=== PATIENT | male | born 1965 | race Caucasian/White ===

== ENCOUNTER 2021-08-31 16:00 | Emergency (ER) | payer BC, SELFPAY ==
[2021-08-31 16:15] VITALS: BP 141/89; PULSE 81; RESP 19; TEMP 36.8; O2SAT 98; BMI 31.7
--- NOTE | 2021-08-31 16:32 | HMH.EDUTC ---
[facility] [place] Disposition Clinical Impression: Eye injury Qualifiers: Encounter type: initial encounter Laterality: right Qualified Code(s): S05.91XA - Unspecified injury of right eye and orbit, initial encounter Disposition: Home, Self-Care Condition on Discharge: Good Instructions: DI for Eye Contusion, Eye Contusion Additional Instructions: Go straight to [facility] upon leaving the [facility] for further treatment and examination Further instruction per Dr Miguel Referrals: Provider,Referral, [Primary Care Provider] - Time of Disposition: 17:14 Medical Decision Making - Jimmy Inquiry Pt receiving controlled substance: No Jimmy was queried for this patient: No Vital Signs: 08/31/21 16:15 08/31/21 16:37 Temperature 98.3 F 98.3 F Temperature Source Oral Pulse Rate 81 Pulse Rate [Right Brachial] 81 Respiratory Rate 19 19 Blood Pressure 141/89 H Blood Pressure [Right Arm] 141/89 H Blood Pressure Mean [Right Arm] 106 Blood Pressure Source [Right Arm] Automatic Cuff Blood Pressure Position [Right Arm] Sitting 02 Sat by Pulse Oximetry 98 Oxygen Delivery Method Room Air Medical Decision Narrative: Patient not wanting to be transferred to the ED for further examination and treatment for being hit in eye yesterday with rock States that eye is sore and hurting and feels like something is in it Called [facility] and they advised to send patient to the clinic and they would see him there and patient agreed to go straight to Clinic [facility] [place] HPI - General Stated complaint: AO 08/30@1300 hit in R eye by rock Time Seen by Provider: 08/31/21 16:32 Mode of Arrival: Ambulatory Source of Information: Patient Limitations: No Limitations Description of Symptoms (Recalled from Triage Doc. by RN): PATIENT C/O GETTING HIT IN RIGHT EYE BY ROCK YESTERDAY HEENT Symptoms (Recalled from RN notes): Yes Resp Symptoms (Recalled from RN notes): No Skin Symptoms (Recalled from RN notes): No MS Symptoms (Recalled from RN notes): No Functional Status (Recalled from RN notes): WNL - History of Present Illness Provider Complaint: Patient states that he was weedeating yesterday when a rock flew up and hit him in the right eye States that ever since he has been having pain in right eye, redness, and eye feels sore Denies loss of vision statse that it feels like something is in there - Related Data Allergies Allergy/AdvReac Type Severity Reaction Status Date / Time Penicillins Allergy Verified 08/31/21 16:28 - Worker's Comp Is this a Worker's Comp case?: No [facility] History - Hepatitis A Screen Attestation statement:: This patient has been screened for Hepatitis A risk factors. I have reviewed the patient's past medical history: Yes ROS Obtained: Yes All systems reviewed & no additional complaints, Yes Systems reviewed as appropriate & no additional complaints - Constitutional Constitutional: Reports system reviewed and no additional complaints, except as docu, Denies body ache, Denies chills, Denies fever(s) - Eyes Eyes: Reports system reviewed and no additional complaints, except as docu, Reports irritation, Reports eye pain, Reports other (redness and states that eye feels sore and hurts ) - ENT Ears, Nose, Mouth, and Throat: Reports system reviewed and no additional complaints, except as docu - Cardiovascular Cardiovascular: Reports system reviewed and no additional complaints, except as docu - Respiratory Respiratory: Reports system reviewed and no additional complaints, except as docu - Gastrointestinal Gastrointestingal: Reports: system reviewed and no additional complaints, except as docu Physical Exam - General General appearance: alert, in no apparent distress - Eye Eye exam: Present: other (redness, pain with movement and feeling of FB sensation after being hit with rock in eye yesterday) - Respiratory Respiratory exam: Present: normal lung sounds bilaterally. Absent: respir
[2021-08-31 16:37] VITALS: BP 141/89; PULSE 81; RESP 19; TEMP 36.8; O2SAT 98
== END 2021-08-31 16:40 | disposition home or self-care (01) ==
PROVIDERS: Emergency Provider Nurse Practitioner
DX: S05.91XA Unspecified injury of right eye and orbit, initial encounter (principal); Y93.H2 Activity, gardening and landscaping; Z88.0 Allergy status to penicillin
CPT/HCPCS: 99212; G0463

== ENCOUNTER 2021-09-09 11:40 | Emergency (ER) | payer BC, SELFPAY ==
[2021-09-09 11:50] VITALS: BP 148/98; PULSE 89; RESP 19; TEMP 37.6; O2SAT 98; BMI 31.7
--- NOTE | 2021-09-09 12:04 | HMH.EDUTC ---
[facility] [place] Impression: Otitis media Qualifiers: Otitis media type: unspecified Laterality: left Qualified Code(s): H66.92 - Otitis media, unspecified, left ear URI (upper respiratory infection) Qualifiers: URI type: unspecified URI Qualified Code(s): J06.9 - Acute upper respiratory infection, unspecified Disposition: Home, Self-Care Condition on Discharge: Good Instructions: Sore Throat, Middle Ear Infection, DI for Rash Additional Instructions: *Monitor Temp, Over the counter Motrin or Tylenol as directed/as needed Tylenol every 4 hours and Motrin every 6 hours (as long as your family doctor has told you that you can take it) for fever or pain. and straight to ER if unable to lower temp less than 101.0 after medication given *Warm salt water gargles may help to soothe the throat *Throat Lozenges *Warm fluids like tea with honey may help to soothe the throat *Sleep elevated *Humidifier/Vaporizer Start oral steriods tomorrow Your throat swab was sent for culture. Those results are typically sent to your primary care. Be sure to follow up in 2-3 days with your family doctor/primary care physician if no improvement so they can review those result and treat if necessary. If you don?t have a primary care doctor, I recommend you get one but in the mean time, you will have to return to a walk in clinic Follow up IMMEDIATELY for new or worsening symptoms or no Noticeable improvement over the next 48-72 hours. 911 for difficulty breathing or swallowing You were tested for today for COVID19 your test result should be back in the next 24-48 hours, your results will be available on the [facility] My Health portal you can view your results there Prescriptions: methylPREDNISolone [Medrol 4mg tab] 4 mg PO DIRECTED #21 tab Transmission Status: Received by [id number] Azithromycin [Z-Ryne 250mg Tab] 250 mg PO DIRECTED #6 tab Transmission Status: Received by [id number] Referrals: Provider,Referral, [Primary Care Provider] - As needed Forms: Work/School Release Medical Decision Making - Jimmy Inquiry Pt receiving controlled substance: No Jimmy was queried for this patient: No Vital Signs: 09/09/21 11:50 09/09/21 12:43 Temperature 99.7 F H 99.7 F H Temperature Source Oral Pulse Rate 89 Pulse Rate [Right Brachial] 89 Respiratory Rate 19 19 Blood Pressure 148/98 H Blood Pressure [Right Arm] 148/98 H Blood Pressure Mean [Right Arm] 114 Blood Pressure Source [Right Arm] Automatic Cuff Blood Pressure Position [Right Arm] Sitting 02 Sat by Pulse Oximetry 98 Oxygen Delivery Method Room Air - Lab Data Lab Results 09/09/21 11:54: Group A Strep Rapid Negative Orders (Tests/Meds): ED MEDICATIONS Discontinued Medications Generic Name Dose Route Start Last Admin Trade Name Yoly PRN Reason Stop Dose Admin Methylprednisolone Sodium Succinate 125 mg 09/09/21 12:23 09/09/21 12:40 Methylprednisolone Sod Succ 125mg Vial IM 09/09/21 12:24 125 mg ONCE ONE Administration ORDERS Category Date Time Status Full Resp Panel w/COVID ([facility]) Routine Lab 09/09/21 12:25 Ordered Strep Screen Confirmation Stat Micro 09/09/21 11:54 Received [facility] HPI - General Stated complaint: sore throat, h/a, fever Time Seen by Provider: 09/09/21 12:04 Mode of Arrival: Ambulatory Source of Information: Patient Limitations: No Limitations Description of Symptoms (Recalled from Triage Doc. by RN): PATIENT C/O SORE THROAT, COUGH, AND FEVER SINCE YESTERDAY. ALSO C/O HIVES TO ARM THAT STARTED TODAY HEENT Symptoms (Recalled from RN notes): Yes Resp Symptoms (Recalled from RN notes): Yes Skin Symptoms (Recalled from RN notes): Yes MS Symptoms (Recalled from RN notes): No Functional Status (Recalled from RN notes): WNL - History of Present Illness Provider Complaint: Patient states that he started feeling bad yesterday State that he has been having sore throat, pain in hi
[2021-09-09 12:18] LABS: Strep Scrn Group A (Rapid) Negative (Negative)
[2021-09-09 12:43] VITALS: BP 148/98; PULSE 89; RESP 19; TEMP 37.6; O2SAT 98
[2021-09-09 12:48] LABS: Adenovirus,PCR Not Detected (NotDetected); Bordetella Pertussis Not Detected (NotDetected); Chlamydophila Pneumoniae, PCR Not Detected (NotDetected); Coronavirus 229E Not Detected (NotDetected); Coronavirus NL63 Not Detected (NotDetected); Coronavirus OC43 Not Detected (NotDetected); Coronovirus HKU1,PCR Not Detected (NotDetected); Human Metapneumovirus Not Detected (NotDetected); Influenza A, PCR Not Detected (NotDetected); Influenza AH1, 2009 Not Detected (NotDetected); Influenza AH1, PCR Not Detected (NotDetected); Influenza AH3,PCR Not Detected (NotDetected); Influenza B, PCR Not Detected (NotDetected); Mycoplasma Pneumoniae, PCR Not Detected (NotDetected); Parainfluenza 1, PCR Not Detected (NotDetected); Parainfluenza 2, PCR Not Detected (NotDetected); Parainfluenza 3, PCR Not Detected (NotDetected); Parainfluenza 4, PCR Not Detected (NotDetected); Respiratory Syncytial Virus Not Detected (NotDetected); Rhinovirus/Enterovirus Not Detected (NotDetected)
[2021-09-09 16:20] LABS: Coronavirus 19, PCR Detected (NotDetected)
== END 2021-09-09 12:50 | disposition home or self-care (01) ==
PROVIDERS: Emergency Provider Nurse Practitioner
DX: U07.1 COVID-19 (principal); H66.92 Otitis media, unspecified, left ear; J06.9 Acute upper respiratory infection, unspecified; J02.9 Acute pharyngitis, unspecified; R51.9 Headache, unspecified; R50.9 Fever, unspecified; L50.9 Urticaria, unspecified; Z20.822 Contact with and (suspected) exposure to COVID-19; Z79.52 Long term (current) use of systemic steroids; Z88.0 Allergy status to penicillin
CPT/HCPCS: 87430; 87581; 87632; 87798; 96372; 99213; C9803; G0463; U0003; U0005

== ENCOUNTER 2021-11-10 16:46 | Emergency (ER) | payer BC, SELFPAY ==
[2021-11-10 17:04] VITALS: BP 167/103; PULSE 87; RESP 17; TEMP 36.7; O2SAT 99; BMI 31.7
--- NOTE | 2021-11-10 17:07 | PC.NURSE ---
laceration set-up for MD at the bedside
--- NOTE | 2021-11-10 17:39 | HMH.EDGENADL ---
ED Disposition Clinical Impression: Laceration of scalp Disposition: Home, Self-Care Condition on Discharge: Good Instructions: DI for Laceration Repair Referrals: Provider,Referral, [Primary Care Provider] - - Critical Care Critical Care Time: No Attestation: On 11/10/21, the high probability of a clinically significant, sudden or life threatening deterioration of the following system(s) required my full and direct attention, intervention and personal management. The time I documented below is in addition to time spent performing reported procedures but includes the following listed in this critical care notation. Medical Decision Making - Jimmy Inquiry Pt receiving controlled substance: No Vital Signs: 11/10/21 17:04 Temperature 98.1 F Temperature Source Oral Pulse Rate [Left Radial] 87 Respiratory Rate 17 Blood Pressure [Right Arm] 167/103 H Blood Pressure Mean [Right Arm] 124 02 Sat by Pulse Oximetry 99 Oxygen Delivery Method Room Air Medical Decision Narrative: Patient presents for evaluation of a laceration over the parieto-occipital scalp. Tetanus was updated. Wound was repaired with 4-0 suture. Patient was given return precautions and was instructed to follow-up in 7 days for repeat evaluation of removal. General Adult HPI - General Chief complaint: Wound/Laceration Stated complaint: AO08/12@1600aT HOME LAC BACK OF HEAD Time Seen by Provider: 11/10/21 17:35 Mode of Arrival: Ambulatory Limitations: No Limitations Description of Symptoms (Recalled from ER Triage Doc. by RN): pt to ed c/o laceration to the back of the head. pt states he stepped on a garden hoe and it hit him in the back of the head. laceration bleeding controlled on arival to ed. - History of Present Illness HPI narrative: Patient presents to the emergency department for evaluation traumatic injury sustained by a garden hoe struck in the back of his head without loss of consciousness. Patient received a laceration, last tetanus 2014. No other acute complaints at this time. - Related Data Previous Rx's Medication Instructions Recorded Azithromycin [Z-Ryne 250mg Tab] 250 mg PO DIRECTED #6 tab 09/09/21 methylPREDNISolone [Medrol 4mg 4 mg PO DIRECTED #21 tab 09/09/21 tab] Allergies Allergy/AdvReac Type Severity Reaction Status Date / Time Penicillins Allergy Verified 08/31/21 16:28 [facility] History - Hepatitis A Screen Attestation statement:: This patient has been screened for Hepatitis A risk factors. I have reviewed the patient's past medical history: Yes - Social History Alcohol Intake: never Occupational Status: other ROS Obtained: Yes All systems reviewed & no additional complaints Physical Exam - General General appearance: alert, in no apparent distress - Head Head exam: normocephalic, other (2 cm linear laceration over the left parieto-occipital scalp that does not appear grossly contaminated) - Eye Eye exam: Present: normal appearance - Neck Neck exam: Present: normal inspection - Chest Chest inspection: Present: normal inspection - Respiratory Respiratory exam: Absent: respiratory distress - Cardiovascular Cardiovascular exam: Present: regular rate - Abdominal Exam Abdominal exam: Present: soft - Neurological Exam Neurological exam: Present: alert - Psychiatric Psychiatric exam: Present: normal affect - Skin Skin exam: Present: warm Procedures - Laceration Laceration 1 Site: scalp Side (If applicable): left Description: linear Depth: simple, single layer Local Anesthetic: lidocaine 1% Skin layer closed with: other (Prolene) Size (cm): other (2) Number of sutures: 4 Size: 4-0 Number of sutures: 4 Technique: simple, interrupted
[2021-11-10 17:57] VITALS: BP 140/88; PULSE 87; RESP 18; TEMP 36.8; O2SAT 99
== END 2021-11-10 17:58 | disposition home or self-care (01) ==
PROVIDERS: Emergency Provider Emergency Medicine
DX: S01.01XA Laceration without foreign body of scalp, initial encounter (principal); W22.8XXA Striking against or struck by other objects, initial encounter
CPT/HCPCS: 12001; 90471; 90715; 99284

== ENCOUNTER 2022-03-31 13:43 | Emergency (ER) | payer BC, SELFPAY ==
[2022-03-31 15:18] VITALS: BP 162/96; PULSE 115; RESP 18; TEMP 37.6; O2SAT 96; BMI 32.5
--- NOTE | 2022-03-31 15:18 | EXP.UTC ---
Discharge Plan Disposition Patient Disposition: Home, Self-Care Condition: Good Prescriptions Prescriptions: New benzonatate [benzonatate] 100 mg capsule 100 mg PO TIDP PRN (Reason: Cough) Qty: 30 0RF oseltamivir [Tamiflu] 75 mg capsule 75 mg PO BID Qty: 10 0RF methylprednisolone 4 mg Tablets,Dose Pack 4 mg PO DIRECTED Qty: 21 0RF ondansetron 4 mg Tablet,Disintegrating 4 mg PO Q8H PRN (Reason: Nausea) Qty: 12 0RF No Action azithromycin 250 MG tablet 250 mg PO DIRECTED Qty: 6 0RF Rx Instructions: Take two (2) tablets on day #1, then one (1) tablet day #2 thru #5 methylprednisolone 4 MG tablet 4 mg PO DIRECTED Qty: 21 0RF Rx Instructions: Take as directed on package instructions Referrals Follow up/Referrals: Provider,Referral, MD [Primary Care Provider] - See instructions Activity Restrictions/Add. Instructions Additional Instructions/Restrictions: Drink plenty of fluids. Take tylenol or ibuprofen for pain or fever. Take the medications as directed. Follow up with your regular doctor. GO TO THE ER FOR ANY WORSENING SYMPTOMS Clinical Impressions Clinical Impression: Influenza A Instructions Patient Instructions: DI for Influenza -- Adult, Oseltamivir Discharge ED Provider: Devang Izquierdo [facility] General Stated complaint: head congestion, chills, body aches Time Seen by Provider: 03/31/22 15:18 History of Present Illness Provider Complaint: He states that for the past 2 days he has had fever, chills, body aches, chest congestion, and malaise. His son currently has influenza A. Related Data Previous Rx's Medication Instructions Recorded azithromycin 250 mg tablet 250 mg PO DIRECTED #6 tabs 09/09/21 methylprednisolone 4 mg tablet 4 mg PO DIRECTED #21 tabs 09/09/21 benzonatate 100 mg capsule 100 mg PO TIDP PRN Cough #30 caps 03/31/22 methylprednisolone 4 mg tablets in 4 mg PO DIRECTED #21 tabs 03/31/22 a dose pack ondansetron 4 mg disintegrating 4 mg PO Q8H PRN Nausea #12 tabs 03/31/22 tablet oseltamivir 75 mg capsule (Tamiflu) 75 mg PO BID #10 caps 03/31/22 Allergies Allergy/AdvReac Type Severity Reaction Status Date / Time Penicillins Allergy Verified 08/31/21 16:28 [facility] Disclaimer: The information contained in this section may have been updated after the patient was seen, as this information can be updated by other users. Social History Smoking Status: Former smoker alcohol intake: never current occupational status: other Travel in the last 8 weeks: None ROS Obtained: Yes All systems reviewed & no additional complaints except as documented Constitutional Constitutional: Reports chills and Reports fever(s) Eyes Eyes: Denies eye discharge ENT Ears, Nose, Mouth, and Throat: Reports as per HPI Cardiovascular Cardiovascular: Denies chest pain Respiratory Respiratory: Denies chest congestion and Reports cough Gastrointestinal Gastrointestingal: Reports nausea; Denies abdominal pain, constipation, cramping, diarrhea or vomiting Musculoskeletal Musculoskeletal: Denies arthralgias Integumentary/Breasts Skin/Breast: Denies rash Neurologic Neurologic: Denies paresthesias Physical Exam General General appearance: alert and in no apparent distress Head Head exam: atraumatic, normocephalic and normal inspection Eye Eye exam: Present normal appearance, PERRL and EOMI ENT ENT exam: Present normal exam, normal oropharynx, mucous membranes moist, TM's normal bilaterally and normal external ear exam Neck Neck exam: Present normal inspection, full ROM and trachea midline; Absent meningismus or lymphadenopathy Chest Chest inspection: Present normal inspection and symmetric chest wall rise; Absent tenderness Respiratory Respiratory exam: Present normal lung sounds bilaterally; Absent respiratory distress Cardiovascular Cardiovascular exam: Present regu
[2022-03-31 15:22] LABS: UTC Strep Screen (Rapid) Negative (Negative)
[2022-03-31 15:23] LABS: UTC Influenza A Antigen Positive (Negative); UTC Influenza B Antigen Negative (Negative)
[2022-03-31 15:31] VITALS: BP 162/96; PULSE 115; RESP 18; TEMP 37.6
== END 2022-03-31 15:32 | disposition home or self-care (01) ==
PROVIDERS: Emergency Provider Nurse Practitioner Family
DX: J10.1 Influenza due to other identified influenza virus with other respiratory manifestations (principal)
CPT/HCPCS: 87804; 87880; 99212; G0463

== ENCOUNTER 2022-04-22 13:28 | Emergency (ER) | payer BC, SELFPAY ==
[2022-04-22 14:10] VITALS: BP 140/89; PULSE 89; RESP 19; TEMP 37.1; O2SAT 98; BMI 31.0
--- NOTE | 2022-04-22 14:48 | EXP.UTC ---
Discharge Plan Disposition Patient Disposition: Home, Self-Care Condition: Good Prescriptions Prescriptions: New azithromycin [Zithromax Z-Ryne] 250 mg tablet See Rx Instructions .ROUTE .COMPLEX 5 Days Qty: 6 0RF Rx Instructions: For 250 mg dose pack: take 500 mg today (day 1), then 250 mg for 4 days (days 2-5) methylprednisolone [Medrol (Ryne)] 4 mg tablets,dose pack See Rx Instructions .Route .COMPLEX 6 Days Qty: 21 0RF Rx Instructions: taper pack; fluticasone propionate [Flonase Allergy Relief] 50 mcg/actuation spray,suspension 1 spray intranasal DAILY Qty: 16 0RF Rx Instructions: administer into each nostril Referrals Follow up/Referrals: Provider,Referral, MD [Primary Care Provider] - See instructions Activity Restrictions/Add. Instructions Additional Instructions/Restrictions: Start oral steriods Medrol dose pack tomorrow Start antibiotic today Use flonase as directed may take a couple days to notice any changes Return if needed Clinical Impressions Clinical Impression: Sinusitis Qualifiers: Sinusitis location: unspecified location Chronicity: unspecified Qualified Code(s): J32.9 - Chronic sinusitis, unspecified Instructions Patient Instructions: Sinusitis, Sinus Headache, DI for Sinusitis Discharge ED Provider: Mellissa Aparicio [facility] General Stated complaint: Headache pressure congestion Mode of Arrival: Ambulatory Source of Information: Patient Limitations: No Limitations Time Seen by Provider: 04/22/22 14:48 Description of Symptoms (Recalled from Triage Doc. by RN): PATIENT C/O SINUS PRESSURE, HEADACHE, CONGESTION AND RUNNY NOSE X 1 WEEK HEENT Symptoms (Recalled from RN notes): Yes Resp Symptoms (Recalled from RN notes): No Skin Symptoms (Recalled from RN notes): No MS Symptoms (Recalled from RN notes): No Functional Status (Recalled from RN notes): WNL History of Present Illness Provider Complaint: Patient states that he has been having sinus pain and pressure along with headache and runny nose States that it has continued to get worse over the last week and today he was still not feeling any better States that he has tried several over the counter medication but not helped so he came in Related Data Previous Rx's Medication Instructions Recorded azithromycin 250 mg tablet See Rx Instructions PO .COMPLEX 5 04/22/22 (Zithromax Z-Ryne) days #6 tabs fluticasone propionate 50 1 spray intranasal DAILY #16 grams 04/22/22 mcg/actuation nasal spray,suspension (Flonase Allergy Relief) methylprednisolone 4 mg tablets in See Rx Instructions .Route 04/22/22 a dose pack (Medrol (Ryne)) .COMPLEX 6 days #21 tabs Allergies Allergy/AdvReac Type Severity Reaction Status Date / Time Penicillins Allergy Verified 08/31/21 16:28 Worker's Comp Is this a Worker's Comp case?: No [facility] Disclaimer: The information contained in this section may have been updated after the patient was seen, as this information can be updated by other users. Medical History (Updated 04/22/22 @ 14:57 by Mellissa Aparicio APRN) History of gastroesophageal reflux (GERD) Hypertension Social History (Updated 04/22/22 @ 14:22 by Salma Thomas RN) Smoking Status: Former smoker alcohol intake: never current occupational status: other Travel in the last 8 weeks: None ROS Obtained: Yes All systems reviewed & no additional complaints except as documented and Yes Systems reviewed as appropriate & no additional complaints except as documented Constitutional Constitutional: Reports system reviewed and no additional complaints, except as documented, Reports as per HPI and Reports headache(s) ENT Ears, Nose, Mouth, and Throat: Reports system reviewed and no additional complaints, except as documented, Reports as per HPI, Reports otalgia, Reports headache(s), Reports sinus pain and Reports sinus pressure Cardiovascular Cardiovascular: Reports system reviewed and no additional
[2022-04-22 15:06] VITALS: BP 140/89; PULSE 89; RESP 19; TEMP 37.1; O2SAT 98
== END 2022-04-22 15:11 | disposition home or self-care (01) ==
PROVIDERS: Emergency Provider Nurse Practitioner
DX: J32.9 Chronic sinusitis, unspecified (principal)
CPT/HCPCS: 96372; 99212; 99213; G0463

== ENCOUNTER 2022-10-03 11:06 | Emergency (ER) | payer BC, SELFPAY ==
[2022-10-03 11:07] VITALS: BP 146/106; PULSE 81; RESP 18; TEMP 36.8; O2SAT 100; BMI 32.5
--- NOTE | 2022-10-03 11:17 | EXP.UTC ---
Discharge Plan Disposition Patient Disposition: Home, Self-Care Condition: Good Prescriptions Prescriptions: New triamcinolone acetonide 0.1 % cream 1 applic topical BID PRN (Reason: itching) Qty: 30 0RF methylprednisolone 4 mg Tablets,Dose Pack 4 mg PO DIRECTED Qty: 21 0RF No Action azithromycin [Zithromax Z-Ryne] 250 mg tablet See Rx Instructions .ROUTE .COMPLEX 5 Days Qty: 6 0RF Rx Instructions: For 250 mg dose pack: take 500 mg today (day 1), then 250 mg for 4 days (days 2-5) methylprednisolone [Medrol (Ryne)] 4 mg tablets,dose pack See Rx Instructions .Route .COMPLEX 6 Days Qty: 21 0RF Rx Instructions: taper pack; fluticasone propionate [Flonase Allergy Relief] 50 mcg/actuation spray,suspension 1 spray intranasal DAILY Qty: 16 0RF Rx Instructions: administer into each nostril Referrals Follow up/Referrals: Onelia Benavides APRN [Primary Care Provider] - See instructions Activity Restrictions/Add. Instructions Additional Instructions/Restrictions: Rest the extremity, apply ice for 15 minutes as tolerated three or four times per day for the next couple of days, Elevate the extremity as tolerated while you are resting. Take the medications as directed. Apply the topical medication as directed if you have itching of site. Follow up with your regular doctor. GO TO THE ER FOR ANY WORSENING SYMPTOMS OR CONCERNS Clinical Impressions Clinical Impression: Sting, insect Instructions Patient Instructions: DI for Insect Bites and Stings, Triamcinolone Topical, Methylprednisolone Discharge ED Provider: Devang Izquierdo [facility] General Stated complaint: LT hand possible insect sting 10/02 Time Seen by Provider: 10/03/22 11:17 History of Present Illness Provider Complaint: He is here with complaints of being stung on his left hand yesterday. He has swelling and redness of the affected hand. he states that he was mowing his grass when the sting occurred. He denies any swelling of his mouth or throat. Related Data Previous Rx's Medication Instructions Recorded azithromycin 250 mg tablet See Rx Instructions PO .COMPLEX 5 04/22/22 (Zithromax Z-Ryne) days #6 tabs fluticasone propionate 50 1 spray intranasal DAILY #16 grams 04/22/22 mcg/actuation nasal spray,suspension (Flonase Allergy Relief) methylprednisolone 4 mg tablets in See Rx Instructions .Route 04/22/22 a dose pack (Medrol (Ryne)) .COMPLEX 6 days #21 tabs methylprednisolone 4 mg tablets in 4 mg PO DIRECTED #21 tabs 10/03/22 a dose pack triamcinolone acetonide 0.1 % 1 applic topical BID PRN itching 10/03/22 topical cream #30 grams Allergies Allergy/AdvReac Type Severity Reaction Status Date / Time Penicillins Allergy Verified 08/31/21 16:28 [facility] Disclaimer: The information contained in this section may have been updated after the patient was seen, as this information can be updated by other users. Medical History History of gastroesophageal reflux (GERD) Hypertension Social History Smoking Status: Former smoker alcohol intake: never current occupational status: other Travel in the last 8 weeks: None ROS Obtained: Yes All systems reviewed & no additional complaints except as documented Constitutional Constitutional: Denies chills and Denies fever(s) Eyes Eyes: Denies eye discharge ENT Ears, Nose, Mouth, and Throat: Denies dizziness, Denies otalgia and Denies sore throat Cardiovascular Cardiovascular: Denies chest pain Respiratory Respiratory: Denies shortness of breath, Denies chest congestion, Denies cough, Denies stridor and Denies wheezing Gastrointestinal Gastrointestingal: Denies nausea or vomiting Musculoskeletal Musculoskeletal: Reports system reviewed and no additional complaints, except as documented and Denies arthralgias Integumentary/Breast
[2022-10-03 11:46] VITALS: BP 146/106; PULSE 81; RESP 18; TEMP 36.8; O2SAT 100
== END 2022-10-03 11:47 | disposition home or self-care (01) ==
PROVIDERS: Emergency Provider Nurse Practitioner Family; PCP Nurse Practitioner Family
DX: S60.562A Insect bite (nonvenomous) of left hand, initial encounter (principal); W57.XXXA Bitten or stung by nonvenomous insect and other nonvenomous arthropods, initial encounter; I10 Essential (primary) hypertension; Z87.891 Personal history of nicotine dependence
CPT/HCPCS: 99212; 99214; G0463

== ENCOUNTER 2023-03-12 18:24 | Emergency (ER) | payer BC, SELFPAY ==
[2023-03-12 18:26] VITALS: BP 157/97; PULSE 98; RESP 18; TEMP 36.8; O2SAT 99; BMI 32.5
--- NOTE | 2023-03-12 18:38 | HMH.EDGENADL ---
Discharge Plan Disposition Patient Disposition: Home, Self-Care Prescriptions Prescriptions: New levofloxacin 750 mg tablet 750 mg PO DAILY 10 Days Qty: 10 0RF No Action venlafaxine 75 mg capsule,extended release 24hr 75 mg PO DAILY Patient Comments: TAKE 1 CAPSULE BY MOUTH ONCE DAILY, DO NOT CRUSH OR CHEW enalapril maleate 20 mg tablet 40 mg PO DAILY Patient Comments: TAKE 2 TABLETS BY MOUTH ONCE DAILY amlodipine 5 mg tablet 5 mg PO DAILY Patient Comments: TAKE 1 TABLET BY MOUTH ONCE DAILY lansoprazole 30 mg capsule,delayed release(DR/EC) 30 mg PO DAILY Referrals Follow up/Referrals: Froilan Jimenes MD [Staff Physician] - See instructions Provider,MD Yaneth [Primary Care Provider] - See instructions Activity Restrictions/Add. Instructions Additional Instructions/Restrictions: At this time is felt you are safe to be discharged home. If new or worsening symptoms please do not hesitate to return the emergency department. Please take antibiotics as prescribed and call and schedule an appointment with Dr. Jimenes as soon as you are able. For pain control please take Tylenol and ibuprofen every 6 hours. Clinical Impressions Clinical Impression: Acute epididymitis, Hydrocele Discharge ED Provider: Teddy Pierson General Adult HPI General Chief complaint: PAIN Stated complaint: groin pain Time Seen by Provider: 03/12/23 18:32 History of Present Illness HPI narrative: Patient is a 57-year-old male with past medical history of vasectomy, no significant pertinent past medical history who presents emergency department for evaluation of testicular pain. Onset was acute, occurring at 2 AM Saturday morning. It awoke patient from his sleep. He has no abdominal pain, no dysuria, no cough, no respiratory symptoms, no other acute complaints at this time. Patient has had persistent pain and swelling of his left testicle causing him to present here for continued evaluation. Related Data Home Medications Medication Instructions Recorded Confirmed amlodipine 5 mg tablet 5 mg PO DAILY 03/12/23 03/12/23 enalapril maleate 20 mg tablet 40 mg PO DAILY 03/12/23 03/12/23 lansoprazole 30 mg capsule,delayed 30 mg PO DAILY 03/12/23 03/12/23 release venlafaxine 75 mg capsule,extended 75 mg PO DAILY 03/12/23 03/12/23 release 24 hr Previous Rx's Medication Instructions Recorded levofloxacin 750 mg tablet 750 mg PO DAILY 10 days #10 tabs 03/12/23 Allergies Allergy/AdvReac Type Severity Reaction Status Date / Time Penicillins Allergy Verified 08/31/21 16:28 [facility] Disclaimer: The information contained in this section may have been updated after the patient was seen, as this information can be updated by other users. Medical History History of gastroesophageal reflux (GERD) Hypertension Social History Smoking Status: Never smoker alcohol intake: never current occupational status: other Travel in the last 8 weeks: None ROS Obtained: Yes Systems reviewed as appropriate & no additional complaints except as documented Physical Exam General General appearance: alert and in no apparent distress Head Head exam: atraumatic and normocephalic Eye Eye exam: Present PERRL and EOMI ENT ENT exam: Present mucous membranes moist Neck Neck exam: Present normal inspection Chest Chest inspection: Present normal inspection and symmetric chest wall rise Respiratory Respiratory exam: Absent respiratory distress Cardiovascular Cardiovascular exam: Present regular rate and normal rhythm Abdominal Exam Abdominal exam: Present soft; Absent tenderness exam: Present other (Tier In present, asymmetrically swollen left testicle that is tender to palpation, high lie, no tenderness or masses in the bilateral inguinal canals. Nontender right testicle. No lesio
--- NOTE | 2023-03-12 18:44 | US_ITS ---
PROCEDURE INFORMATION: Exam: US Scrotum Exam date and time: 03/12/2023 7:10 PM Age: 57 years old Clinical indication: Scrotum pain; Additional info: L testicle pain, swelling TECHNIQUE: Imaging protocol: Real-time ultrasound of the scrotum and contents with color Doppler and image documentation. COMPARISON: No relevant prior studies available. FINDINGS: Right testicle: Normal. No mass. No torsion. Normal vascular flow. Left testicle: Normal. No mass. No torsion. Normal vascular flow. Epididymides: Mildly thickened right epididymis demonstrating normal vascularity. Mild thickened left epididymis demonstrating mildly increased vascularity. Scrotum/soft tissues: Small bilateral debris containing hydroceles. IMPRESSION: 1. Mildly thickened left epididymis demonstrating mildly increased vascularity, findings suggestive of mild epididymitis. 2. Small bilateral debris containing hydroceles.
--- NOTE | 2023-03-12 18:45 | PC.NURSE ---
spoke with radiology and had US paged for r/o testicular torsion
[2023-03-12 19:07] LABS: Basophils # 0.1 K/mm3 (0-0.2); Basophils % 0.8 % (0.1-2.0); Eosinophils # 0.1 K/mm3 (0.0-0.4); Eosinophils % 2.1 % (0.1-12.0); Hematocrit 42.6 % (42.0-52.0); Hemoglobin 14.8 g/dL (14.1-18.0); Lymphocytes # 1.5 K/mm3 (0.7-4.5); Lymphocytes % 23.9 % (10-50); Mean Corpuscular HGB Conc 34.7 g/dL (31.8-35.4); Mean Corpuscular Hemoglobin 32.2 pg (27.0-31.2); Mean Corpuscular Volume 92.8 fl (80-94); Mean Platelet Volume 7.4 fl (7.4-10.4); Monocytes # 0.4 K/mm3 (0.1-1.0); Monocytes % 6.1 % (1.7-9.3); Neutrophils # 4.2 K/mm3 (1.8-7.8); Neutrophils % 67.1 % (37.0-80.0); Platelet Count 412 K/mm3 (142-424); Red Blood Count 4.59 M/mm3 (4.60-6.20); Red Cell Distribution Width 12.9 % (11.5-17.5); White Blood Count 6.2 K/mm3 (4.8-10.8)
[2023-03-12 19:12] LABS: Chloride 93 mmol/L (98-107); Sodium 133 mmol/L (136-145)
[2023-03-12 19:15] LABS: Blood Urea Nitrogen 12 mg/dl (9-20); Calcium 9.5 mg/dl (8.4-10.2); Carbon Dioxide 31 mmol/L (22.0-30.0); Creatinine Clearance Estimated 129 mL/min (50-200); Estimated Glomerular Filt Rate 87 ml/min (>60); GFR (African American) 106 ML/MIN (>60); Glucose 98 mg/dl (74-100)
[2023-03-12 19:24] LABS: Microscopic, Urine URINE MICROSCOPIC (MICROSCOPIC)
--- NOTE | 2023-03-12 19:41 | PC.NURSE ---
pt back from US
[2023-03-12 19:43] VITALS: BP 144/94; PULSE 82; O2SAT 100
[2023-03-12 19:52] LABS: Appearance,Urine CLEAR (Clear); Bilirubin,Urine Negative (Negative); Blood, Urine Negative (Negative); Color,Urine YELLOW (Yellow); Glucose,Urine (UA) Negative (Negative); Ketones,Urine Negative (Negative); Leukocyte Esterase,Urine Negative (Negative); Nitrate,Urine Negative (Negative); Protein,Urine Negative (Negative); Specific Gravity, Urine 1.015 (1.005-1.030)
[2023-03-12 20:09] VITALS: BP 136/82; PULSE 79; RESP 18; TEMP 37; O2SAT 96
[2023-03-12 20:20] LABS: Squamous Epithelial Cell,Urine Occasional #/hpf (0-5)
== END 2023-03-12 20:14 | disposition home or self-care (01) ==
PROVIDERS: Emergency Provider Emergency Medicine
DX: N45.1 Epididymitis (principal); N43.3 Hydrocele, unspecified; I10 Essential (primary) hypertension
CPT/HCPCS: 76870; 80048; 81001; 85025; 96374; 96375; 99285; J0131

== ENCOUNTER 2024-07-19 20:28 | Emergency (ER) | payer BC, SELFPAY ==
--- OUTSIDE RECORDS SUMMARY | 2024-07-19 20:41 | XMS_ITS | Continuity of Care Document ---
Author Organization [facility] [place] Address [address] [place] [address] Care Team Providers Care Manager Care Management Name Role Phone JAMES PEDERSON Orthopedic Surgeon Assessment No assessment recorded. Plan of Treatment Reminders Order Date Submit Date Provider Last Modified By Organization Details Last Modified Time Details Appointments RECHEC K 2024 01:00P M JAMES PEDERSON MD Not available Not available Not available Lab None record ed. Referral None record ed. Procedures None record ed. Surgeries None record ed. Imaging XR, knee, 3 view - room [address] , [place], [address], 06/02/2024 15:44:18 XR, tibia + fibula [address] [place], [address], 06/02/2024 15:03:02 Medication Orders None record ed. Patient TargetsNo targets recorded. Patient InstructionsNo instructions recorded. Reason for Referral None Reported. Results Created Date Observation Date Name Description Value Unit Range Abnormal Flag Note LastModifiedBy Organization Detail LastModifiedTime 05/21/1905/21/2024 XR, knee, [address] [place] [address] [phone] Rodrigue alberto Name: SOCO FRIEDMAN Maurizio alberto : 967 Rodrigue alberto 87 Orderi ng Provid er: DULCE MINAYA EXAM DATE: 2024 EXAM: XR LT KNEE 3 VIEWS COMPAR CHELSEY: 025 HISTOR Y: Follow -up of prior surger y. FINDIN GS: Again seen is a left knee total arthro plasty . There is no eviden ce of loosen ing. No fractu re is identi fied. Contra latera l knee: There are mild degene rative change s. IMPRES URBANO: 1. There is a left total knee arthro plasty in place withou t eviden ce of loosen ing. Interp reted By: Khloe emmanuel MD Electr onical ly Signed By: Khloe emmanuel MD on 2:53 PM [email or web address] [facility] [address] , [place], [address], 05/21/2024 15:05:55 06/03/1906/02/2024 [facility] [address] [place] [address] Rodrigue alberto Name: SOCO alberto : 967 Rodrigue alberto 87 Orderi ng Provid er: SPARKLE BRUNA EXAM DATE: 2024 EXAM: XR LT TIB/FI B HISTOR Y: Follow -up of a left knee arthro plasty COMPAR CHELSEY: Radiog raph of the same date FINDIN GS: There is a left knee arthro plasty in place. There is no eviden ce of loosen ing. No acute fractu re is identi fied. There are postsu rgical change s in the mid shaft of the tibia. IMPRES URBANO: 1. There is a left knee arthro plasty in place. Interp reted By: Khloe emmanuel MD Electr onical ly Signed By: Khloe emmanuel MD on 06/03/19 2:57 PM [email or web address] [facility] [place] [address] , [place], [address], 06/05/2024 13:28:12 06/03/19 25 06/02/2024 XR, knee, 3 view [facility] [address] [place] [address] Rodrigue alberto Name: SOCO alberto : 967 Rodrigue alberto 87 Orderi ng Provid er: [facility] EXAM DATE: 2024 EXAM: XR LT KNEE 3 VIEWS COMPAR CHELSEY: 025 HISTOR Y: Follow -up of prior surger y. FINDIN GS: Again seen is a left knee total arthro plasty . There is mild lucenc y adjace nt to the stem of the tibial compon ent. No fractu re is identi fied. There is anteri or soft tissue swelli ng. Contra latera l knee: There are mild degene rative change s. IMPRES URBANO: 1. There is a left total knee arthro plasty in place with mild lucenc y adjace nt to the stem of the tibial compon ent. Interp reted By: Khloe emmanuel MD Electr onical ly Signed By: Khloe emmanuel MD on 06/03/19 3:39 PM [email or web address] [facility] [place] [address], [place], [address], 06/05/2024 13:28:12 07/08/19 25 07/07/2024 XR, tibia + fibul a [facility] [address] [address] Rodrigue alberto Name: SOCO alberto : 967 Rodrigue alberto 87 Orderi ng Provid er: [facility] EXAM DATE: 2024 EXAM: XR LT TIB/FI B HISTOR Y: Left lower leg infect ion COMPAR CHELSEY: None. FINDIN GS: There is a left total knee arthro plasty in place. There is no eviden ce of loosen ing. The left tibia and fibula are normal in alignm ent. No acute fractu re is identi fied. No acute perios teal thicke mireille is seen. IMPRES URBANO: 1. There is a left knee arthro plasty in place. Interp reted By: Khloe emmanuel MD Electr onical ly Signed By: Khloe emmanuel MD on 07/08/19 2:55 PM INTERFACE [facility] [address] , [place], [address], 07/07/2024 15:00:14 07/08/1907/07/2024 XR, joint , multi ple, 1 view [facility] [address] [place] [address] Patien t Name: SOCO alberto : 967 Patien t 87 Orderi ng Provid er: SPARKLE MCFARLAND EXAM DATE: 2024 EXAM: XR LONG LEG LEFT/ JOINT SURVEY COMPAR CHELSEY: Radiog raph of the same date HISTOR Y: Follow -up of prior surger ySharmila GILES GS: There is a left total knee arthro plasty in place. There is no eviden ce of loosen ing or compli cation . The mechan ical axis of the left knee is normal . No fractu re is identi fied. There are mild degene rative change s in the left hip and minima l degene rative change s in the ankle. IMPRES URBANO: 1. There is a left knee arthro plasty in place withou t eviden ce of compli cation . Interp reted By: Khloe emmanuel MD Electr onical ly Signed By: Khloe emmanuel MD on 07/08/19 2:55 PM [facility] [address] , [place], [address], 07/10/2024 12:43:09 07/15/1907/14/2024 CT, lower leg, w/o contr ast [facility] [address] [facility] [place] [address] Rodrigue alberto Name: SOCO alberto : 967 Rodrigue alberto 87 Orderi ng Provid er: SPARKLE MCFARLAND EXAM DATE: 2024 EXAM: CT LT TIB-FI B/CALF WITHOU T CONTRA ST HISTOR Y: 58-yea r-old male with a soft tissue mass along the anteri or aspect of the left lower leg. COMPAR CHELSEY: 07/08/19 25 TECHNI QUE: 1.0 mm axial direct images were obtain ed throug h the left tibia and fibula , and comput er genera shabnam lezama l, sagjelani al, and reform atted axial sequen meera were genera shabnam from the source images . FINDIN GS: The left tibia and fibula are normal in alignm ent. No fractu re is identi fied. There are mild degene rative change s in the ankle. There is a left total knee arthro plasty in place. There is no eviden ce of loosen ing of the arthro plasty . There is soft tissue promin ence along the anteri or margin of the tibial shaft. This is immedi ately adjace nt to a postsu rgical cortic al defect made in the tibia. This measur es approx imatel y 1.5 cm cranio caudad , 1.5 cm transv erse and 5 mm in thickn ess. There is mildly increa sed attenu ation in the anteri or aspect of the adjace nt intram edulla ry space. The muscle s of the left lower leg appear normal . There is no focal fatty infilt ration or atroph y. No tendon tear is identi fied. IMPRES URBANO: 1. There is focal soft tissue promin ence along the anteri or margin of the left tibial shaft which is immedi ately adjace nt to 2 postsu rgical cortic al defect s made in the tibia. There is also mildly increa sed attenu ation in the anteri or aspect of the adjace nt intram edulla ry space. There is soft tissue promin ence could repres ent scarri ng, but an infect ion extend ing into the adjace nt bone cannot be exclud ed. Interp reted By: Khloe emmanuel MD Electr onical ly Signed By: Khloe emmanuel MD on 025 4:[email or web address] Radiology [facility] [address] [place], [address], 07/15/2024 14:36:18 Result Notes None recorded. Problems Name Problem SNOMED Code Status Onset Date Resolution Date Notes Provider Name and Address Organization Details Recorded Time Pain of left knee joint 1361127345501 07 Active 2023 ROBERT GAITAN, PT, DPT [address] [place], [address], [facility] 4 14:18:00 Osteoarthri tis of left knee joint [id number] 09 Active 2023 ROBERT GAITAN, PT, DPT [address] [place], [address], [facility] 4 14:18:01 Problem Notes None recorded. Procedures Surgical History Date Name Laterality Status Provider Name and Address Organization Details Recorded Time 5 I&D Hematoma, Seroma or Fluid Collection completed SPARKLE MCFARLAND PA-C [address] [place], [address], [facility] 06/30/2024 12:24:55 5 total replacement of left knee joint completed Blanquita Saenz [facility] 04/30/2024 08:22:45 5 PCM Visit completed Mia Mccray [facility] 04/07/2024 15:29:36 4 PT Evaluation - Low Complexity completed ROBERT GAITAN, PT, DPT [address] [place], [address], [facility] 03/31/2024 14:16:18 4 PT Therapeutic Exercise completed ROBERT GAITAN, PT, DPT [address] [place], [address], [facility] 03/31/2024 14:17:47 4 Aspiration Joint/Bursa, Major completed DULCE MINAYA PA-C [address] [place], [address], [facility] 01/29/2024 12:37:10 4 arthroscopy of knee completed Liz Gary [facility] 01/29/2024 11:11:26 Orthopedic Surgery completed Liz Gary [facility] 01/29/2024 11:13:06 Imaging Results None recorded. Procedure Notes None recorded. Medical Equipment None Reported. Allergies Allergen ID Allergen Name Allergen Category Reaction Reaction Severity Criticality Documentation Date Start Date Code Code System Note Provider Name and Address Organization Details Recorded Time 538306 Product containin g penicilli n (product) medicatio n Not available Not available Not available 01/29/2024 93775 8001 SNOMED HAROLDO ASENCIO MD [address] [place], [address] , [facility] 5 14:20:36 327949 acetamino phen / oxycodone medicatio n Not available Not available Not available 01/29/2024 86659 3 RxNorm Sukhdevcecilia Gary [facility] 4 11:09:45 Medications Name Sig Start Date Stop Date Status Note LastModified by Organization Details LastModified Time Colace 100 mg capsule Take 1 capsule twice a day by oral route for 14 days, for constipat ion. 2024 active Not Available Not Available Not Avai lable hydrocodone 5 mg-acetamin ophen 325 mg tablet Take 1 tablet every 6 hours by oral route. 06/02 completed Not Available Not Available Not Available enalapril maleate 20 mg tablet Take 2 tablets every day by oral route. active Not Available Not Available No t Available meloxicam 15 mg tablet Take 1 tablet every day by oral route, for inflammat ion. 06/02 completed Not Available Not Available Not Available ondansetron HCl 4 mg tablet Take 1 tablet every 8 hours by oral route as needed, for nausea. 06/02 completed Not Available Not Available Not Available Medrol (Ryne) 4 mg tablets in a dose pack Take 1 dose pk every day by oral route. 06/02 completed Not Available Not Available Not Available aspirin 81 mg tablet,alma yed release Take 1 tablet twice a day by oral route for 30 days, for preventio n of blood clots. 06/02 completed Not Available Not Available Not Available tramadol 50 mg tablet Take 1 tablet every 6 hours by oral route. 2024 active Not Available Not Available Not Avai lable cefadroxil 500 mg capsule Take 1 capsule twice a day by oral route for 7 days, for infection preventio n. 06/02 completed Not Available Not Available Not Available hydrocodone 7.5 mg-acetamin ophen 325 mg tablet Take 1 tablet every 6 hours by oral route as needed, for left knee post op pain. 06/02 completed Not Available Not Available Not Available cephalexin 500 mg capsule Take 1 capsule twice a day by oral route with meal(s) for 10 days. 06/30 completed Not Available Not Available Not Available ibuprofen 600 mg tablet Take 1 tablet 3 times a day by oral route. 06/02 completed PRN Not Available Not Available Not Available Bactrim DS 800 mg-160 mg tablet Take 1 tablet every 12 hours by oral route for 10 days. 2024 active Not Available Not Available Not Avai lable Lyrica 75 mg capsule Take 1 capsule every day by oral route at bedtime, for nerve pain. 06/02 completed Not Available Not Available Not Available Effexor XR active Not Available Not Av ailable Not Available Norvasc active Not Available Not Avail able Not Available allopurinol 03/31 completed Not Available Not Available Not Available Prevacid active Not Available Not Avai lable Not Available tranexamic acid 650 mg tablet Take 1 tablet 3 times a day by oral route for 3 days, for minimizin g post operative bleeding. 06/02 completed Not Available Not Available Not Available Vitals Date Recorded Body height Body mass index (BMI) Body weight Pain severity - 0-10 verbal numeric rating [Score] - Reported Provider Name and Address Organization Details Last Updated DateTime 06/02/2024 175.26 cm 32.5 kg/m2 37639.32 g 4 Blanquita Saenz [facility] 06/02/2024 13:49:04 Social History Question Answer Notes LastModified by Organizat ion Details LastModified Time Tobacco Smoking Status Never Smoker Blanquita Saenz [facility] 04/30/2024 08:22:33 What Is Your Level Of Alcohol Consumption? None [email or web address] Information not available 04/30/2024 What Was The Date Of Your Most Recent Tobacco Screening? 06/02/2024 [email or web address] Information not available 06/02/2024 Do You Use Any Illicit Or Recreational Drugs? No [email or web address] Information not available 04/30/2024 Has Tobacco Cessation Counseling Been Provided? No [email or web address] Information not available 04/30/2024 Do You Or Have You Ever Used Any Other Forms Of Tobacco Or Nicotine? No [email or web address] Information not available 04/30/2024 Sex: Male Functional Status None recorded. Mental Status None recorded. Family History Nothing Reported. Medical History Condition Response Coronary Artery Disease N Gout N Other N Kidney Stones N Hyperthyroidism N Blood Transfusion N Head Trauma/Injury N Emphysema N Depression N COPD N Pneumonia N Venereal Disease N Seasonal Allergies N Anxiety Disorder N Muscle, Joint, or Bone Problems N Arthritis Y Previous injury to face N Blood Clot N Cancer N Stroke N Neck Injury N Leg or Foot Ulcers N Neurologic Disorder N Rheumatoid Arthritis N Headaches N Kidney Disease N Heart Problems N Heart Conditions N Hospitalizations N Migraines N Carpel Tunnel N Skin Problems N Meningitis N Ulcers N Other Skin Condition N Rhinitis N Rheumatic Fever N Bleeding Disorder N Tuberculosis N Genetic Disorder N AIDS/HIV N Nasal polyps Y Asthma N Peripheral Vascular Disease N GERD/Reflux Y Hepatitis N Neuropathy N Included as Review of Systems N Pulmonary Embolism N Chicken Pox N Anxiety/Depression N Thyroid Disease N Hernia N Lung Disease N Hypothyroidism N Glaucoma N Nasal or Sinus Problems N Pacemaker N Measles N Anesthesia Complications N Genitourinary Disease N Hearing Loss N Serious Illness or Injuries N Radiation Therapy N Blood Thinners N Alcohol Overuse/Alcohol Abuse N High Cholesterol N Liver Disease N Organ Transplant N Panic Disorder N Allergies/Hayfever Y Mumps N Thyroid Problems N GI Problems N Anemia N Immune System Disorder N Heart Attack (NM) N Mental Illness N Psychiatric Illness N Neurological Problems N Diabetes N Seizures/Epilepsy N Hyperlipidemia N Hepatitis B N Rubella N Epilepsy/Seizures N Reflux/GERD Y Sleep Apnea N Heart Disease N Hypertension Y Osteoporosis N Past Encounters Encounter ID Performer Location Encounter Start Date Encounter Closed Date Diagnosis/Indication Diagnosis SNOMED-CT Code Diagnosis ICD10 Code Diagnosis Note [id number] DULCE MINAYA PA-C [facility] [address] [place] [address] 05/21/2024 14:25:41 05/21/2024 15:04:17 History of total knee arthroplasty [id number] 105 Z96.652 Hernán is now 6 weeks s/p L TKA. Overall, improving slowly. We will transition him down to tramadol for pain control moving forward. Incision is healing nicely, okay to submerge. Small area at the pinhole site from robot slightly irritated with no drainage or dehiscence . Further wound care instructio ns provided. Range of motion has improved. No restrictio ns moving forward, slowly increase his activities as tolerated. Reviewed 6 weeks instructio ns, answered all questions and concerns Radiograph s obtained today reveal intact TKA implants in good positionin gand alignment, with no evidence of loosening, lysis or RLLs.Physi selam exam reveals good ROM without pain and a well-heale d surgicalin cision.We reviewed the expected progressio n of recovery and rehabilita tion from a total knee replacemen t andexplain ed that any symptoms such as nighttime aching and morning stiffness are due to softtissue weakness, are within expectatio ns at this point post-op and should resolve over time asthey build strength and stamina. At this time, the patient is encouraged to gradually resumeacti vities of daily living as comfortabl e, including walking for increasing periods of time,swimm ing, and driving. The patient should begin working on strengthen ing the leg; weemphasiz ed the importance of continuing their HEP to build and maintain strength. Wereviewed scar massages and tissue mobilizati on. RTC in 6-8 weeks with LLXR. [id number] SPARKLE MCFARLAND PA-C [facility] [place] [address] [place] [address] 06/02/2024 13:39:21 06/02/2024 15:11:13 History of left total knee replacement [id number] 245243 Z96.652 Assessment : LTKA 7 weeks, pinsite infection Continue cephalexin , chrolexhad ine washes, keep dry and clean, scar mobilizati onFollow up in 1 month or sooner if worsening symptoms. I think most will resolve with time and as the suture continues to break down. Radiograph s remain reassuring no fracture or stress fracture at pin sites. Health Concerns Section Related Observation LastModified by Organization Detai ls LastModified Time None Recorded Concern Status LastModified by Organization Details LastModified Time None Recorded Payers Encounter Date Sequence Insurance Name Policy Number Policy Denis Covered Member ID Denis Member ID Guarantor Name 06/02/2024 1 [employer]-MD: CHALO HERNANDEZ OF [place] (O) [id number] [employer] [id number] [employer] Notes Date Note Type Note Provider Name and Address Organization Details Recorded Time 06/02/2024 text/html 06/02/24Patient is {{ 7.5#}} weeks s/p {{L* R B}} TKA. s/p 04/10/24.Pain is {{completely better improving worse*}} left lower leg swelling and redness.Currently taking {{no <3 3-4* >4}} doses per day of narcotic, Tramadol 50mg.Ambulating with {{wheelchair walk er cane* no assistive device}}PT: {{SNF home health outpatient * HEP}} [facility] in [place], [place]. Denies fevers, chills, or wound drainage.They {{do do not*}} request a refill of pain medicine. SPARKLE MCFARLAND PA-C [address] [place], [address], [facility] 06/02/2024 16:33:33
--- OUTSIDE RECORDS SUMMARY | 2024-07-19 20:41 | XMS_ITS | Continuity of Care Document ---
Author Organization [facility] Address [address] [place] [address] Care Team Providers Care Probation Officer Name Role Phone JAMES PEDERSON Orthopedic Surgeon Assessment No assessment recorded. Plan of Treatment Reminders Order Date Submit Date Provider Last Modified By Organization Details Last Modified Time Details Appointments RECHEC K 2024 01:00P M JAMES PEDERSON MD Not available Not available Not available Lab None record ed. Referral None record ed. Procedures None record ed. Surgeries None record ed. Imaging CT, lower leg, w/o contra st - lookin g for possib le stress fractu re at pin site from TKA in left tibia 2024 025 [facility] [place], [address], [address], 07/14/2024 16:41:36 Medication Orders None record ed. Patient TargetsNo targets recorded. Patient InstructionsNo instructions recorded. Reason for Referral None Reported. Results Created Date Observation Date Name Description Value Unit Range Abnormal Flag Note LastModifiedBy Organization Detail LastModifiedTime 07/08/1907/07/2024 XR, tibia + fibul a [facility] [address] [place] [address] Patiyinka t Name: SOCO alberto : 9[address] Orderi ng Provid er: SPARKLE MCFARLAND EXAM DATE: 2024 EXAM: XR LT TIB/FI [...] emmanuel MD on 07/08/19 2:55 PM INTERFACE [facility] [address] , [place], [address], 07/07/2024 15:00:14 07/08/1907/07/2024 XR, joint , multi ple, 1 view [facility] [address] [address] [phone] Patiyinka alberto Name: SOCO Keller Patiyinka alberto : [address] Orderi ng Provid er: SPARKLE MCFARLAND EXAM DATE: 2024 EXAM: XR LONG LEG LEFT/ JOINT SURVEY COMPAR CHELSEY: Radiog raph of the same date HISTOR Y: Follow -up of prior surger y. FINDIN GS: There is a left total [...] Khloe emmanuel MD on 07/08/19 2:55 PM [email or web address] [facility] [address] , [place], [address], 07/10/2024 12:43:09 07/15/19 25 07/14/2024 CT, lower leg, w/o contr ast [facility] [address] [place] [address] [place] [address] Patiyinka t Name: SOCO alberto : [address] Orderi ng Provid er: SPARKLE MCFALRAND EXAM DATE: 2024 EXAM: CT LT TIB-FI B/CALF WITHOU T CONTRA ST HISTOR Y: 58-yea r-old male with a soft tissue mass along the anteri or aspect of the left lower leg. COMPAR CHELSEY: 07/08/19 TECHNI QUE: 1.0 mm axial direct images were obtain ed throug h the left tibia and fibula , and comput er genera shabnam lezama l, sagitt al, and reform atted axial sequen meera [...] Khloe emmanuel MD on 025 4:36 PM [email or web address] [facility] [address] [place], [address], 07/15/2024 14:36:18 Result Notes None recorded. Problems Name Problem SNOMED Code Status Onset Date Resolution Date Notes Provider Name and Address Organization Details Recorded Time Pain of left knee joint 7090718574804 07 Active 2023 ROBERT AGITAN, PT, DPT [address] [place] [address], [address], [facility] 4 14:18:00 Osteoarthri tis of left knee joint 7493323212056 09 Active 2023 ROBERT GAITAN, PT, DPT [address] [place] [address], [address], [facility] 4 14:18:01 Problem Notes None recorded. Procedures Surgical History Date Name Laterality Status Provider Name and Address Organization Details Recorded Time 5 I&D Hematoma, Seroma or Fluid Collection completed SPARKLE MCFARLAND PA-C [address] [place] [address], [address], [facility] 06/30/2024 12:24:55 5 total replacement of left knee joint completed Blanquita Saenz [facility] 04/30/2024 08:22:45 5 PCM Visit completed Mia Mccray [facility] 04/07/2024 15:29:36 4 PT Evaluation - Low Complexity completed ROBERT GAITAN, PT, DPT [address] [place], [address], [facility] 03/31/2024 14:16:18 4 PT Therapeutic Exercise completed ROBERT GAITAN, PT, DPT [address] [place], [address], [facility] 03/31/2024 14:17:47 4 Aspiration Joint/Bursa, Major completed DULCE MINAYA PA-C [address] [place], [address], [facility] 01/29/2024 12:37:10 4 arthroscopy of knee completed Liz Gary [facility] 01/29/2024 11:11:26 Orthopedic Surgery completed Liz Gary [facility] 01/29/2024 11:13:06 Imaging Results None recorded. Procedure Notes None recorded. Medical Equipment None Reported. Allergies Allergen ID Allergen Name Allergen Category Reaction Reaction Severity Criticality Documentation Date Start Date Code Code System Note Provider Name and Address Organization Details Recorded Time 051129 Product containin g penicilli n (product) medicatio n Not available Not available Not available 01/29/2024 89763 8001 SNOMED HAROLDO ASENCIO MD [address] [place], [address] , [facility] 5 14:20:36 592131 acetamino phen / oxycodone medicatio n Not available Not available Not available 01/29/2024 54684 3 RxNorm Liz Gary [facility] 4 11:09:45 Medications Name Sig Start Date [...] height Body mass index (BMI) Body weight Provider Name and Address Organization Details Last Updated DateTime 07/07/2024 175.26 cm 32.5 kg/m2 52767.32 g Checo Caballero [facility] 07/07/2024 14:42:54 Social History Question Answer Notes LastModified by Organizat ion Details LastModified Time Tobacco Smoking Status Never [facility] 08:22:33 What Is Your Level Of Alcohol Consumption? None [email or web address] Information not available 04/30/2024 What Was The Date Of Your Most Recent Tobacco Screening? 06/02/2024 [email or web address] Information not available 06/02/2024 Do You Use Any Illicit Or Recreational Drugs? No [email or web address] Information not available 04/30/2024 Has Tobacco Cessation Counseling Been Provided? No [email or web address] Information not available 04/30/2024 Do You Or Have You Ever Used Any Other Forms Of Tobacco Or Nicotine? No [email or web address] Information not available 04/30/2024 Sex: Male Functional Status None recorded. Mental Status None recorded. Family History Nothing Reported. Medical History Condition Response Coronary Artery Disease N Other N Gout N Kidney Stones N Hyperthyroidism N Blood Transfusion N Emphysema N Head Trauma/Injury N COPD N Depression N Pneumonia N Venereal Disease N Seasonal Allergies N Anxiety Disorder N Muscle, Joint, or Bone Problems N Arthritis Y Previous injury to face N Blood Clot N Cancer N Stroke N Leg or Foot Ulcers N Neck Injury N Neurologic Disorder N Rheumatoid Arthritis N [...] Anxiety/Depression N Thyroid Disease N Hernia N Glaucoma N Hypothyroidism N Lung Disease N Nasal or Sinus Problems N Pacemaker [...] N Immune System Disorder N Heart Attack (PR) N Mental Illness N Neurological Problems N Psychiatric Illness N Diabetes N Seizures/Epilepsy N Hyperlipidemia N Hepatitis B N Rubella N Epilepsy/Seizures N Reflux/GERD Y Sleep Apnea N Heart Disease N Hypertension Y Osteoporosis N Past Encounters Encounter ID Performer Location Encounter Start Date Encounter Closed Date Diagnosis/Indication Diagnosis SNOMED-CT Code Diagnosis ICD10 Code Diagnosis Note [id number] SPARKLE MCFARLAND PA-C [facility] [address] [place] [address] 06/30/2024 11:18:58 06/30/2024 13:13:19 History of left total knee replacement [id number] 552822 Z96.652 Assessment : LTKA 04/10/24 pinsite infection Reviewed case and plan with Dr. Ángel keller. Performed a small superficia l laceration over the pin site to allow for drainage of fluid accumulati on. Able to remove small vicryl knot. Will plan for daily wound changes, clean with chlrohexad ine wash, antibiotic s called in for 10 days, follow up in 1 week, repeat tib fib radiograph s [id number] SPARKLE MCFARLAND PA-C [facility] [address] [place] [address] 07/07/2024 14:24:58 07/09/2024 04:18:08 Stress fracture of left tibia [id number] 0322040 M84.362A Out of extreme precaution and since he is still having more symptoms and pain with ambulation in his tibia surroundin g the pin hole sites, I would like to put him in tall walking boot along with ordering a CT scan to investigat e further.In regards to his knee, radiograph s have remained stable, motion is great, occasional pain with increased activity/s welling, as to be expected, from that regard he is doing very well and we discussed this will continue to improve over time. follow up after CT scan with Dr. Li History of left total knee replacement [id number] 679017 Z96.652 Health Concerns Section Related Observation LastModified by Organization Detai ls LastModified Time None Recorded Concern Status LastModified by Organization Details LastModified Time None Recorded Payers Encounter Date Sequence Insurance Name Policy Number Policy Denis Covered Member ID Denis Member ID Guarantor Name 07/07/2024 1 [facility] [place]AL[place] HER[place] OF [place] BLUE ACCESS (PPO) [id number] Soco Johnson [id number] [employer] Johnson Notes Date Note Type Note Provider Name and Address Organization Details Recorded Time 07/07/2024 text/html 07/07/24Patient is {{ 13#}} weeks s/p {{L* R B}} TKA on 04/10/24.Pain is {{completely better improving w orse same#}}Ariana jara taking {{no <3 3-4 >4}} doses per day of narcotic, Tramadol 50mg.Ambulating with {{wheelchair walke r cane no assistive device*}}PT: {{[facility] home health outpatient* HEP}} [facility] in [place], [place]. Denies fevers, chills, or wound drainage.They {{do* do not}} request a refill of pain medicine.Patient returns for incision check. 06/30/24Patient is {{ 11.5#}} weeks s/p {{L* R B}} TKA on 04/10/24.Pain is {{completely better improving w orse*}}Currently taking {{no <3* 3-4 >4}} doses per day of narcotic, Tramadol 50mg.Ambulating with {{wheelchair walke r cane no assistive device*}}PT: {{[facility] home health outpatient* HEP}} [facility] in [place], [place]. Denies fevers, chills, or wound drainage.They {{do* do not}} request a refill of pain medicine.Patient returns for incision check. 06/02/24Patient is {{ 7.5#}} weeks s/p {{L* R B}} TKA. s/p 04/10/24.Pain is {{completely better improving w orse*}} left lower leg swelling and redness.Currently taking {{no <3 3-4* >4}} doses per day of narcotic, Tramadol 50mg.Ambulating with {{wheelchair walke r cane* no assistive device}}PT: {{[facility] home health outpatient* HEP}} [facility] in [place], [place]. Denies fevers, chills, or wound drainage.They {{do do not*}} request a refill of pain medicine. 4-14-77Pukmbbx is {{ 6#}} weeks s/p {{L* R B}} TKA. s/p 04/10/24.Pain is {{completely better improving w orse same#}}Curren tly taking {{no <3 3-4 >4 4#} } doses per day of narcotic, Hydrocodone 5/325mg.Ambulating with {{wheelchair walke r cane* no assistive device}}PT: {{[facility] home health outpatient* HEP}} [facility] in [place], [place]. Denies fevers, chills, or wound drainage.They {{do do not*}} request a refill of pain medicine. 4-84-18Iflmmgk is {{ 3#}} weeks s/p {{L* R B}} TKA. s/p 04/10/24.Pain is {{completely better improving* worse}}Currently taking {{no <3 3-4 >4 (q 4 hours) 6 #}} doses per day of narcotic, Hydrocodone 7.5/325mg.Ambulati ng with {{wheelchair walke r cane* no assistive device}}PT: [facility] outpatient [facility]}} starts on Saturday for Outpatient PT at [facility] in [place], [place]. Denies fevers, chills, or wound drainage.They {{do* do not}} request a refill of pain medicine. SPARKLE MCFARLAND PA-C [address] [place], [address], [facility] 07/08/2024 08:32:17
[2024-07-19 20:42] VITALS: BP 173/102; PULSE 88; RESP 18; TEMP 36.6; O2SAT 100; BMI 31.7
--- OUTSIDE RECORDS SUMMARY | 2024-07-19 20:42 | XMS_ITS | Continuity of Care Document ---
Author Organization [facility] [place] [facility] Address [address] [place] [address] Care Team Providers Care Librarian Special Collections Name Role Phone JAMES PEDERSON Orthopedic Surgeon Assessment No assessment recorded. Plan of Treatment Reminders Order Date Submit Date Provider Last Modified By Organization Details Last Modified Time Details Appointments RECHEC K 2024 01:00P M JAMES PEDERSON MD Not available Not available Not available Lab None record ed. Referral None record ed. Procedures None record ed. Surgeries None record ed. Imaging None record ed. Medication Orders Bactri m DS 800 mg-160 mg tablet 2024 025 [facility] 591, [address], [address], 06/30/2024 12:03:46 Patient TargetsNo targets recorded. Patient InstructionsNo instructions recorded. Reason for Referral None Reported. Results Created Date Observation Date Name Description Value Unit Range Abnormal Flag Note LastModifiedBy Organization Detail LastModifiedTime 06/03/19 25 06/02/2024 XR, tibia + fibul a [facility] [place] [address] [place] [id number] Patiyinka t Name: SOCO alberto : 967 Pat[address] alberto 87 Orderi ng Provid er: SPARKLE [...] Khloe emmanuel MD on 06/03/19 2:57 PM [email or web address] [facility] [address] , [place], [address], 06/05/2024 13:28:12 06/03/1906/02/2024 XR, knee, [facility] [address] [place], [place] [address] [phone] Patiyinka t Name: SOCO alberto : [address] Orderi ng Provid er: SPARKLE MCFARLAND EXAM DATE: 2024 EXAM: XR LT KNEE 3 VIEWS COMPAR CHELSEY: 025 HISTOR Y: Follow -up of prior surger rick TISHA GS: Again seen is a left knee [...] Khloe emmanuel MD on 06/03/19 3:39 PM [facility] [place] [address] , [place], [address], 06/05/2024 13:28:12 07/08/1907/07/2024 XR, tibia + fibul a [facility] [address] [place], [place] [address] [phone] Rodrigue alberto Name: SOCO alberto : [address] 87 Orderi ng Provid er: [facility] EXAM DATE: 2024 EXAM: XR LT TIB/FI [...] emmanuel MD on 07/08/19 2:55 PM INTERFACE [facility] [address] , [place], [address], 07/07/2024 15:00:14 07/08/19 25 07/07/2024 XR, joint , multi ple, 1 view [facility] [address] [place] [address] Rodrigue alberto Name: SOCO alberto : [address] Orderi ng Provid er: [facility] EXAM DATE: 2024 EXAM: XR LONG LEG [...] Khloe emmanuel MD on 07/08/19 2:55 PM [email or web address] [facility] [place] [address] , [place], [address], 07/10/2024 12:43:09 07/15/1907/14/2024 CT, lower leg, w/o contr [facility] [address] [place] [address] [phone] Patiyinka t Name: SOCO Keller Patiyinka alberto : [phone] [...] Khloe emmanuel MD on 025 4:36 PM [email or web address] [facility] [address], [address], 07/15/2024 14:36:18 Result Notes None recorded. Problems Name Problem SNOMED Code Status Onset Date Resolution Date Notes Provider Name and Address Organization Details Recorded Time Pain of left knee joint 5218643656520 07 Active 2023 ROBERT GAITAN, PT, DPT [address] [place] [address], [address], [facility] 4 14:18:00 Osteoarthri tis of left knee joint 9948744138921 09 Active 2023 ROBERT GAITAN, PT, DPT [address] [place] [address], [address], [facility] 4 14:18:01 Problem Notes None recorded. Procedures Surgical History Date Name Laterality Status Provider Name and Address Organization Details Recorded Time 5 I&D Hematoma, Seroma or Fluid Collection completed SPARKLE MCFARLAND PA-C [address] [place] [address], [address], [facility] 06/30/2024 12:24:55 5 total replacement of left knee joint completed Blanquita Saenz [facility] 04/30/2024 08:22:45 5 PCM Visit completed Mia Mccray [facility] 04/07/2024 15:29:36 4 PT Evaluation - Low Complexity completed ROBERT GAITAN, PT, DPT [address] [place], [address], [facility] 03/31/2024 14:16:18 4 PT Therapeutic Exercise completed ROBERT GAITAN, PT, DPT [address] [place], [address], [facility] 03/31/2024 14:17:47 4 Aspiration Joint/Bursa, Major completed DULCE MINAYA PA-C [address] [place], [place], [address] [place] [address], [facility] 01/29/2024 12:37:10 4 arthroscopy of knee completed Liz Gary [facility] 01/29/2024 11:11:26 Orthopedic Surgery completed Liz Gary [facility] 01/29/2024 11:13:06 Imaging Results None recorded. Procedure Notes None recorded. Medical Equipment None Reported. Allergies Allergen ID Allergen Name Allergen Category Reaction Reaction Severity Criticality Documentation Date Start Date Code Code System Note Provider Name and Address Organization Details Recorded Time 296091 Product containin g penicilli n (product) medicatio n Not available Not available Not available 01/29/2024 09382 8001 SNOMED HAROLDO ASENCIO MD [address] [place], [address] , [facility] 5 14:20:36 900504 acetamino phen / oxycodone medicatio n Not available Not available Not available 01/29/2024 90297 3 RxNorm Liz Gary [facility] 4 11:09:45 Medications Name Sig Start [...] and Address Organization Details Last Updated DateTime 06/30/2024 175.26 cm 32.5 kg/m2 76435.32 g Checo [facility] 06/30/2024 11:27:20 Social History Question Answer Notes LastModified by Organizat ion Details LastModified Time Tobacco Smoking Status Never Smoker [facility] 04/30/2024 08:22:33 What Is Your Level Of Alcohol Consumption? None [email or web address] Information not available 04/30/2024 What Was The Date Of Your Most Recent Tobacco Screening? 06/02/2024 [email or web address] Information not available 06/02/2024 Do You Use Any Illicit Or Recreational Drugs? No [email or web address] Information not available 04/30/2024 Has Tobacco Cessation Counseling Been Provided? No [email or web address] Information not available 04/30/2024 Do You Or Have You Ever Used Any Other Forms Of Tobacco Or Nicotine? No [email or web address] Information not available 04/30/2024 Sex: Male Functional [...] N Immune System Disorder N Heart Attack (SD) N Mental Illness N Neurological Problems N Psychiatric Illness N Diabetes N Seizures/Epilepsy N Hyperlipidemia N Hepatitis B N Rubella N Epilepsy/Seizures N Reflux/GERD Y Sleep Apnea N Heart Disease N Hypertension Y Osteoporosis N Past Encounters Encounter ID Performer Location Encounter Start Date Encounter Closed Date Diagnosis/Indication Diagnosis SNOMED-CT Code Diagnosis ICD10 Code Diagnosis Note [id number] SPARKLE MCFARLAND PA-C [facility] [address] [place] [address] 06/02/2024 13:39:21 06/02/2024 15:11:13 History of left total knee replacement [id number] 839900 Z96.652 Assessment : LTKA 7 weeks, pinsite infection Continue cephalexin , chrolexhad ine washes, keep dry and clean, scar mobilizati onFollow up in 1 month or sooner if worsening symptoms. I think most will resolve with time and as the suture continues to break down. Radiograph s remain reassuring no fracture or stress fracture at pin sites. [id number] SPARKLE MCFARLAND PA-C [facility] [address] [place] [address] 06/30/2024 11:18:58 06/30/2024 13:13:19 History of left total knee replacement 3880087917 333134 Z96.652 Assessment : LTKA 04/10/24 pinsite infection [...] 1 week, repeat tib fib radiograph s Health Concerns Section Related Observation LastModified by Organization Detai ls LastModified Time None Recorded Concern Status LastModified by Organization Details LastModified Time None Recorded Payers Encounter Date Sequence Insurance Name Policy Number Policy Denis Covered Member ID Denis Member ID Guarantor Name 06/30/2024 1 [id number] CHAL[place] HERNANDE[place] OF [place] BLUE ACCESS (PPO) [id number] Natalia Johnson [id number] Soco Johnson Notes Date Note Type Note Provider Name and Address Organization Details Recorded Time 06/30/2024 text/html 06/30/24Patient is {{ 11.5#}} weeks s/p {{L* R B}} TKA on 04/10/24.Pain is {{completely better improving w orse*}}Currently taking {{no <3* 3-4 >4}} doses per day of narcotic, Tramadol 50mg.Ambulating with {{wheelchair walke r cane no assistive device*}}PT: {{[facility] home health outpatient* HEP}} [facility] in [place], [place]. Denies fevers, chills, or wound drainage.They [...] {{wheelchair walke r cane* no assistive device}}PT: {{[facility] home health outpatient* HEP}} [facility] in [place], [place]. Denies fevers, chills, or wound drainage.They {{do do not*}} request a refill of pain medicine. 2-79-64Hkacgyl is {{ 6#}} weeks s/p {{L* R B}} TKA. s/p 04/10/24.Pain is {{completely better improving w orse same#}}Ariana tly taking {{no <3 3-4 >4 4#} } doses per day of narcotic, Hydrocodone 5/325mg.Ambulating with {{wheelchair walke r cane* no assistive device}}PT: [facility] outpatient[facility]}} [facility] in [place], [place]. Denies fevers, chills, or wound drainage.They {{do do not*}} request a refill of pain medicine. 6-63-37Amkyvjr is {{ 3#}} weeks s/p {{L* R B}} TKA. s/p 04/10/24.Pain is {{completely better improving* worse}}Currently taking {{no <3 3-4 >4 (q 4 hours) 6 #}} doses per day of narcotic, Hydrocodone 7.5/325mg.Ambulati ng with {{wheelchair walke r cane* no assistive device}}PT: {{[facility]* outpatient [facility]}} starts on Saturday for Outpatient PT at [facility] in [place], [place]. Denies fevers, chills, or wound drainage.They {{do* do not}} request a refill of pain medicine. SPARKLE MCFARLAND PA-C [facility] [place], [address], [facility] 06/30/2024 12:25:22
--- OUTSIDE RECORDS SUMMARY | 2024-07-19 20:42 | XMS_ITS | Continuity of Care Document ---
Author Organization [facility] Address [address] [place] [address] Care Team Providers Care Chef Instructor Name Role Phone JAMES PEDERSON Orthopedic Surgeon [...] ed. Imaging None record ed. Medication Orders None record ed. Patient TargetsNo targets recorded. Patient InstructionsNo instructions recorded. Reason for Referral None Reported. Results Created Date Observation Date Name Description Value Unit Range Abnormal Flag Note LastModifiedBy Organization Detail LastModifiedTime 04/30/19 25 04/30/2024 XR, knee, 3 view Olga rodríguez [facility] [address] [place] [address] [address] [place] [address] Patien t Name: SOCO Steven Patien t : 967 Patien t 87 Orderi ng Provid er: DULCE MINAYA EXAM DATE: 2024 EXAM: XR LT KNEE 3 VIEWS COMPAR CHELSEY: 2023 HISTOR Y: Follow -up of prior surger rick GILES GS: There has been interv al placem ent of a left knee total arthro plasty . [...] Signed By: Khloe emmanuel MD on 025 8:[address] Radiology [address] , [place], [address], 04/30/2024 08:52:47 05/21/19 25 05/21/2024 XR, knee, 3 view Olga rodríguez [address] [place] [address] [phone] Patien t Name: SOCO alberto : [address] 87 Orderi ng Provid er: DULCE MINAYA EXAM DATE: 2024 EXAM: XR LT KNEE 3 VIEWS COMPAR CHELSEY: 025 HISTOR Y: Follow -up of prior surger rick GILES GS: Again seen is a left knee total arthro plasty . There is no eviden ce of loosen ing. No fractu re is identi fied. Contra latera l knee: There are mild degene rative change s. IMPRES URBANO: 1. There is a left total knee arthro plasty in place withou t eviden ce of loosen ing. Interp reted By: Khleo emmanuel MD [facility] onical ly Signed By: Khloe emmanuel MD on 025 2:[address] Radiology [address] , [place], [address], 05/21/2024 15:05:55 06/03/19 25 06/02/2024 XR, tibia + fibul a [facility] [place] [address] [place] [address] [phone] Patiyinka t Name: SOCO alberto : 7 [address] 87 Orderi ng Provid er: [...] Khloe emmanuel MD on 06/03/19 2:[address] [facility] Radiology [facility] [address] , [place], [address], 06/05/2024 13:28:12 06/03/19 25 06/02/2024 XR, knee, 3 view [facility] [address] [place] [address] Patien t Name: SOCO Steven Patiyinka alberto : 967 Patien t 87 [...] Khloe emmanuel MD on 06/03/19 3:[address] [facility] Radiology [place] [address] , [place], [address], 06/05/2024 13:28:12 07/08/19 25 07/07/2024 XR, tibia + fibul a [facility] [address] [place] [phone] Rodrigue alberto Name: SOCO alberto : 7 Rodrigue alberto 87 Orderi ng Provid er: [facility] EXAM DATE: 2024 EXAM: XR LT TIB/FI [...] on 07/08/19 2:55 PM INTER[address] [facility] Radiology [place] [address], [place], [address], 07/07/2024 15:00:14 07/08/19 25 07/07/2024 XR, joint , multi ple, 1 view [facility] [address] [place] [place] [address] [phone] Rodrigue alberto Name: SOCO alberto : 967 Rodrigue alberto 87 Orderi ng Provid er: [facility] EXAM DATE: 2024 EXAM: XR LONG LEG [...] Khloe emmanuel MD on 07/08/19 2:55 PM [email or web address] [facility] Radiology [place] [address] , [place], [address], 07/10/2024 12:43:09 07/15/1907/14/2024 CT, lower leg, w/o contr ast [address] [address] Patien t Name: SOCO Steven Patien t : 967 Pat[address] t 87 Orderi ng [...] and fibula , and comput er genera yoshi lezama l, sagitt al, and reform atted axial sequen meera were genera yoshi from the source images . FINDIN GS: [...] Khloe emmanuel MD on 025 4:36 PM [email or web address] [facility] Radiology [facility] [address] [place] [address], [address], 07/15/2024 14:36:18 Result Notes None recorded. Problems Name Problem SNOMED Code Status Onset Date Resolution Date Notes Provider Name and Address Organization Details Recorded Time Pain of left knee joint 3267244071960 07 Active 2023 ROBERT GAITAN, PT, DPT [address] [place], [address], [facility] 4 14:18:00 Osteoarthri tis of left knee joint 0041293539682 09 Active 2023 ROBERT GAITAN, PT, DPT [address] [place], [address], [facility] 4 14:18:01 Problem Notes None recorded. Procedures Surgical History Date Name Laterality Status Provider Name and Address Organization Details Recorded Time 5 I&D Hematoma, Seroma or Fluid Collection completed SPARKLE MCFARLAND PA-C [address] [place], [address], [facility] 06/30/2024 12:24:55 5 total replacement of left knee joint completed Blanquita Saenz [facility] 04/30/2024 08:22:45 5 PCM Visit completed Miatammy Mccray [facility] 04/07/2024 15:29:36 4 PT Evaluation - Low Complexity completed ROBERT GAITAN, PT, DPT [address] [place], [address], [facility] 03/31/2024 14:16:18 4 PT Therapeutic Exercise completed ROBERT GAITAN, PT, DPT [address] [place], [address], [facility] 03/31/2024 14:17:47 4 Aspiration Joint/Bursa, Major completed DULCE MINAYA PA-C [address] [place], [address], [facility] 01/29/2024 12:37:10 4 arthroscopy of knee completed Liz Gary [facility] 01/29/2024 11:11:26 Orthopedic Surgery completed Liz Gary [facility] 01/29/2024 11:13:06 Imaging Results None recorded. Procedure Notes None recorded. Medical Equipment None Reported. Allergies Allergen ID Allergen Name Allergen Category Reaction Reaction Severity Criticality Documentation Date Start Date Code Code System Note Provider Name and Address Organization Details Recorded Time 981674 Product containin g penicilli n (product) medicatio n Not available Not available Not available 01/29/2024 36397 8001 SNOMED HAROLDO ASENCIO MD [address] [place], [address], [facility] 5 14:20:36 182976 acetamino phen / oxycodone medicatio n Not available Not available Not available 01/29/2024 80958 3 RxNorm Liz Gary [facility] 4 11:09:45 Medications Name Sig Start Date [...] and Address Organization Details Last Updated DateTime 05/21/2024 175.26 cm 32.5 kg/m2 31586.32 g 5 Blanquita Saenz [facility] 05/21/2024 14:39:31 Social History Question Answer Notes LastModified by Organizat ion Details LastModified Time Tobacco Smoking Status Never Smoker Blanquita Saenz [facility] 04/30/2024 08:22:33 What Is Your Level Of Alcohol Consumption? None Information not available 04/30/2024 What Was The Date Of Your Most Recent Tobacco Screening? 06/02/2024 [email or web address] Information not available 06/02/2024 Do You Use Any Illicit Or Recreational Drugs? No [email or web address] Information not available 04/30/2024 Has Tobacco Cessation Counseling Been Provided? No [email or web address] Information not available 04/30/2024 Do You Or Have You Ever Used Any Other Forms Of Tobacco Or Nicotine? No [email or web address] Information not available 04/30/2024 Sex: Male Functional [...] N Ulcers N Other Skin Condition N Rheumatic Fever N Rhinitis N Bleeding Disorder N Tuberculosis N Genetic Disorder N AIDS/HIV N Asthma N Nasal polyps Y Peripheral Vascular Disease N GERD/Reflux Y Hepatitis N Included as Review of Systems N Neuropathy N Pulmonary Embolism N Chicken Pox N Anxiety/Depression N Thyroid Disease N Hernia N Hypothyroidism N Lung Disease N Glaucoma N Nasal or Sinus Problems [...] N Immune System Disorder N Heart Attack (PA) N Mental Illness N Psychiatric Illness N Neurological Problems N Diabetes N Seizures/Epilepsy N Hyperlipidemia N Hepatitis B N Rubella N Epilepsy/Seizures N Reflux/GERD Y Sleep Apnea N Heart Disease N Hypertension Y Osteoporosis N Past Encounters Encounter ID Performer Location Encounter Start Date Encounter Closed Date Diagnosis/Indication Diagnosis SNOMED-CT Code Diagnosis ICD10 Code Diagnosis Note [id number] DULCE MINAYA PA-C [facility] [address] [place] [address] 04/30/2024 08:12:54 04/30/2024 08:52:39 History of total knee arthroplasty 4122708851 105 Z96.652 Hernán is now 3 weeks status post left TKA, doing well today. We have discussed to slowly wean down on his pain medication regimen going forward and which will help him control his bowel movements much better. He has utilized mag citrate recently which has helped slightly. Incision has healed nicely, okay to wet but do not submerge. He may discontinu e YOSHI hose. Range of motion is doing well today. He will transition outpatient physical therapy in [place] . Reviewed 3 weeks instructio ns, answered all questions and [...] massages and tissue mobilizati on. RTC in 3 weeks for routine 6 week post op follow up with radiograph s. [id number] DULCE MINAYA PA-C [facility] [address] [place] [address] 05/21/2024 14:25:41 05/21/2024 15:04:17 History of total knee arthroplasty 3389105919 105 Z96.652 Hernán is now 6 weeks [...] on. RTC in 6-8 weeks with LLXR. Health Concerns Section Related Observation LastModified by Organization Detai ls LastModified Time None Recorded Concern Status LastModified by Organization Details LastModified Time None Recorded Payers Encounter Date Sequence Insurance Name Policy Number Policy Denis Covered Member ID Denis Member ID Guarantor Name 05/21/2024 1 [place] [id number] [employer] [id number] [employer] Notes Date Note Type Note Provider Name and Address Organization Details Recorded Time 05/21/2024 text/html [id number] i s {{ 6#}} weeks s/p {{L* R B}} TKA. s/p 04/10/24.Pain is {{completely better improving w orse same#}}Ariana raoy taking {{no <3 3-4 >4 4#} } doses per day of narcotic, Hydrocodone 5/325mg.Ambulating with {{wheelchair walke r cane* no assistive device}}PT: {{SNF home health outpatient* HEP}} [facility] in [place], [place]. Denies fevers, chills, or wound drainage.They {{do do not*}} request a refill of pain medicine. DULCE MINAYA PA-C [address] [place], [address], [facility] 05/21/2024 15:16:48
--- NOTE | 2024-07-19 21:06 | ED_ITS ---
Discharge Plan Disposition Patient Disposition: Home, Self-Care Condition: Good Prescriptions Prescriptions: No Action venlafaxine 75 mg capsule,extended release 24hr 75 mg PO DAILY Patient Comments: TAKE 1 CAPSULE BY MOUTH ONCE DAILY, DO NOT CRUSH OR CHEW enalapril maleate 20 mg tablet 40 mg PO DAILY Patient Comments: TAKE 2 TABLETS BY MOUTH ONCE DAILY amlodipine 5 mg tablet 5 mg PO DAILY Patient Comments: TAKE 1 TABLET BY MOUTH ONCE DAILY lansoprazole 30 mg capsule,delayed release(DR/EC) 30 mg PO DAILY levofloxacin 750 mg tablet 750 mg PO DAILY 10 Days Qty: 10 0RF Referrals Follow up/Referrals: Leslie Hanna APRN [Primary Care Provider] - See instructions Activity Restrictions/Add. Instructions Additional Instructions/Restrictions: You were evaluated in the emergency department today. As we discussed, it is unclear exactly what caused your symptoms at this time, but your symptoms could be concerning for possible TIA/mini stroke. It is very important that you follow-up closely with your primary care provider over the next 24 to 48 hours. Return to the emergency department right away for new or worsening symptoms. Clinical Impressions Clinical Impression: Transient neurological symptoms, HBP (high blood pressure), Hyponatremia Instructions Patient Instructions: DI for Transient Ischemic Attack, DI for Headache Print Language Print Language: Nepali Discharge ED Provider: Lety Vargas General Adult HPI <Sujatha Ruiz APRN - Last Filed: 07/19/24 22:00> General Chief complaint: Headache Stated complaint: headache,blood pressure is high Time Seen by Provider: 07/19/24 20:58 Mode of Arrival: Ambulatory Source of Information: Patient and Spouse Description of Symptoms (Recalled from ER Triage Doc. by RN): Patient reports a bad headache, high blood pressure, and confusion lasting around 2-3 minutes. His states he forgot their address, and forgot where he was at and couldnt remember how to get home. History of Present Illness HPI narrative: Patient is a 59-year-old male PMHx hypertension and obesity who presents to the ED after having an episode earlier today consisting of a 7 out of 10 headache & confusion that lasted approximately 4 minutes. Patient states he was driving with his spouse in the vehicle when he suddenly saw a few spots became confused as to where he was, his states this is the route they drive frequently. Patient then stated that they were going to the wrong address which was his correct home address. Related Data Home Medications ?Medication ?Instructions ?Recorded ?Confirmed amlodipine 5 mg tablet 5 mg PO DAILY 03/12/23 03/12/23 enalapril maleate 20 mg tablet 40 mg PO DAILY 03/12/23 03/12/23 lansoprazole 30 mg capsule,delayed 30 mg PO DAILY 03/12/23 03/12/23 release venlafaxine 75 mg capsule,extended 75 mg PO DAILY 03/12/23 03/12/23 release 24 hr Previous Rx's ?Medication ?Instructions ?Recorded levofloxacin 750 mg tablet 750 mg PO DAILY 10 days #10 tabs 03/12/23 Allergies Allergy/AdvReac Type Severity Reaction Status Date / Time Penicillins Allergy Verified 08/31/21 16:28 PFS <Sujatha Ruiz APRN - Last Filed: 07/19/24 22:00> PFS Disclaimer: The information contained in this section may have been updated after the patient was seen, as this information can be updated by other users. Medical History History of gastroesophageal reflux (GERD) Hypertension Social History Smoking Status: Never smoker alcohol intake: never current occupational status: other Travel in the last 8 weeks: None Have you lived/traveled outside [place] in past 30 days?: No Contact w/someone who lives/traveled outside US past 30 days?: No Exposure to someone with infectious disease in past 14 days?: No Do you have a fever (greater than 100.4 F or 38 C)?: No Have you tested positive for COVID-19: No Exposed to someone with COVID-19 in past 14 days?: No Do you have a sore throat?: No Do you have a cough?: No Do you have any weakness?: No Do you have any diarrhea?: No Are you experiencing any unusual bleeding?: No Do you have any muscle aches/pain?: No Do you have any abdominal pain?: No Are you experiencing loss of taste or smell?: No Other Medical History Have you received the Flu Vaccine for this season: Yes Have you received the Pneumonia Vaccine: No <Sujatha Ruiz APRN - Last Filed: 07/19/24 22:00> ROS Obtained: Yes Systems reviewed as appropriate & no additional complaints except as documented Physical Exam <Sjuatha Ruiz APRN - Last Filed: 07/19/24 22:00> General General appearance: alert and in no apparent distress Head Head exam: atraumatic and normocephalic Eye Eye exam: Present normal appearance and PERRL ENT ENT exam: Present normal exam Neck Neck exam: Present normal inspection Chest Chest inspection: Present normal inspection and symmetric chest wall rise; Absent tenderness Respiratory Respiratory exam: Present normal lung sounds bilaterally Cardiovascular Cardiovascular exam: Present regular rate Abdominal Exam Abdominal exam: Present soft and normal bowel sounds; Absent tenderness Extremities Exam Extremities exam: Present normal inspection and full ROM Back Exam Back exam: Present normal inspection and full ROM Neurological Exam Neurological exam: Present alert and oriented X3 Psychiatric Psychiatric exam: Present normal affect and normal mood Skin Skin exam: Present warm and dry Medical Decision Making <Sujatha Ruiz APRN - Last Filed: 07/19/24 22:00> Medical Records Screening: Per USPSTF and CDC recommendations, given the prevalence of disease in our region, it is our hospital?s policy to screen for HIV and viral Hepatitis for all patients aged 18 and over and those with ongoing risk factors. Jimmy Inquiry Pt receiving controlled substance: No Jimmy was queried for this patient: No Vital Signs: 07/19/24 20:42 07/19/24 22:57 Temperature 97.9 F 97.9 F Temperature Source Oral Pulse Rate 88 Pulse Rate [Right Radial] 88 Respiratory Rate 18 16 Blood Pressure 143/98 H Blood Pressure [Right Arm] 173/102 H Blood Pressure Mean [Right Arm] 125 Blood Pressure Source [Right Arm] Automatic Cuff Blood Pressure Position [Right Arm] Supine 02 Sat by Pulse Oximetry 100 Oxygen Delivery Method Room Air Lab Data Lab Results 07/19/24 21:00: WBC 7.8, RBC 4.15 L, Hgb 12.1 L, Hct 35.6 L, MCV 85.8, MCH 29.2, MCHC 34.0, RDW 13.2, Plt Count 416, MPV 9.1, Neut % (Auto) 73.7, Lymph % (Auto) 16.1, Isabella % (Auto) 8.0, Eos % (Auto) 1.3, Baso % (Auto) 0.6, Neut # (Auto) 5.8, Lymph # (Auto) 1.3, Isabella # (Auto) 0.6, Eos # (Auto) 0.1, Baso # (Auto) 0.1, PT 10.3, INR 0.91, APTT 31.1 H, Sodium 128 L, Potassium 3.5, Chloride 91 L, Carbon Dioxide 29, Anion Gap 11.5, BUN 6 L, Creatinine 0.70, Estimated Creat Clear 159, Estimated GFR 116, Est GFR ( Amer) 140, Glucose 99, Calcium 9.0, Total Bilirubin 0.1 L, AST 31, ALT 36, Alkaline Phosphatase 96, Troponin I < 0.01, Total Protein 7.3, Albumin 4.4, Globulin 2.9, Albumin/Globulin Ratio 1.5, Triglycerides 104, Cholesterol 163, LDL Cholesterol Direct 96.55 L, VLDL Cholesterol 21, HDL Cholesterol 43, Cholesterol/HDL Ratio 3.8 H, Plasma/Serum Alcohol < 10 07/19/24 21:14: POC Glucose 90 07/19/24 21:36: Urine Color Yellow, Urine Appearance Clear, Urine pH 7.0, Ur Specific [place] <= 1.005, Urine Protein Negative, Urine Glucose (UA) Negative, Urine Ketones Negative, Urine Blood Negative, Urine Nitrate Negative, Urine Bilirubin Negative, Urine Urobilinogen 0.2, Ur Leukocyte Esterase Negative, Urine RBC None, Urine WBC None, Ur Squamous Epith Cells None, Urine Bacteria None, Urine Opiates Screen Negative, Urine Methadone Screen Negative, Ur Barbituates Screen Negative, Ur Phencyclidine Scrn Negative, Ur Amphetamines Screen Negative, U Benzodiazepines Scrn Negative, Urine Cocaine Screen Negative, U Marijuana (THC) Screen Negative 07/19/24 21:00 07/19/24 21:00 Orders (Tests/Meds): ED MEDICATIONS Discontinued Medications Generic Name Dose Route Start Last Admin Trade Name Freq PRN Reason Stop Dose Admin Acetaminophen 1,000 mg 07/19/24 21:07 07/19/24 21:12 Acetaminophen 1,000mg/100ml Vial IV 07/19/24 21:08 1,000 mg ONCE ONE Administration Iopamidol 80 ml 07/19/24 21:38 07/19/24 21:39 Iopamidol-370 (76%);100ml Bottle IV 07/19/24 21:39 80 ml ONCE ONE Administration Sodium Chloride 10 ml 07/19/24 21:07 Sodium Chloride 0.9% 10ml Flush Syringe IV 08/18/24 21:06 NEEDED PRN Maintain IV Site Sodium Chloride 50 ml 07/19/24 21:38 07/19/24 21:39 0.9 % Sodium Chloride 50 Ml Vial IV 07/19/24 21:39 50 ml ONCE ONE Administration Sodium Chloride 10 ml 07/19/24 21:38 07/19/24 21:39 Sodium Chloride 0.9% 10ml Syr (Rad Only) IV 08/18/24 21:37 10 ml NEEDED PRN Administration Maintain IV Site ORDERS Category Date Time Status CT angio head Stat Cat Scan 07/19/24 21:[address] angio neck Stat Cat Scan 07/19/24 21:[address] head/brain wo con Stat Cat Scan 07/19/24 21:07 Completed XR chest portable Stat Exams 07/19/24 21:07 Completed Activated Partial Thrombo Time Stat Lab 07/19/24 21:00 Completed Complete Blood Count Auto Diff Stat Lab 07/19/24 21:00 Completed Comprehensive Metabolic Panel Stat Lab 07/19/24 21:00 Completed Drug Screen,Urine Stat Lab 07/19/24 21:36 Completed Ethyl Alcohol Stat Lab 07/19/24 21:00 Completed Lipid Panel Stat Lab 07/19/24 21:00 Completed POC Glucose,Bedside Routine Lab 07/19/24 21:14 Completed Prothrombin Time INR Stat Lab 07/19/24 21:00 Completed Troponin I Stat Lab 07/19/24 21:00 Completed Urinalysis and Microscopic Stat Lab 07/19/24 21:36 Completed ECG Request Stat Y 07/19/24 21:07 Ordered Medical Decision Narrative: In summary, patient is a 59-year-old male PMHx hypertension and obesity who presents to the ED after having an episode earlier today consisting of a 7 out of 10 headache & confusion that lasted approximately 4 minutes. Patient states he was driving with his spouse in the vehicle when he suddenly saw a few spots became confused as to where he was, his states this is the route they drive frequently. Patient then stated that they were going to the wrong address which was his correct home address. Patient's spouse states that the episode completely resolved after approximately 4 minutes however she had to make an lathe puller he states he has never experienced anything like this in the past. Denies any family history of stroke. Denies any weakness or numbness. States he had a left knee replacement approximately 4 months ago, takes tramadol but did not take that today. Denies fever, chills, neck pain, chest pain, shortness of breath, abdominal pain, nausea, vomiting. Differential diagnosis includes CVA, TIA, electrolyte abnormality, infectious process, migraine, headache, complex headache, among others. Upon initial evaluation patient is alert, oriented and cooperative. He is hemodynamically stable. Neuroexam is normal. Discussed with patient and spouse that we will proceed with CT scans, labs and chest x-ray. CBC unremarkable for any leukocytosis, stable H&H. Sodium 128. Final read for the CT head, head CTA, neck CTA unremarkable for any acute findings. Care transferred to Dr. Vargas pending further workup. <Lety Vargas, DO - Last Filed: 07/20/24 00:00> Vital Signs: 07/19/24 20:42 07/19/24 22:57 Temperature 97.9 F 97.9 F Temperature Source Oral Pulse Rate 88 Pulse Rate [Right Radial] 88 Respiratory Rate 18 16 Blood Pressure 143/98 H Blood Pressure [Right Arm] 173/102 H Blood Pressure Mean [Right Arm] 125 Blood Pressure Source [Right Arm] Automatic Cuff Blood Pressure Position [Right Arm] Supine 02 Sat by Pulse Oximetry 100 Oxygen Delivery Method Room Air Lab Data Lab Results 07/19/24 21:00: WBC 7.8, RBC 4.15 L, Hgb 12.1 L, Hct 35.6 L, MCV 85.8, MCH 29.2, MCHC 34.0, RDW 13.2, Plt Count 416, MPV 9.1, Neut % (Auto) 73.7, Lymph % (Auto) 16.1, Isabella % (Auto) 8.0, Eos % (Auto) 1.3, Baso % (Auto) 0.6, Neut # (Auto) 5.8, Lymph # (Auto) 1.3, Isabella # (Auto) 0.6, Eos # (Auto) 0.1, Baso # (Auto) 0.1, PT 10.3, INR 0.91, APTT 31.1 H, Sodium 128 L, Potassium 3.5, Chloride 91 L, Carbon Dioxide 29, Anion Gap 11.5, BUN 6 L, Creatinine 0.70, Estimated Creat Clear 159, Estimated GFR 116, Est GFR ( Amer) 140, Glucose 99, Calcium 9.0, Total Bilirubin 0.1 L, AST 31, ALT 36, Alkaline Phosphatase 96, Troponin I < 0.01, Total Protein 7.3, Albumin 4.4, Globulin 2.9, Albumin/Globulin Ratio 1.5, Triglycerides 104, Cholesterol 163, LDL Cholesterol Direct 96.55 L, VLDL Cholesterol 21, HDL Cholesterol 43, Cholesterol/HDL Ratio 3.8 H, Plasma/Serum Alcohol < 10 07/19/24 21:14: POC Glucose 90 07/19/24 21:36: Urine Color Yellow, Urine Appearance Clear, Urine pH 7.0, Ur Specific [place] <= 1.005, Urine Protein Negative, Urine Glucose (UA) Negative, Urine Ketones Negative, Urine Blood Negative, Urine Nitrate Negative, Urine Bilirubin Negative, Urine Urobilinogen 0.2, Ur Leukocyte Esterase Negative, Urine RBC None, Urine WBC None, Ur Squamous Epith Cells None, Urine Bacteria None, Urine Opiates Screen Negative, Urine Methadone Screen Negative, Ur Barbituates Screen Negative, Ur Phencyclidine Scrn Negative, Ur Amphetamines Screen Negative, U Benzodiazepines Scrn Negative, Urine Cocaine Screen Negative, U Marijuana (THC) Screen Negative Orders (Tests/Meds): ED MEDICATIONS Discontinued Medications Generic Name Dose Route Start Last Admin Trade Name Freq PRN Reason Stop Dose Admin Acetaminophen 1,000 mg 07/19/24 21:07 07/19/24 21:12 Acetaminophen 1,000mg/100ml Vial IV 07/19/24 21:08 1,000 mg ONCE ONE Administration Iopamidol 80 ml 07/19/24 21:38 07/19/24 21:39 Iopamidol-370 (76%);100ml Bottle IV 07/19/24 21:39 80 ml ONCE ONE Administration Sodium Chloride 10 ml 07/19/24 21:07 Sodium Chloride 0.9% 10ml Flush Syringe IV 08/18/24 21:06 NEEDED PRN Maintain IV Site Sodium Chloride 50 ml 07/19/24 21:38 07/19/24 21:39 0.9 % Sodium Chloride 50 Ml Vial IV 07/19/24 21:39 50 ml ONCE ONE Administration Sodium Chloride 10 ml 07/19/24 21:38 07/19/24 21:39 Sodium Chloride 0.9% 10ml Syr (Rad Only) IV 08/18/24 21:37 10 ml NEEDED PRN Administration Maintain IV Site ORDERS Category Date Time Status CT angio head Stat Cat Scan 07/19/24 21:[address] angio neck Stat Cat Scan 07/19/24 21:[address] head/brain wo con Stat Cat Scan 07/19/24 21:07 Completed XR chest portable Stat Exams 07/19/24 21:07 Completed Activated Partial Thrombo Time Stat Lab 07/19/24 21:00 Completed Complete Blood Count Auto Diff Stat Lab 07/19/24 21:00 Completed Comprehensive Metabolic Panel Stat Lab 07/19/24 21:00 Completed Drug Screen,Urine Stat Lab 07/19/24 21:36 Completed Ethyl Alcohol Stat Lab 07/19/24 21:00 Completed Lipid Panel Stat Lab 07/19/24 21:00 Completed POC Glucose,Bedside Routine Lab 07/19/24 21:14 Completed Prothrombin Time INR Stat Lab 07/19/24 21:00 Completed Troponin I Stat Lab 07/19/24 21:00 Completed Urinalysis and Microscopic Stat Lab 07/19/24 21:36 Completed ECG Request Stat Y 07/19/24 21:07 Ordered Medical Decision Narrative: In summary, patient is a 59-year-old male PMHx hypertension and obesity who presents to the ED after having an episode earlier today consisting of a 7 out of 10 headache & confusion that lasted approximately 4 minutes. Patient states he was driving with his spouse in the vehicle when he suddenly saw a few spots became confused as to where he was, his states this is the route they drive frequently. Patient then stated that they were going to the wrong address which was his correct home address. Patient's spouse states that the episode completely resolved after approximately 4 minutes however she had to make an lathe puller he states he has never experienced anything like this in the past. Denies any family history of stroke. Denies any weakness or numbness. States he had a left knee replacement approximately 4 months ago, takes tramadol but did not take that today. Denies fever, chills, neck pain, chest pain, shortness of breath, abdominal pain, nausea, vomiting. Differential diagnosis includes CVA, TIA, electrolyte abnormality, infectious process, migraine, headache, complex headache, among others. Upon initial evaluation patient is alert, oriented and cooperative. He is hemodynamically stable. Neuroexam is normal. Discussed with patient and spouse that we will proceed with CT scans, labs and chest x-ray. CBC unremarkable for any leukocytosis, stable H&H. Sodium 128. Final read for the CT head, head CTA, neck CTA unremarkable for any acute findings. Care transferred to Dr. Vargas pending further workup. DO Sam: I was consulted by the GAMALIEL, and we discussed the complexity of the problems being addressed. I approved the treatment and management plan for this patient's care in the emergency department, thus performing a substantive portion of the medical decision making. On my assessment of the patient, he is lying comfortably in bed in no acute distress and is completely neurologically intact with no symptoms. Vitals are reassuring on cardiac telemetry. I independently interpreted CT scans prior to radiology read and noted no large vessel occlusion, no intracranial hemorrhage. Labs demonstrate mild hyponatremia, but he states he is always told his sodium is low. Workup overall is very reassuring. Ultimately, unclear exactly what caused his symptoms. He states that he thinks it is because he was outside in the heat for a long time today and also is exhausted because he is not been sleeping. He also notes that he was in his head thinking about his mom because its Easter and she always allowed this holiday. I advised him that it is possible it could be something like that, but also could be something more serious or life-threatening like TIA. I considered admission, however patient is agreeable to go home and follow-up very closely with his primary care provider this week for reassessment. He was given very strict return precautions should he develop any new or worsening symptoms. He was discharged after all questions were answered. Lety Vargas DO Critical Care <Sujatha Ruiz APRN - Last Filed: 07/19/24 22:00> Critical Care Time Critical Care Time: No
--- NOTE | 2024-07-19 21:07 | CT_ITS ---
PROCEDURE INFORMATION: Exam: CT Head Without Contrast Exam date and time: 07/19/2024 9:27 PM Age: 59 years old Clinical indication: Stroke-like symptoms; Altered mental status/memory loss; Additional info: Possible stroke TECHNIQUE: Imaging protocol: Computed tomography of the head without contrast. Radiation optimization: All CT scans at this facility use at least one of these dose optimization techniques: automated exposure control; mA and/or kV adjustment per patient size (includes targeted exams where dose is matched to clinical indication); or iterative reconstruction. Other technique: STROKE PROTOCOL was implemented. COMPARISON: No relevant prior studies available. FINDINGS: Brain: Normal. No hemorrhage. Unremarkable white matter. No mass effect. Cerebral ventricles: No ventriculomegaly. Paranasal sinuses: Visualized sinuses are unremarkable. No fluid levels. Mastoid air cells: Visualized mastoid air cells are well aerated. Bones: Unremarkable. No acute fracture. Soft tissues: Unremarkable. IMPRESSION: No acute intracranial abnormality. ASSESSMENT: ASPECTS ([place] Stroke Program Early CT Score) is 10.
--- NOTE | 2024-07-19 21:07 | CT_ITS ---
PROCEDURE INFORMATION: Exam: CTA Neck With Contrast Exam date and time: 07/19/2024 9:29 PM Age: 59 years old Clinical indication: Stroke-like symptoms; Altered mental status/memory loss; Additional info: Possible stroke TECHNIQUE: Imaging protocol: Computed tomographic angiography of the neck with contrast. Exam focused on the cervical segments of the vasculature. 3D rendering (Not supervised by radiologist): MIP and/or 3D reconstructed images were created by the technologist. Radiation optimization: All CT scans at this facility use at least one of these dose optimization techniques: automated exposure control; mA and/or kV adjustment per patient size (includes targeted exams where dose is matched to clinical indication); or iterative reconstruction. Contrast material: ISOVUE; Contrast volume: 80 ml; Contrast route: INTRAVENOUS (IV); COMPARISON: CT HEAD/BRAIN WO CON 07/19/2024 9:27 PM FINDINGS: Right common carotid artery: No stenosis. No dissection or occlusion. Right internal carotid artery: No stenosis of the extracranial segment. No dissection or occlusion. Right external carotid artery: No occlusion or stenosis of the origin. Left common carotid artery: No stenosis. No dissection or occlusion. Left internal carotid artery: No stenosis of the extracranial segment. No dissection or occlusion. Left external carotid artery: No occlusion or stenosis of the origin. Right vertebral artery: No stenosis. No dissection or occlusion. Left vertebral artery: No stenosis. No dissection or occlusion. Soft tissues: Normal. No significant soft tissue swelling. Bones/joints: No acute fracture. IMPRESSION: No stenosis or occlusion. REFERENCES: NASCET CRITERIA. The degree of stenosis in the cervical segment of the internal carotid artery is based on NASCET criteria. Normal is no stenosis. Mild is less than 50% stenosis. Moderate is 50-69% stenosis. Severe is 70% to 99% stenosis. Total occlusion is no detectable patent lumen.
--- NOTE | 2024-07-19 21:07 | CT_ITS ---
PROCEDURE INFORMATION: Exam: CTA Head With Contrast, Arteriography Exam date and time: 07/19/2024 9:29 PM Age: 59 years old Clinical indication: Stroke-like symptoms; Altered mental status/memory loss; Additional info: Possible stroke TECHNIQUE: Imaging protocol: Computed tomographic angiography of the head with contrast. Exam focused on the arteries. 3D rendering (Not supervised by radiologist): MIP and/or 3D reconstructed images were created by the technologist. Radiation optimization: All CT scans at this facility use at least one of these dose optimization techniques: automated exposure control; mA and/or kV adjustment per patient size (includes targeted exams where dose is matched to clinical indication); or iterative reconstruction. Contrast material: ISOVUE; Contrast volume: 80 ml; Contrast route: INTRAVENOUS (IV); COMPARISON: CT HEAD/BRAIN WO CON 07/19/2024 9:27 PM FINDINGS: ANTERIOR CIRCULATION: Right internal carotid artery: Intracranial segment is patent with no significant stenosis. No aneurysm. Right middle cerebral artery: No occlusion or significant stenosis. No aneurysm. Right anterior cerebral artery: No occlusion or significant stenosis. No aneurysm. Left internal carotid artery: Intracranial segment is patent with no significant stenosis. No aneurysm. Left middle cerebral artery: No occlusion or significant stenosis. No aneurysm. Left anterior cerebral artery: No occlusion or significant stenosis. No aneurysm. POSTERIOR CIRCULATION: Right vertebral artery: No occlusion or significant stenosis. No aneurysm. Left vertebral artery: No occlusion or significant stenosis. No aneurysm. Basilar artery: No occlusion or significant stenosis. No aneurysm. Right posterior cerebral artery: No occlusion or significant stenosis. No aneurysm. Left posterior cerebral artery: No occlusion or significant stenosis. No aneurysm. Brain: No definite mass, mass effect, or midline shift. Cerebral ventricles: No ventriculomegaly. Bones/joints: Unremarkable. No acute fracture. Soft tissues: Unremarkable. IMPRESSION: No large vessel stenosis or occlusion.
--- NOTE | 2024-07-19 21:07 | XR_ITS ---
PROCEDURE INFORMATION: Exam: XR Chest Exam date and time: 07/19/2024 9:33 PM Age: 59 years old Clinical indication: Pain; Other: Cp TECHNIQUE: Imaging protocol: Radiologic exam of the chest. Views: 1 view. COMPARISON: CT ANGIO NECK 07/19/2024 9:29 PM FINDINGS: Lungs: Unremarkable. No consolidation. Pleural spaces: Unremarkable. No pleural effusion. No pneumothorax. Heart/Mediastinum: Unremarkable. No cardiomegaly. Bones/joints: Unremarkable. IMPRESSION: No acute findings.
[2024-07-19] MEDS: ACETAMINOPHEN 1,000MG/100ML VIAL 1000 MG IV (21:12)
[2024-07-19 21:14] LABS: Basophils # 0.1 K/mm3 (0-0.2); Basophils % 0.6 % (0.1-2.0); Eosinophils # 0.1 Kmm3 (0.0-0.4); Eosinophils % 1.3 % (0.1-12.0); Hematocrit 35.6 % (42.0-52.0); Hemoglobin 12.1 g/dL (14.1-18.0); Lymphocytes # 1.3 K/mm3 (0.7-4.5); Lymphocytes % 16.1 % (10-50); Mean Corpuscular Hemoglobin 29.2 pg (27.0-31.2); Mean Corpuscular Volume 85.8 fl (80-94); Mean Platelet Volume 9.1 fl (7.4-10.4); Monocytes # 0.6 K/mm3 (0.1-1.0); Neutrophils # 5.8 K/mm3 (1.8-7.8); Neutrophils % 73.7 % (37.0-80.0); Nucleated Red Blood Cells # 0 10^3/uL; Nucleated Red Blood Cells % 0 %; Platelet Count 416 K/mm3 (142-424); Red Blood Count 4.15 M/mm3 (4.60-6.20); Red Cell Distribution Width 13.2 % (11.5-17.5); Red Cell Distribution Width-SD 41.2 fL; White Blood Count 7.8 K/mm3 (4.8-10.8)
--- NOTE | 2024-07-19 21:15 | ECG_ITS ---
APPROVED REPORT Exam: Resting ECG HR:91 bpm ECG Measurements Heart Rate 91 AXES VA 176 P 69 QRSd 109 QRS -16 QT 373 T 52 QTc 422 Conclusion SINUS RHYTHM INCOMPLETE RIGHT BUNDLE BRANCH BLOCK [90+ ms QRS DURATION, TERMINAL R IN V1/V2, 40+ ms S IN I/aVL/V4/V5/V6] No acute ST changes Electronically signed by : PAUL CHANDRA, 07/20/2024 00:45:49
[2024-07-19 21:20] LABS: Albumin Level 4.4 g/dl (3.5-5.0); Chloride 91 mmol/L (98-107)
[2024-07-19 21:21] LABS: Potassium 3.5 mmoL/L (3.5-5.1); Sodium 128 mmol/L (136-145)
[2024-07-19 21:22] LABS: POC Glucose,Bedside 90 (70-110)
[2024-07-19 21:23] LABS: Alanine Aminotransferase 36 U/L (12-78); Anion Gap 11.5 mEq/L (5-15); Aspartate Amino Transferase 31 U/L (17-59); Blood Urea Nitrogen 6 mg/dl (9-20); Carbon Dioxide 29 mmol/L (22.0-30.0); Creatinine Clearance Estimated 159 mL/min (50-200); Estimated Glomerular Filt Rate 116 ml/min (>60); GFR (African American) 140 ML/MIN (>60)
[2024-07-19 21:24] LABS: Albumin/Globulin Ratio 1.5 (1.1-1.8); Alkaline Phosphatase 96 U/L (38-126); Bilirubin,Total 0.1 mg/dl (0.2-1.3); Chol/HDL Ratio 3.8 (1-3.5); Cholesterol 163 mg/dl (140-200); Globulin 2.9 g/dL (1.3-3.2); Glucose 99 mg/dl (74-100); HDL Cholesterol 43 mg/dl (40-60); Total Protein,Serum 7.3 g/dl (6.3-8.2); Triglycerides 104 mg/dl (30-150); VLDL Cholesterol 21 mg/dL (0-40)
[2024-07-19 21:26] LABS: Activated Partial Thrombo Time 31.1 seconds (22.8-30.6); INR 0.91 (0.9-1.1); Prothrombin Time 10.3 seconds (10.1-12.5)
[2024-07-19 21:32] LABS: Ethyl Alcohol < 10 mg/dl (0-10)
[2024-07-19 21:35] LABS: Direct LDL Cholesterol 96.55 mg/dL (100-129)
[2024-07-19 21:38] LABS: Troponin I < 0.01 ng/ml (0.00-0.034)
[2024-07-19] MEDS: SODIUM CHLORIDE 0.9% 10ML SYR (RAD ONLY) 10 ML IV (21:39)
[2024-07-19] MEDS: IOPAMIDOL-370 (76%);100ML BOTTLE 80 ML IV (21:39)
[2024-07-19] MEDS: 0.9 % SODIUM CHLORIDE 50 ML VIAL IV (21:39)
[2024-07-19 21:40] LABS: Microscopic, Urine URINE MICROSCOPIC (MICROSCOPIC)
[2024-07-19 21:41] LABS: Appearance,Urine CLEAR (Clear); Bilirubin,Urine Negative (Negative); Blood, Urine Negative (Negative); Color,Urine YELLOW (Yellow); Glucose,Urine (UA) Negative (Negative); Ketones,Urine Negative (Negative); Leukocyte Esterase,Urine Negative (Negative); Nitrate,Urine Negative (Negative); Protein,Urine Negative (Negative); Specific Gravity, Urine <= 1.005 (1.005-1.030); Urobilinogen,Urine 0.2 EU/dl (0.2)
[2024-07-19 21:52] LABS: Amphetamine/Metha Screen,Urine Negative ng/ml (<1000); Benzodiazepines Screen,Urine Negative ng/ml (<200)
[2024-07-19 21:53] LABS: Barbiturates Screen,Urine Negative ng/ml (<200)
[2024-07-19 21:54] LABS: Cannabinoid Screen,Urine Negative ng/ml (<50); Cocaine Screen,Urine Negative ng/ml (<300)
[2024-07-19 21:55] LABS: Methadone Screen,Urine Negative ng/ml (<300)
[2024-07-19 21:56] LABS: Opiate Screen,Urine Negative ng/ml (<300); Phencyclidine Screen,Urine Negative ng/ml (<25)
[2024-07-19 22:57] VITALS: BP 143/98; PULSE 88; RESP 16; TEMP 36.6; O2SAT 98
== END 2024-07-19 22:57 | disposition home or self-care (01) ==
PROVIDERS: Nurse Practitioner; Emergency Provider Emergency Medicine; PCP Nurse Practitioner Family
DX: R51.9 Headache, unspecified (principal); E87.1 Hypo-osmolality and hyponatremia; I10 Essential (primary) hypertension; R29.818 Other symptoms and signs involving the nervous system
CPT/HCPCS: 70450; 70496; 70498; 71045; 80053; 80061; 80307; 80320; 81001; 82962; 84484; 85025; 85610; 85730; 93005; 96374; 99285; J0131; Q9967

== ENCOUNTER 2024-12-23 10:55 | Outpatient (CLI) | payer BC, SELFPAY ==
[2024-12-23 16:01] LABS: Influenza A, PCR Not Detected (NotDetected); Influenza B, PCR Not Detected (NotDetected)
[2024-12-23 21:05] LABS: Coronavirus 19, PCR Detected (NotDetected)
--- OUTSIDE RECORDS SUMMARY | 2024-12-25 10:57 | XMS_ITS | Clinical Summary ---
Author Organization Healthcare Address [address] [place] [address] Care Team Providers Care Practice Lead Name Role Phone Leslie Hanna APRN Primary Care Provider [phone] Allergies Active Allergy Reactions Criticality Noted Date Comments Oxycodone-Acetaminophen Rash Low 06/10/2019 Medications amLODIPine (Norvasc) 5 MG tabletIndication s:Essential (primary) hypertension Take 1 tablet (5 mg) by mouth daily. 90 tablet 2 5 Active lansoprazole (Prevacid) [address] capsuleIndicatio ns:Gastroesophag eal reflux disease without esophagitis Take 1 capsule (30 mg) by mouth daily before breakfast. Do not crush or chew. 90 capsule 2 5 Active venlafaxine XR (Effexor-XR) 75 MG 24 hr capsuleIndicatio ns:Generalized anxiety disorder Take 1 capsule (75 mg) by mouth daily. Do not crush or chew. 90 capsule 2 5 Active tadalafil (Cialis) 5 MG tabletIndication s:Erectile dysfunction, unspecified erectile dysfunction type Take 1-4 tablets by mouth 30-60 minutes before intercourse 30 tablet 7 5 Active enalapril (Vasotec) 20 MG tabletIndication s:Essential (primary) hypertension Take 2 tablets by mouth daily. 180 tablet 3 5 Active Hospital, Clinic, or Other Facility Administered Medication Ordered Dose Route Frequency Start Date End Date Status sodium hyaluronate (Euflexxa) 20 MG/2ML injection 20 mgIndications:Chronic pain of left knee,Patellofemoral arthritis of left knee 20 mg IX Once 09/28/2022 Ac tive hylan (Synvisc) injection 48 mgIndications:Patellofemoral arthritis of left knee 48 mg IX Once 08/02/2023 Ac tive ropivacaine (Naropin) injection 2 mLIndications:Patellofemoral arthritis of left knee 2 mL IJ Once 08/02/2023 Ac tive lidocaine (Xylocaine) 1 % injection 10 mLIndications:Patellofemoral arthritis of left knee 10 mL IJ Once 08/02/2023 Ac tive triamcinolone acetonide (Kenalog-40) injection 40 mgIndications:Patellofemoral arthritis of left knee 40 mg IX Once 08/02/2023 Ac tive Active Problems Problem Noted Date Diagnosed Date Chondral defect of condyle of left femur 024 Complex tear of medial menis cus of left knee as current injury 12/24/2023 Primary osteoarthritis of one knee, left 024 Knee effusion, left 10/29/2023 Patellofemoral arthritis of left knee 10/07/2020 Prostatitis 03/16/2019 Overview (09/28/2021): Last Assessment & Plan: ASSESSMENT: The patient's condition is unchanged. PLAN: Discussed with patient. Start Doxy, Meloxicam and Flomax. Followup if symptoms persist. Obesity 02/27/2019 Colon polyps 09/07/2016 Overview (09/28/2021): Last Assessment & Plan: ASSESSMENT: The patient's condition is unchanged. PLAN: Recommend colonoscopy RLS (restless legs syndrome) 09/07/2016 Overview (09/28/2021): Last Assessment & Plan: ASSESSMENT: The patient's condition is unchanged. PLAN: Discussed with pt. Consider Requip. Pt. Declines. Consider sleep study. Pt. Will consider it. History of alcohol abuse 05/18/2016 Overview (09/28/2021): Last Assessment & Plan: Subjective: Pt. Has been sober for 6 months. Assessment/Plan: Continue with current therapy. Resolved Problems Problem Noted Date Diagnosed Date Resolved Date Acute pain of left knee 10/29/202312/01 Insomnia 09/07/2016 12/20/2024 Overview (09/28/2021): Last Assessment & Plan: Subjective: Pt. Reports difficulty getting to sleep and staying asleep. He reports that it is worse since he stopped drinking. He reports that he snores at night and is tired during the day. Pt. Reports that he has not tried anything otc. He reports some twitching to his muslces as he is going to bed. His thinks he may have EZE. His adjusts his bed position at night to keep him from sleep. Assessment: Discussed with patient. Recommend sleep study. See attached ESS today. Encounters Date Type Department Care Team Description 10/16/2024 1:20 PM EDT Office Visit [facility] Medicine [address] [place] [address] Deja Quintana, RESEARCH DAIRY FARM SUPERVISOR Epididymitis, right (Primary Dx) 10/16/2024 Travel from Last 3 Months Immunizations Immunization Administration Dates Next Due Influenza, Unspecified 01/17/2018,04/01/2016,10/2009 Influenza, injectable, quadr ivalent, preservative free 01/26/2019 Influenza, seasonal, intrade rmal, preservative free 02/16/2015 Tdap 11/10/2021,03/15/2016,05/28/2014 Family History Medical History Relation Name Comments Diabetes Brother Wilfrido Hypertension Father Alcohol abuse Father's Brother Matt No Known Problems Maternal Grandfather Diabetes Maternal Grandmother Mellissa Diabetes Mother Alicia Hypertension Mother Alicia Kidney disease Mother Alicia No Known Problems Paternal Grandfather No Known Problems Paternal Grandmother No Known Problems Sister Asthma Son Raj Relation Name Status Comments Brother Wilfrido Alive 2 brothers Father Alive Father's Brother Matt Maternal Grandfather Maternal Grandmother Mellissa Mother Alicia Alive Paternal Grandfather Paternal Grandmother Sister Alive Son Raj Alive 2 sons Social History Tobacco Use Types Packs/Day Years Used Date Smoking Tobacco: Never Passive Smoke Exposure: Never Smokeless Tobacco: Current Snuff, Chew Tobacco Cessation:Ready to Q uit: No; Counseling Given: Yes Alcohol Use Standard Drinks/Week Comments Yes 4 (1 standard drink = 0.6 oz pur e alcohol) Humiliation, Afraid, Rape, and Kick questionnair e Answer Date Recorded Within the last year, have y ou been afraid of your partner or ex-partner? No 04/07/2024 Within the last year, have y ou been humiliated or emotionally abused in other ways by your partner or ex-partner? No Within the last year, have y ou been kicked, hit, slapped, or otherwise physically hurt by your partner or ex-partner? No 04/07/2024 Within the last year, have y ou been raped or forced to have any kind of sexual activity by your partner or ex-partner? No 04/07/2024 PHQ-2 Answer Date Recorded Patient Health Questionnaire-2 Score 0 04/07/2024 Hunger Vital Sign Answer Date Recorded Within the past 12 months, y ou worried that your food would run out before you got the money to buy more. Never true 04/07/19 Within the past 12 months, t he food you bought just didn't last and you didn't have money to get more. Never true 04/07/2024 PRAPARE - Transportation Answer Date Re corded In the past 12 months, has l ack of transportation kept you from medical appointments or from getting medications? No 09/2024 In the past 12 months, has l ack of transportation kept you from meetings, work, or from getting things needed for daily living? No 04/07/2024 Housing Stability Vital Sign Answer Melvin e Recorded In the last 12 months, was t here a time when you were not able to pay the mortgage or rent on time? Patient declined 08/24/19 24 Number of Places Lived in the Last Year Not on f ile 08/24/2023 In the last 12 months, was t here a time when you did not have a steady place to sleep or slept in a skilled nursing (including now)? Patient declined 08/24/2023 PHQ-9 Answer Date Recorded Patient Health Questionnaire-9 Score 1 04/07/2024 Housing Stability Vital Sign Answer Melvin e Recorded In the last 12 months, was t here a time when you were not able to pay the mortgage or rent on time? No 04/07/2024 Number of Times Moved in the Last Year Not on fi le 04/07/2024 At any time in the past 12 m [facility], were you homeless or living in a skilled nursing (including now)? No 04/07/2024 Safety and Environment Answer Date Valerio rded Do you worry that your child may have been physically abused? No 04/07/2024 Do you worry that your child may have been sexua lly abused? No 04/07/2024 Are there any guns kept in o r around your home or where your child spends time? No 04/07/2024 Guns Unloaded or Locked Away Not on file 09/2024 Utilities Answer Date Recorded In the past 12 months has e electric, gas, oil, or water company threatened to shut off services in your home? No 04/07/2024 PHQ-2A Answer Date Recorded Patient Health Questionnaire-2 Score 0 09/14/2022 Sex and Gender Information Value Date Recorded Sex Assigned at Not on file Legal Sex Male 10:54 AM EDT Gender Identity Not on file Sexual Orientation Not on file Occupation Industry Job Start Date Job End Date [employer] Not on file Not on file Not on file Last Filed Vital Signs Vital Sign Reading Time Taken Comments Blood Pressure 130/82 10/16/2024 1:43 PM EDT Pulse 79 10/16/2024 1:43 PM EDT Temperature 37 C (98.6 F) 10/16/2024 1:43 PM EDT Respiratory Rate 18 10/16/2024 1:43 PM EDT Oxygen Saturation 98% 10/16/2024 1:43 PM EDT Inhaled Oxygen Concentration - - Weight 101 kg (222 lb 1.6 oz) 10/16/2024 1:43 PM EDT Height 175.3 cm (5' 9 ) 10/16/2024 1:43 PM EDT Body Mass Index 32.8 10/16/2024 1:43 PM EDT Plan of Treatment Health Maintenance Due Date Last Done Comments [facility]-HIV Screening 1965 [facility]-Hepatitis C Screening 1965 [facility]-Hepatitis B Vaccines (1 of 3 - 19+ 3-dose series) 1985 CT Colonography 07/18/2011 FIT-DNA 07/18/2011 FIT 07/18/2011 FOBT 07/18/2011 Sigmoidoscopy 07/18/2011 [facility]-Pneumococcal Vaccine: 50+ Years (1 of 1 - PCV) 2016 [facility]-Zoster Vaccines (1 of 2) 2016 [facility]- SDOH Screenings 10/05/2024 [facility]-Adult SDOH Screenings 10/05/2024 04/07/2024 [facility]-/Child/Adol SDOH Screenings 10/05/2024 04/07/2024 [id number] Vaccine ( - season) 2024 [facility]-Influenza Vaccine (#1) 11/30/202401/26, 01/17/2018, 04/01/2016, Additional history exists [facility]-Depression Screening 04/07/2025 04/07/2024, 09/2024 [facility]-DTaP,Tdap,and Td Vaccines (4 - Td or Tdap) 11/11/2031 11/10/2021, 03/15/2016, 05/28/2014 Colonoscopy 06/10/2033 06/11/2023, 05/30, 06/07/2023 [facility]-Colorectal Cancer Screening 06/10/2033 [facility]-Diabetes: Hemoglobin A1C Discontinued 08/21/2022, 09/28/2021 [facility]-Obesity Intervention Completed 025, 07/27/2024, 04/07/2024, Additional history exists HPV Vaccines Aged Out No longer eligi ble based on patient's age to complete this topic [facility]-HIB Vaccines Aged Out No longer e ligible based on patient's age to complete this topic [facility]-Hepatitis A Vaccines Aged Out No longer eligible based on patient's age to complete this topic [facility]-IPV Vaccines Aged Out No longer e ligible based on patient's age to complete this topic [facility]-Rotavirus Vaccines Aged Out No lo nger eligible based on patient's age to complete this topic Procedures Procedure Name Priority Date/Time Associated Diagnosis Comments COLONOSCOPY EXTERNAL RESULT 06/11/2023 HEMOGLOBIN A1C Routine 08/21/2022 10:06 AM EDT Prediabetes from Last 3 Months or Most Recently Relevant to Health Maintenance Results * COLONOSCOPY EXTERNAL RESULT (06/11/2023) Anatomical Region Laterality Modality Endoscopy Narrative 06/11/2023 Ordered by an unspecified provider. us External Provider GI PROCEDURE ORDERABLES Final Result * Hemoglobin A1c (08/21/2022 10:06 AM EDT) Hemoglobin A1c 5.6 <5.7 % 08/21/2022 1:19 PM EDT [facility] Blood Venous blood specimen / Unknown Venipuncture / Unknown 08/21/2022 10:06 AM EDT 08/21/2022 10:06 AM EDT Narrative [facility] - 08/21/2022 1:19 PM EDT HA1C Interpretive Data: Diagnosis of Diabetes: Diabetic > or = 6.5% Pre-diabetic 5.7 to 6.4% Non-diabetic < or = 5.6% Glycemic Targets for Type I and Type II Diabetics: Non- Adults <7.0% Adults <6.0% Children and Adolescents <7.5% Source: [place] [employer]. Standards of medical care in diabetes,2017. Diabetes Care.2017:40 (suppl 1):S1-S135. HbA1c assay performed by an ion-exchange chromatography method that is certified traceable to the DCCT. Onelia Benavides RESEARCH DAIRY FARM SUPERVISOR LAB BLOOD ORDERABLES Afllon l Result [facility] [address] [place] [address] from Last 3 Months or Most Recently Relevant to Health Maintenance Insurance [facility] Care Teams Practice Lead Relationship Specialty Start Date End Date Leslie Hanna, RESEARCH DAIRY FARM SUPERVISOR [facility] [address] [place] [address] PCP - General Family Medicine 07/11/23
--- OUTSIDE RECORDS SUMMARY | 2024-12-25 10:57 | XMS_ITS | Clinical Summary ---
[facility] [address] [place] [address] Care Team Providers Care State Wildlife Officer Name Role Phone Onelia Benavides APRN Primary Care Provider Social History Tobacco Use Types Packs/Day Years Used Date Smoking Tobacco: Never Assessed Abuse Screen Answer Date Recorded Unsafe at Home or Work/School Not on file Feels Threatened by Someone? Not on file Does Anyone Keep You from Co ntacting Others or Doint Things Outside the Home? Not on file 01/11/2023 Physical Sign of Abuse Present Not on file 1 Housing Stability Answer Date Recorded Current Living Arrangements Not on file 12/30 Potentially Unsafe Housing Conditions Not on maxi e 01/11/2023 Family and Community Support Answer Melvin e Recorded Help with Day-to-Day Activities Not on file 01/11/2023 Lonely or Isolated Not on file 01/11/2023 Employment Answer Date Recorded Do you want help finding or keeping work or a johnny b? Not on file 01/11/2023 Disabilities Answer Date Recorded Concentrating, Remembering, or Making Decisions Difficulty Not on file 01/11/2023 Doing Errands Independently Difficulty Not on fi le 01/11/2023 Education Answer Date Recorded Help with school or training? Not on file Preferred Language Not on file 01/11/2023 Sex and Gender Information Value Date Recorded Sex Assigned at Not on file Legal Sex Male 1:11 PM EDT Gender Identity Not on file Sexual Orientation Not on file Plan of Treatment Health Maintenance Due Date Last Done Comments ANNUAL PHYSICAL 1965 HEPATITIS C SCREENING 1965 COLOGUARD 07/18/2011 COLON CANCER SCREENING 5 YEA R SIGMOIDOSCOPY 07/18/2011 COLONOSCOPY 07/18/2011 COLORECTAL CANCER SCREENING 07/18/2011 CT COLONOGRAPHY 07/18/2011 FECAL OCCULT BLOOD TEST 07/18/2011 FIT Testing (1 year) 07/18/2011 Pneumococcal Vaccine 50+ (1 of 1 - PCV) 2016 ZOSTER VACCINE (1 of 2) 2016 INFLUENZA VACCINE 10/30/2024 01/26/2019, , 04/01/2016, Additional history exists TDAP/TD VACCINES (4 - Td or Tdap) 11/11/2031 11/10/2021, 03/15/2016, 05/28/2014 Insurance [facility] PPO Care Teams State Wildlife Officer Relationship Specialty Start Date End Date Onelia Benavides APRN [address] [place], [place] [id number] PCP - General Nurse Practitioner 08/22/22
--- OUTSIDE RECORDS SUMMARY | 2024-12-25 10:58 | XMS_ITS | Encounter Summary ---
Author Organization Healthcare Address [address] [place] [address] Care Team Providers Care Algebraist Name Role Phone Onelia Benavides APRN Primary Care Provider [phone] Leslie Hanna APRN Primary Care Provider [phone] Encounter Details Date Type Department Care Team (Late st Contact Info) Description 03/12/2023 Orders Only External Location [address] [place] [address] Teddy Pierson MD [address] [place] [address] [place] [address] Social History Tobacco Use Types Packs/Day Years Used Date Smoking Tobacco: Never Passive Smoke Exposure: Never Smokeless Tobacco: Current Chew Alcohol Use Standard Drinks/Week Comments Yes 4 (1 standard drink = 0.6 oz pur e alcohol) PHQ-2 Answer Date Recorded Patient Health Questionnaire-2 Score 0 09/14/2022 PHQ-2A Answer Date Recorded Patient Health Questionnaire-2 Score 0 09/14/2022 Sex and Gender Information Value Date Recorded Sex Assigned at Not on file Legal Sex Male 10:54 AM EDT Gender Identity Not on file Sexual Orientation Not on file Occupation Industry Job Start Date Job End Date [employer] Not on file Not on file Not on file documented as of this encounter Plan of Treatment Not on file documented as of this encounter Procedures Procedure Name Priority Date/Time Associated Diagnosis Comments US OUTSIDE IMAGES 03/12/2023 7:10 PM EST documented in this encounter Results * US OUTSIDE IMAGES (03/12/2023 7:10 PM EST) Anatomical Region Laterality Modality Ultrasound 03/12/2023 7:10 PM EST us Teddy Pierson MD [facility] PROCEDURES Final Result documented in this encounter Visit Diagnoses Not on filedocumented in this encounter Additional Health Concerns Assessment Noted Time A fall risk assessment has been complete d for the patient 09/28/2021 9:09 AM EDT A Body Mass Index follow-up plan has been documented for the patient 09/18/2022 3:36 PM EDT documented as of this encounter Care Teams Algebraist Relationship Specialty Start Date End Date Onelia Benavides, COSTUME RENTAL CLERK [address] [place] [id number] PCP - General Family Medicine 09/28/21 07/10/23 Leslie Hanna APRN [address] [place] [address] PCP - General Family Medicine 07/11/23 documented as of this encounter
--- OUTSIDE RECORDS SUMMARY | 2024-12-25 10:58 | XMS_ITS | Encounter Summary ---
Author Organization Healthcare Address [address] [place] [address] Care Team Providers Care Communications Associate Name Role Phone Onelia Benavides APRN Primary Care Provider [phone] Leslie Hanna REALTY LOAN SPECIALIST Primary Care Provider [phone] Encounter Details Date Type Department Care Team (Late st Contact Info) Description 08/22/2022 Orders Only External Location [address] [place] [address] Onelia Benavides, REALTY LOAN SPECIALIST [address] [place] [address] Social History Tobacco Use Types Packs/Day Years Used Date Smoking Tobacco: Never Passive Smoke Exposure: Never Smokeless Tobacco: Current Chew Alcohol Use Standard Drinks/Week Comments Yes 4 (1 standard drink = 0.6 oz pur e alcohol) PHQ-2 Answer Date Recorded Patient Health Questionnaire-2 Score 0 08/21/2022 Sex and Gender Information Value Date Recorded [...] Procedure Name Priority Date/Time Associated Diagnosis Comments XR OUTSIDE IMAGES 08/22/2022 2:11 PM EDT documented in this encounter Results * XR OUTSIDE IMAGES (08/22/2022 2:11 PM EDT) Anatomical Region Laterality Modality Radiographic Farhana ging 08/22/2022 2:11 PM EDT us Onelia Benavides APRN IMG XR PROCEDURES Final R esult documented in this encounter Visit Diagnoses Not on filedocumented in this encounter Additional Health Concerns Assessment Noted Time A fall risk assessment has been complete d for the patient 09/28/2021 9:09 AM EDT A Body Mass Index follow-up plan has been documented for the patient 08/22/2022 3:07 PM EDT documented as of this encounter Care Teams Communications Associate Relationship Specialty Start Date End Date Onelia Benavides APRN [address] [place] [phone] PCP - General Family Medicine 09/28/21 07/10/23 Leslie Hanna APRN [address] [place] [address] PCP - General Family Medicine 07/11/23 documented as of this encounter
== END 2024-12-23 23:59 ==
LOC: LAB.DROPOF 12-25 10:56
PROVIDERS: PCP Nurse Practitioner Family; Visit Provider Student in an Organized Health Care Education/Training Program
DX: R50.9 Fever, unspecified (principal)
CPT/HCPCS: 87636

== ENCOUNTER 2025-03-03 14:58 | Inpatient (IN) | payer BC, SELFPAY ==
--- OUTSIDE RECORDS SUMMARY | 2025-01-29 10:20 | XMS_ITS | Encounter Summary ---
Author Organization Healthcare Address [address] 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 Name Role Phone Leslie Hanna FURRIER APPRENTICE Primary Care Provider [phone] Reason for Visit * Reason Comments Annual Exam Encounter Details Date Type Department Care Team (Late st Contact Info) Description 01/29/2025 11:20 AM EDT Office Visit [facility] [address] [place] [address] Leslie Hanna, FURRIER APPRENTICE [address] [place] [address] Annual physical exam (Primary Dx); Essential (primary) hypertension; Gastroesophageal reflux disease without esophagitis; Erectile dysfunction, unspecified erectile dysfunction type; Generalized anxiety disorder; Hyponatremia; Tubular adenoma; Encounter for screening for malignant neoplasm of prostate; Need for vaccination; Healthcare maintenance Social History Tobacco Use Types Packs/Day Years Used Date Smoking Tobacco: Never Passive Smoke Exposure: Never Smokeless Tobacco: Current Snuff, Chew Alcohol Use Standard Drinks/Week Comments Yes 4 (1 standard drink = 0.6 oz pur e alcohol) PHQ-2 Answer Date Recorded Patient Health Questionnaire-2 Score 0 01/29/2025 PHQ-9 Answer Date Recorded Patient Health Questionnaire-9 Score 6 01/29/2025 Humiliation, Afraid, Rape, and Kick questionnair e Answer Date Recorded Within the last year, have y ou been afraid of your partner or ex-partner? No 01/26/2025 Within the last year, have y ou been humiliated or emotionally abused in other ways by your partner or ex-partner? No Within the last year, have y ou been kicked, hit, slapped, or otherwise physically hurt by your partner or ex-partner? No 01/26/2025 Within the last year, have y ou been raped or forced to have any kind of sexual activity by your partner or ex-partner? No 01/26/2025 Hunger Vital Sign Answer Date Recorded Within the past 12 months, y ou worried that your food would run out before you got the money to buy more. Never true 01/27/20 25 Within the past 12 months, t he food you bought just didn't last and you didn't have money to get more. Never true 01/26/2025 PRAPARE - Transportation Answer Date Re corded In the past 12 months, has l ack of transportation kept you from medical appointments or from getting medications? No 12/31 In the past 12 months, has l ack of transportation kept you from meetings, work, or from getting things needed for daily living? No 01/26/2025 Housing Stability Vital Sign Answer Melvin e Recorded In the last 12 months, was t here a time when you were not able to pay the mortgage or rent on time? No 01/26/2025 Number of Times Moved in the Last Year Not on fi le 01/26/2025 At any time in the past [facility], were you homeless or living in a snf (including now)? No 01/26/2025 [facility] Utilities Answer Date Recorded In the past 12 months has th e electric, gas, oil, or water company threatened to shut off services in your home? No 01/26/2025 Safety and Environment Answer Date Valerio rded Do you worry that your child may have been physically abused? No 04/07/2024 Do you worry that your child may have been sexua lly abused? No 04/07/2024 Are there any guns kept in o r around your home or where your child spends time? 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 Not on file Not on file Not on file documented as of this encounter Last Filed Vital Signs Vital Sign Reading Time Taken Comments Blood Pressure 134/74 01/29/2025 11:40 AM EDT Pulse 76 01/29/2025 11:40 AM EDT Temperature 37.1 C (98.8 F) 01/29/2025 11:40 AM EDT Respiratory Rate 18 01/29/2025 11:40 AM EDT Oxygen Saturation 99% 01/29/2025 11:40 AM EDT Inhaled Oxygen Concentration - - Weight 104 kg (229 lb 4.5 oz) 01/29/2025 11:40 A M EDT Height 175.3 cm (5' 9 ) 01/29/2025 11:40 AM EDT Body Mass Index 33.86 01/29/2025 11:40 AM EDT documented in this encounter Functional Status * Over the past 2 weeks, how often have you been bothered by any of the following problems? Question Answer Date of Assessment Author Little interest or pleasure in doing things Not at all 01/29/2025 11:41 AM EDT Renetta Katz Feeling down, depressed, or hopeless Not at all 01/01 11:41 AM EDT Renetta Katz Patient Health Questionnaire-2 Score 0 01/01 11:41 AM EDT Renetta Katz * Question Answer Date of Assessment Author Trouble falling or staying a sleep, or sleeping too much Several days 01/29/2025 11:41 AM EDT Renetta Katz Feeling tired or having fernando le energy Several days 01/29/2025 11:41 AM EDT Renetta Katz Poor appetite or overeating Several days 01/29/2025 11 :41 AM EDT Renetta Katz Feeling bad about yourself - or that you are a failure or have let yourself or your family down Several days 01/29/2025 11:41 AM EDT Renetta Katz Trouble concentrating on thi ngs, such as reading the newspaper or watching television Several days 01/29/2025 11:41 AM EDT Renetta Katz Moving or speaking so slowly that other people could have noticed? Or the opposite - being so fidgety or restless that you have been moving around a lot more than usual. Several days 01/29/2025 11:41 AM Renetta Cortes Thoughts that you would be b daniel off or hurting yourself in some way Not at all 01/29/2025 11:41 AM Renetta Cortes Patient Health Questionnaire -9 Score 6 01/29/2025 11:41 AM Renetta Cortes * Calculated C-SSRS Risk Score (Lifetime/Recent) Answer Date of Assessment Author No Risk Indicated 01/29/2025 11:41 AM Renetta Cortes * How difficult have these problems made it for you to do your work, take care of things at home, or get along with other people? Answer Date of Assessment Author Somewhat difficult 01/29/2025 11:41 AM Renetta Cortes * Question Answer Date of Assessment Author 1. Wish to be (Past 1 Month) No 025 11:41 AM Renetta Cortes 2. Non-Specific Active Suici fatmata Thoughts (Past 1 Month) No 01/29/2025 11:41 AM Renetta Cortes 6. Suicidal Behavior (Lifetime) No 11:41 AM Renetta Cortes documented as of this encounter Miscellaneous Notes * Progress Notes - Leslie Hanna, FURRIER APPRENTICE - 01/29/2025 11:20 AM EDT Subjective Bao Johnson HPI Mr. Johnson is here today for their annual visit. HTN--currently taking 5 mg of Amlodipine daily and 40 mg of Enalapril daily. He does not routinely Check blood pressure at home. Denies any adverse effects related to these medications. Blood pressure 134/74 in office today. Denies having any related symptoms including chest pain, shortness of breath, palpitations, headaches, or flushing. GERD--currently taking 30 mg of Lansoprazole daily. Reports that medication is working well to control symptoms without any adverse effects. Tries to avoid triggering foods and stays elevated when lying down if needed. Does not currently follow with a gastric specialist. ED--currently taking 5 mg of Tadalafil PRN. Anxiety--Is currently taking 75 mg of Venlafaxine daily. He does not currently see a counselor or therapist. Reports that he does have a good support system at home. Reports no symptoms of SI/HI. PHQscore of 6 today, BEAN-7 score of 0. No risk indicated on C-SSRS scoring guide today. Hx of Hyponatremia. Last checked in June of 2024 and resulted at 135. Suspect this is a medicationside effect from venlafaxine. Is currently asymptomatic. Due to have rechecked. Knee replaced in April--has continued to have pain and some swelling. Has not been able to be as active due to this and reports gaining weight due to this. He has a large FH of diabetes, so is concerned about his A1C being up. FH reviewed with patient and updated in chart. Does use chewing/snuff tobacco daily. Denies any alcohol or drug use history. Last colonoscopy was in 05/2023 and recommended repeat in 3-4 months due to finding of tubular adenoma and polyp. This has not yet been completed. Has scheduled for first week of March 2025 at [facility]. Last PSA screening was in 07/2022 and was within normal range. Last Tdap vaccination: 11/10/2021 Last Influenza vaccination: has not received yet this season Last Covid vaccination: Has not received yet this season Last Pneumococcal vaccination: Has not yet received Last Zoster vaccination: Has not yet started series Is up to date on dental and vision screenings within the past year. Problem List[1] Past Medical History[2] Surgical History[3] Family History[4] Medications Ordered Prior to Encounter[5] Allergies[6] All medications have been reviewed today. The following portions of the patient's chart were reviewed in this encounter and updated as appropriate: past medical history, surgical history, family history, tobacco history, allergies, and medications Over the last 2 weeks, how often have you been bothered by any of the following problems? Little interest or pleasure in doing things: Not at all Feeling down, depressed, or hopeless: Not at all Trouble falling or staying asleep, or sleeping too much: Several days Feeling tired or having little energy: Several days Poor appetite or overeating: Several days Feeling bad about yourself - or that you are a failure or have let yourself or your family down: Several days Trouble concentrating on things, such as reading the newspaper or watching television: Several days Moving or speaking so slowly that other people could have noticed? Or the opposite - being so fidgety or restless that you have been moving around a lot more than usual.: Several days Thoughts that you would be better off or hurting yourself in some way: Not at all Patient Health Questionnaire-9 Score: 6 Review of Systems A 14 point ROS reviewed and is otherwise negative except as per HPI. Objective Vitals: 01/29/25 1140 BP: 134/74 Pulse: 76 Resp: 18 Temp: 37.1 ??C (98.8 ??F) SpO2: 99% Physical Exam Vitals reviewed. Constitutional: General: He is not in acute distress. Appearance: Normal appearance. He is obese. HENT: Right Ear: Tympanic membrane and ear canal normal. Left Ear: Tympanic membrane and ear canal normal. Eyes: Pupils: Pupils are equal, round, and reactive to light. Neck: Thyroid: No thyroid mass or thyromegaly. Cardiovascular: Rate and Rhythm: Normal rate and regular rhythm. Pulmonary: Effort: Pulmonary effort is normal. Breath sounds: Normal breath sounds. No wheezing, rhonchi or rales. Abdominal: General: Bowel sounds are normal. Palpations: Abdomen is soft. Musculoskeletal: Cervical back: Neck supple. Right lower leg: No edema. Left lower leg: No edema. Neurological: Mental Status: He is alert and oriented to person, place, and time. Psychiatric: Mood and Affect: Mood normal. Behavior: Behavior normal. Assessment/Plan Diagnoses and all orders for this visit: Annual physical exam Established patient. No acute abnormal findings on physical exam today. Will order routine screening blood work to be completed, will assess results for any abnormalities/deficiencies, and will call patient with results when available. - Hemoglobin A1c - Comprehensive Metabolic Panel, Plasma - CBC W/O Differential - Thyroid Stimulating Hormone, Plasma - Lipid Profile, Plasma Essential (primary) hypertension Chronic, stable condition. Doing well on current medication. No refills needed at this time. - Comprehensive Metabolic Panel, Plasma Gastroesophageal reflux disease without esophagitis Chronic, stable condition. Doing well on current medication. No refills needed at this time. Erectile dysfunction, unspecified erectile dysfunction type Chronic, stable condition. Doing well on current medication. No refills needed at this time. Generalized anxiety disorder Chronic, stable condition. Doing well on current medication. No refills needed at this time. Hyponatremia History of. Due to have repeated. Asymptomatic currently. - Comprehensive Metabolic Panel, Plasma Tubular adenoma Finding on last colonoscopy. Has upcoming repeat scope scheduled. Encounter for screening for malignant neoplasm of prostate Discussed benefits of routine screenings. Encouraged patient to consider updating PSA screening. Patient agreeable to plan. Will order for collection. - Prostate Cancer Screen, Serum Need for vaccination Immunizations reviewed. I personally counseled patient on vaccines recommended for age. Recommendedpatient consider starting Shingrix vaccination series. Patient does wish to receive in clinic today. Ordered and administered. - zoster vaccine-recombinant adjuvanted (Shingrix) 50 MCG/0.5ML vaccine 50 mcg Healthcare maintenance Healthcare maintenance discussed with patient. Patient counseled on the following measures: --Nutrition: Stressed importance of moderation in sodium/caffeine intake, saturated fat and cholesterol, caloric balance, sufficient intake of fresh fruits, vegetables, fiber, calcium, and iron. --Discussed the issue of vitamin and supplement use. --Exercise: Stressed the importance of regular exercise. --Substance Abuse: Discussed cessation/primary prevention of tobacco, alcohol, or other drug use; driving or other dangerous activities under the influence; availability of treatment for abuse. --Sexuality: Discussed sexually transmitted diseases, partner selection, use of condoms, avoidance of unintended and contraceptive alternatives. --Injury prevention: Discussed safety belts, safety helmets, and smoke detector use within the household. --Dental health: Discussed importance of regular tooth brushing, flossing, and dental visits. --BMI is above average. The patient received The patient received dietary education because they have an above normal BMI. and The patient received exercise education because they have an above normal BMI. because they have an above normal BMI. 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 [2] Past Medical History: Diagnosis Date GERD (gastroesophageal reflux disease) Hypertension Left knee pain Right wrist fracture 2018 [3] Past Surgical History: Procedure Laterality Date COLONOSCOPY 1999 had 3, polyps, last one in >5 years VASECTOMY WISDOM TOOTH EXTRACTION WRIST FRACTURE SURGERY 2018 [4] Family History Problem Relation Name Age of Onset Diabetes Mother Alicia Hypertension Mother Alicia Kidney disease Mother Alicia Hypertension Father Diabetes Brother Wilfrido Diabetes Maternal Grandmother Mellissa No Known Problems Maternal Grandfather No Known Problems Paternal Grandmother No Known Problems Paternal Grandfather No Known Problems Sister Asthma Son Raj Alcohol abuse Father's Brother Matt [5] Current Outpatient Medications on File Prior to Visit Medication Sig Dispense Refill amLODIPine (Norvasc) 5 MG tablet Take 1 tablet (5 mg) by mouth daily. 90 tablet 2 enalapril (Vasotec) 20 MG tablet Take 2 tablets by mouth daily. 180 tablet 3 lansoprazole (Prevacid) [address] capsule Take 1 capsule (30 mg) by mouth daily before breakfast. Donot crush or chew. 90 capsule 2 tadalafil (Cialis) 5 MG tablet Take 1-4 tablets by mouth 30-60 minutes before intercourse 30 tablet7 venlafaxine XR (Effexor-XR) 75 MG 24 hr capsule Take 1 capsule (75 mg) by mouth daily. Do not crushor chew. 90 capsule 2 Current Facility-Administered Medications on File Prior to Visit Medication Dose Route Frequency Provider Last Rate Last Admin hylan (Synvisc) injection 48 mg 48 mg Intra-articular Once Arash Meléndez MD lidocaine (Xylocaine) 1 % injection 10 mL 10 mL Injection Once Arash Melédnez MD ropivacaine (Naropin) injection 2 mL 2 mL Injection Once Arash Meléndez MD sodium hyaluronate (Euflexxa) 20 MG/2ML injection 20 mg 20 mg Intra-articular Once Arash Meléndez MD triamcinolone acetonide (Kenalog-40) injection 40 mg 40 mg Intra-articular Once Arash Meléndez MD [6] Allergies Allergen Reactions Oxycodone-Acetaminophen Rash documented in this encounter Plan of Treatment Not on file documented as of this encounter Procedures Procedure Name Priority Date/Time Associated Diagnosis Comments PROSTATE CANCER SCREEN, SERUM Routine 01/29/2025 12:47 PM EDT Encounter for screening for malignant neoplasm of prostate CBC W/O DIFFERENTIAL Routine 01/29/2025 12:47 PM EDT Annual physical exam TSH Routine 01/29/2025 12:47 PM EDT Annual physical exam HEMOGLOBIN A1C Routine 01/29/2025 12:47 PM EDT Annual physical exam LIPID PROFILE, PLASMA Routine 01/29/2025 12:47 PM EDT Annual physical exam COMPREHENSIVE METABOLIC PANEL, PLASMA Routine 01/29/2025 12:47 PM EDT Annual physical exam Essential (primary) hypertension Hyponatremia documented in this encounter Results * Prostate Cancer Screen, Serum (01/29/2025 12:47 PM EDT) Pathologist [facility] Prostate Cancer Screen, Serum 0.55 0.00 - 3.50 ng/mL 01/29/2025 7:10 PM EDT [facility] Blood Venous blood specimen / Unknown Venipuncture / Unknown 01/29/2025 12:47 PM EDT 01/29/2025 12:47 PM EDT Narrative [facility] - 01/29/2025 7:10 PM EDT Performed by Josiah electrochemiluminescent immunoassay which is standardized against the PSA [place] Reference Standard (WHO 96/670). Results obtained with different test methods or kits cannot be used interchangeably. us Leslie Hanna APRN LAB BLOOD ORDERABLES Final Result [facility] [address] [place] [address] * (ABNORMAL) Lipid Profile, Plasma (01/29/2025 12:47 PM EDT) Pathologist [facility] Cholesterol, Plasma 184 <200 mg/dL 01/29/2025 7:01 PM EDT [facility] Comment: Cholesterol Reference Range (age >17 years): Desirable <200 mg/dL Borderline 200 to 239 mg/dL Undesirable >239 mg/dL HDL 53 >=40 mg/dL 01/29/2025 7:01 PM EDT [facility] Comment: HDL Cholesterol Reference Ranges (age >17 years): Female, acceptable > or = 50 mg/dL Male, acceptable > or = 40 mg/dL Triglycerides, Plasma 85 <150 mg/dL 01/29/2025 7:01 PM EDT [facility] Comment: Triglyceride Reference Range (age >17 years): Desirable: <150 mg/dL Borderline high: 150 to 199 mg/dL High: 200 to 499 mg/dL Very high: >499 mg/dL Increased risk of pancreatitis: >1000 mg/dL Cholesterol/HDL Ratio 3 01/29/2025 7:01 PM EDT [facility] LDL, Calculated 115(H) <100 mg/dL 7:01 PM EDT [facility] Comment: LDL Cholesterol Reference Range (age >17 years): Optimal: <100 mg/dL Near or above optimal: 100 - 129 mg/dL Borderline high: 130 - 159 mg/dL High: 160 - 189 mg/dL Very high: >189 mg/dL LDL Cholesterol Reference Range (age <18 years): Desirable: <110 mg/dL Borderline: 110 - 129 mg/dL Undesirable: >130 mg/dL LDL Cholesterol is calculated using the Dominique/NIH equation. Fasting greater than or equal to 12 hours? Yes 01/29/2025 7:01 PM EDT [facility] Blood Venous blood specimen / Unknown Venipuncture / Unknown 01/29/2025 12:47 PM EDT 01/29/2025 12:47 PM EDT us Leslie Hanna FURRIER APPRENTICE LAB BLOOD ORDERABLES Final Result [facility] [address] [place] [address] * Thyroid Stimulating Hormone, Plasma (01/29/2025 12:47 PM EDT) Thyroid Stimulating Hormone, Plasma 1.08 0.40 - 4.20 uIU/mL 01/29/2025 7:01 PM EDT [facility] Blood Venous blood specimen / Unknown Venipuncture / Unknown 01/29/2025 12:47 PM EDT 01/29/2025 12:47 PM EDT us Leslie Hanna FURRIER APPRENTICE LAB BLOOD ORDERABLES Final Result [facility] [address] [place] [address] * (ABNORMAL) CBC W/O Differential (01/29/2025 12:47 PM EDT) WBC Count 5.58 3.70 - 10.30 10*3/uL LAB HEMATOLOGY METHOD 01/29/2025 6:45 PM EDT [facility] RBC Count 4.62 4.60 - 6.10 10*6/uL LAB HEMATOLOGY METHOD 01/29/2025 6:45 PM EDT [facility] HGB 14.5 13.7 - 17.5 g/dL LAB HEMATOLOGY METHOD 01/29/2025 6:45 PM EDT [facility] HCT 42.6 40.0 - 51.0 % LAB HEMATOLOGY METHOD 01/29/2025 6:45 PM EDT [facility] Platelet Count 413(H) 155 - 369 10*3/uL LAB HEMATOLOGY METHOD 01/29/2025 6:45 PM EDT [facility] MCV 92 79 - 98 fL LAB HEMATOLOGY METHOD 01/29/2025 6:45 PM EDT [facility] MCH 31.4 26.0 - 32.0 pg LAB HEMATOLOGY METHOD 01/29/2025 6:45 PM EDT [facility] MCHC 34.0 30.7 - 35.5 g/dL LAB HEMATOLOGY METHOD 01/29/2025 6:45 PM EDT [facility] RDW 13.5 11.5 - 14.5 % LAB HEMATOLOGY METHOD 01/29/2025 6:45 PM EDT [facility] MPV 9.5 8.8 - 12.5 fL LAB HEMATOLOGY METHOD 01/29/2025 6:45 PM EDT [facility] nRBC 0.0 <=0.0 per 100 WBCs LAB HEMATOLOGY METHOD 01/29/2025 6:45 PM EDT [facility] Blood Venous blood specimen / Unknown Venipuncture / Unknown 01/29/2025 12:47 PM EDT 01/29/2025 12:47 PM EDT us Leslie Hanna FURRIER APPRENTICE LAB BLOOD ORDERABLES Final Result [facility] [address] [place] [address] * (ABNORMAL) Comprehensive Metabolic Panel, Plasma (01/29/2025 12:47 PM EDT) Glucose, Plasma 90 74 - 99 mg/dL 01/29/2025 7:01 PM EDT [facility] BUN, Plasma 10 7 - 21 mg/dL 01/29/2025 7:01 PM EDT [facility] Creatinine, Plasma 0.73 0.70 - 1.20 mg/dL 01/29/2025 7:01 PM EDT [facility] BUN/Creatinine Ratio 14 01/29/2025 7:01 PM EDT [facility] Sodium, Plasma 133(L) 136 - 145 mmol/L 01/29/2025 7:01 PM EDT [facility] Potassium, Plasma 4.1 3.6 - 4.9 mmol/L 01/29/2025 7:01 PM EDT [facility] Chloride, Plasma 93(L) 97 - 107 mmol/L 01/29/2025 7:01 PM EDT [facility] CO2, Plasma 30(H) 22 - 29 mmol/L 01/29/2025 7:01 PM EDT [facility] Anion Gap 10 6 - 16 mmol/L 01/29/2025 7:01 PM EDT [facility] Total Calcium, Plasma 9.5 8.9 - 10.2 mg/dL 01/29/2025 7:01 PM EDT [facility] Total Protein 7.6 6.3 - 7.9 g/dL 01/29/2025 7:01 PM EDT [facility] Albumin, Plasma 4.8 3.5 - 5.2 g/dL 01/29/2025 7:01 PM EDT [facility] AST, Plasma 21 10 - 50 U/L 01/29/2025 7:01 PM EDT [facility] ALT, Plasma 30 10 - 50 U/L 01/29/2025 7:01 PM EDT [facility] Alkaline Phosphatase, Plasma 90 40 - 115 U/L 01/29/2025 7:01 PM EDT [facility] Total Bilirubin, Plasma 0.4 0.2 - 1.1 mg/dL 01/29/2025 7:01 PM EDT [facility] eGFRcr 105.5 mL/min/1.7 3m*2 01/29/2025 7:01 PM EDT [facility] Comment:Reported eGFRcr in m L/min/1.73m2 is based the CKD-EPI 2020 equation that does not use a race coefficient. Blood Venous blood specimen / Unknown Venipuncture / Unknown 01/29/2025 12:47 PM EDT 01/29/2025 12:47 PM EDT us Leslie Hanna APRN LAB BLOOD ORDERABLES Final Result Performing Organization Address [facility] Co de Phone Number [facility] [address] [place] [address] * Hemoglobin A1c (01/29/2025 12:47 PM EDT) Hemoglobin A1c 5.6 <5.7 % 01/29/2025 10:37 PM EDT [facility] Blood Venous blood specimen / Unknown Venipuncture / Unknown 01/29/2025 12:47 PM EDT 01/29/2025 12:47 PM EDT Narrative [facility] - 01/29/2025 10:37 PM EDT HA1C Interpretive Data: Diagnosis of Diabetes: Diabetic > or = 6.5% Pre-diabetic 5.7 to 6.4% Non-diabetic < or = 5.6% Glycemic Targets for Type I and Type II Diabetics: Non- Adults <7.0% Adults <6.0% Children and Adolescents <7.5% Source: [place] [employer]. Standards of medical care in diabetes,2017. Diabetes Care.2017:40 (suppl 1):S1-S135. us Leslie Hanna APRN LAB BLOOD ORDERABLES Final Result Performing Organization Address [facility] Co de Phone Number [facility] [address] [place] [address] documented in this encounter Visit Diagnoses Diagnosis Annual physical exam- Primary Routine general medical examination at a health care facility Essential (primary) hypertension Unspecified essential hypertension Gastroesophageal reflux disease without esophagitis Esophageal reflux Erectile dysfunction, unspecified erectile dysfunction type Generalized anxiety disorder Hyponatremia Hyposmolality and/or hyponatremia Tubular adenoma Benign neoplasm of unspecified site Encounter for screening for malignant neoplasm of prostate Need for vaccination Need for prophylactic vaccination and inoculation against unspecified single disease Healthcare maintenance documented in this encounter Additional Health Concerns Assessment Noted Time PHQ-9 Depression Total Score: 6 01/30/20 25 11:41 AM EDT A fall risk assessment has been complete d for the patient 01/10/2024 8:28 AM EDT A Body Mass Index follow-up plan has been documented for the patient 01/31/2025 4:33 PM EST documented as of this encounter Care Teams [employer]op Driving Machine Operator Relationship Specialty Start Date End Date Leslie Hanna, JOHN [address] [place] [id number] PCP - General Family Medicine 07/11/23 documented as of this encounter
[2025-03-03] VITALS (14 sets, daily range): BP systolic 127–174; BP diastolic 79–99; PULSE 72–99; RESP 16–18; TEMP 36.4–37; O2SAT 94–100; BMI 34.0; BMI 33.8
--- OUTSIDE RECORDS SUMMARY | 2025-03-03 15:16 | XMS_ITS | Data Portability ---
Author Organization [facility] LORENA Page [place] CLOSED Address [address] [place] [address] Care Team Providers Care Recreation Attendant Name Role Phone JAMES PEDERSON Orthopedic Surgeon [phone] Assessment No assessment recorded. Plan of Treatment Reminders Order Date Submit Date Provider Last Modified By Organization Details Last Modified Time Details Appointments RECHEC K 2024 01:20P M JAMES PEDERSON MD Not available Not available Not available Lab None record ed. Referral None record ed. Procedures None record ed. Surgeries None record ed. Imaging CT, lower leg, w/o contra st - lookin g for possib le stress fractu re at pin site from TKA in left tibia 2024 025 NATHAN Not available 07/14/2024 16:41:36 XR, knee, 3 view - room 3 2024 025 [facility] [address] , [place], [address], 06/02/2024 15:44:18 XR, tibia + fibula 2024 025 [facility], [address] [place] [address] , [place], [address], 06/02/2024 15:03:02 Medication Orders meloxi cam 15 mg tablet 2024 025 [facility] 591[address], [place], [address], 12/01/2024 16:15:25 Bactri m DS 800 mg-160 mg tablet 2024 025 [facility] 591, [address], [place], [address], 12/01/2024 13:29:42 Patient TargetsNo targets recorded. Patient InstructionsNo instructions recorded. Reason for Referral None Reported. Results Created Date Observation Date Name Description Value Unit Range Abnormal Flag Note LastModifiedBy Organization Detail LastModifiedTime 05/21/19 25 05/21/2024 XR, knee, [address] [place] [address] Rodrigue alberto Name: SOCO alberto : 967 [...] Khloe emmanuel MD on 025 2:53 PM [email or web address] [facility] [address] , [place], [address], 05/21/2024 15:05:55 06/03/1906/02/2024 XR, tibia + fibul a [facility] Pauline me [address] [place] [address] Rodrigue alberto Name: SOCO alberto : 967 Rodrigue alberto 87 Orderi ng Provid er: LISA FREDERIC EXAM DATE: 2024 EXAM: XR LT TIB/FI [...] Khloe emmanuel MD on 06/03/19 2:57 PM [email or web address] [facility] [place] [address] , [place], [address], 06/05/2024 13:28:12 06/03/19 25 06/02/2024 XR, knee, 3 view [place] [facility] Pauline ga [address] [place], [place] [address] [phone] Rodrigue alberto Name: SOCO alberto : 967 Patiyinka alberto 87 Orderi ng Provid er: LISA FREDERIC EXAM DATE: 2024 EXAM: XR LT KNEE 3 VIEWS COMPAR CHELSEY: 025 HISTOR Y: Follow -up of prior surger y. TISHA GS: Again seen is a left [...] Khloe emmanuel MD on 06/03/19 3:39 PM [facility] [address] , [place], [address], 06/05/2024 13:28:12 07/08/19 25 07/07/2024 XR, tibia + fibul a [facility] [address] [place] [address] Rodrigue alberto Name: SOCO alberto : 967 Rodrigue alberto 87 Orderi ng Provid er: [facility] EXAM DATE: 2024 EXAM: XR [...] Khloe emmanuel MD on 07/08/19 2:55 PM [email or web address] [facility] [address] , [place], [address], 07/21/2024 08:19:12 07/08/1907/07/2024 XR, joint , multi ple, 1 view [facility] [address] [place] [address] [phone] Rodrigue alberto Name: SOCO alberto : 967 Rodrigue alberto 87 Orderi ng Provid er: [facility] EXAM DATE: 2024 EXAM: XR [...] Khloe emmanuel MD on 07/08/19 2:55 PM [email or web address] [facility] [place] [address] , [place], [address], 07/10/2024 12:43:09 07/15/1907/14/2024 CT, lower leg, w/o contr ast [address] [address] Patien t Name: SOCO Keller Patien t : 967 Patien t 87 Orderi ng Provid er: LISA MCFARLAND EXAM DATE: 2024 EXAM: CT LT [...] Khloe emmanuel MD on 025 4:36 PM [email or web address] [facility] [address] [place], [address], 07/15/2024 14:36:18 12/02/19 25 12/01/2024 XR, knee, 3 view [facility] [address] [place] [address] Patien t Name: SOCO FRIEDMAN Maurizio Husain t : 967 Patien t 87 Orderi ng Provid er: JAMES WALDROP EXAM DATE: 2024 EXAM: XR LT KNEE 3 VIEWS COMPAR CHELSEY: 025 HISTOR Y: Follow -up of prior surger rick GILES GS: Again seen is a left knee total arthro plasty . There is no eviden ce of loosen ing. No fractu re is identi fied. There is a large joint effusi on. Contra latera l knee: There are mild degene rative change s. IMPRES URBANO: 1. There is a left total knee arthro plasty in place withou t eviden ce of loosen ing. There is a large joint effusi on. Interp reted By: Khloe emmanuel MD Electr onical ly Signed By: Khloe emmanuel MD on 12/02/19 1:23 PM [email or web address] [facility] [address] [place], [address], 12/06/2024 07:36:07 Result Notes Documentation Provider Name and Address Organization Details Recorded Time Xr, Tibia + Fibula : [facility] [place] [address] [place] [address] Patient Name: SOCO JOHNSON Patient : 1965 Patient Ordering Provider: LISA MCFARLAND EXAM DATE: 06/02/2024 EXAM: XR LT TIB/FIB HISTORY: Follow-up of a left knee arthroplasty COMPARISON: Radiograph of the same date FINDINGS: There is a left knee arthroplasty in place. There is no evidence of loosening. No acute fracture is identified. There are postsurgical changes in the mid shaft of the tibia. IMPRESSION: 1. There is a left knee arthroplasty in place. Interpreted By: Denis Mcadams MD MCFARLAND PA-C [address] [place] [address], [phone], [facility] 06/05/2024 13:28:12 Xr, Knee, 3 View : [facility] [address] [place] [address] Patient Name: SOCO JOHNSON Patient : 1965 Patient Ordering Provider: LISA MCFARLAND EXAM DATE: 06/02/2024 EXAM: XR LT KNEE 3 VIEWS COMPARISON: 05/21/2024 HISTORY: Follow-up of prior surgery. FINDINGS: Again seen is a left knee total arthroplasty. There is mild lucency adjacent to the stem of the tibial component. No fracture is identified. There is anterior soft tissue swelling. Contralateral knee: There are mild degenerative changes. IMPRESSION: 1. There is a left total knee arthroplasty in place with mild lucency adjacent to the stem of the tibial component. Interpreted By: Denis Mcadams MD MCFARLAND PA-C [address] [place] [address], [phone], [facility] 06/05/2024 13:28:12 Xr, Tibia + Fibula : [facility] [address] [place] [address] Patient Name: SOCO JOHNSON Patient : 1965 Patient Ordering Provider: LISA MCFARLAND EXAM DATE: 07/07/2024 EXAM: XR LT TIB/FIB HISTORY: Left lower leg infection COMPARISON: None. FINDINGS: There is a left total knee arthroplasty in place. There is no evidence of loosening. The left tibia and fibula are normal in alignment. No acute fracture is identified. No acute periosteal thickening is seen. IMPRESSION: 1. There is a left knee arthroplasty in place. Interpreted By: Denis Mcadams MD MCFARLAND PA-C [address] [place] [address], [phone], [facility] 07/21/2024 08:19:12 Xr, Joint, Multiple, 1 View : [facility] [address] [place] [address] Patient Name: SOCO JOHNSON Patient : 1965 Patient Ordering Provider: LISA MCFARLAND EXAM DATE: 07/07/2024 EXAM: XR LONG LEG LEFT/ JOINT SURVEY COMPARISON: Radiograph of the same date HISTORY: Follow-up of prior surgery. FINDINGS: There is a left total knee arthroplasty in place. There is no evidence of loosening or complication. The mechanical axis of the left knee is normal. No fracture is identified. There are mild degenerative changes in the left hip and minimal degenerative changes in the ankle. IMPRESSION: 1. There is a left knee arthroplasty in place without evidence of complication. Interpreted By: Denis Mcadams MD MCFARLAND PA-C [address] [place] [address], [phone], [facility] 07/10/2024 12:43:09 Ct, Lower Leg, W/o Contrast : [address] [address] Patient Name: SOCO JOHNSON Patient : 1965 Patient Ordering Provider: LISA MCFARLAND EXAM DATE: 07/14/2024 EXAM: CT LT TIB-FIB/CALF WITHOUT CONTRAST HISTORY: 58-year-old male with a soft tissue mass along the anterior aspect of the left lower leg. COMPARISON: 07/07/2024 TECHNIQUE: 1.0 mm axial direct images were obtained through the left tibia and fibula, and computer generated coronal, sagittal, and reformatted axial sequences were generated from the source images. FINDINGS: The left tibia and fibula are normal in alignment. No fracture is identified. There are mild degenerative changes in the ankle. There is a left total knee arthroplasty in place. There is no evidence of loosening of the arthroplasty. There is soft tissue prominence along the anterior margin of the tibial shaft. This is immediately adjacent to a postsurgical cortical defect made in the tibia. This measures approximately 1.5 cm craniocaudad, 1.5 cm transverse and 5 mm in thickness. There is mildly increased attenuation in the anterior aspect of the adjacent intramedullary space. The muscles of the left lower leg appear normal. There is no focal fatty infiltration or atrophy. No tendon tear is identified. IMPRESSION: 1. There is focal soft tissue prominence along the anterior margin of the left tibial shaft which is immediately adjacent to 2 postsurgical cortical defects made in the tibia. There is also mildly increased attenuation in the anterior aspect of the adjacent intramedullary space. There is soft tissue prominence could represent scarring, but an infection extending into the adjacent bone cannot be excluded. Interpreted By: Denis Mcadams MD Liz king [facility] 07/15/2024 14:36:18 Xr, Knee, 3 View : [facility] [address] [place] [address] Patient Name: SOCO JOHNSON Patient : 1965 Patient Ordering Provider: JAMES PEDERSON EXAM DATE: 12/01/2024 EXAM: XR LT KNEE 3 VIEWS COMPARISON: 07/14/2024 HISTORY: Follow-up of prior surgery. FINDINGS: Again seen is a left knee total arthroplasty. There is no evidence of loosening. No fracture is identified. There is a large joint effusion. Contralateral knee: There are mild degenerative changes. IMPRESSION: 1. There is a left total knee arthroplasty in place without evidence of loosening. There is a large joint effusion. Interpreted By: Denis Mcadams MD S PEDERSON MD [address] [place] [address], [phone], [facility] 12/06/2024 07:36:07 Problems Name Problem SNOMED Code Status Onset Date Resolution Date Notes Provider Name and Address Organization Details Recorded Time Pain of left knee joint 5718774038091 07 Active 2023 ROBERT GAITAN, PT, DPT [address] [place] [address], [phone], [facility] 4 14:18:00 Osteoarthri tis of left knee joint 9535979849531 09 Active 2023 ROBERT GAITAN, PT, DPT [address] [place] [address], [address], [facility] 4 14:18:01 History of left total knee replacement 4541745473675 105 Active 2024 JAMES KOEHLER MD [address] [place] [address], [phone], [facility] 5 13:59:36 Problem Notes None recorded. Procedures Surgical History Date Name Laterality Status Provider Name and Address Organization Details Recorded Time I&D Hematoma, Seroma or Fluid Collection completed LISA MCFARLAND PA-C [address] [place], [address], [facility] 06/30/2024 12:24:55 5 total replacement of left knee joint completed Blanquita Saenz [facility] 04/30/2024 08:22:45 5 PCM Visit completed Miatammy Mccray [facility] 04/07/2024 15:29:36 4 PT Evaluation - Low Complexity completed ROBERT GAITAN, PT, DPT [address] [place], [address], [facility] 03/31/2024 14:16:18 4 PT Therapeutic Exercise completed ROBERT GAITAN, PT, DPT [address] [place], [address], [facility] 03/31/2024 14:17:47 4 Aspiration Joint/Bursa, Major completed DULCE MINAYA PA-C [address] [place], [address], [facility] 01/29/2024 12:37:10 4 arthroscopy of knee completed Liz Gary [facility] 01/29/2024 11:11:26 Orthopedic Surgery completed Liz Gary [facility] 01/29/2024 11:13:06 Imaging Results None recorded. Procedure Notes None recorded. Medical Equipment None Reported. Allergies Allergen ID Allergen Name Allergen Category Reaction Reaction Severity Criticality Documentation Date Start Date Code Code System Note Provider Name and Address Organization Details Recorded Time 275841 Product containin g penicilli n (product) medicatio n Not available Not available Not available 01/29/2024 59441 8001 SNOMED HAROLDO ASENCIO MD [address] [place], [address] , [facility] 5 14:20:36 190161 acetamino phen / oxycodone medicatio n Not available Not available Not available 01/29/2024 14340 3 RxNorm Liz Gary [facility] 4 11:09:45 Medications Name Sig Start Date Stop Date Status Note LastModified by Organization Details LastModified Time Colace 100 mg capsule Take 1 capsule twice a day by oral route for 14 days, for constipat ion. 12/01 completed Not Available Not Available Not Available hydrocodone 5 mg-acetamin ophen 325 mg tablet Take 1 tablet every 6 hours by oral route. 06/02 completed Not Available Not Available Not Available enalapril maleate 20 mg tablet Take 2 tablets every day by oral route. active Not Available Not Available No t Available meloxicam 15 mg tablet Take 1 tablet every day by oral route as needed, for inflammat ion. 12/01 completed Not Available Not Available Not Available [...] tablet every 6 hours by oral route. 12/01 completed Not Available Not Available Not Available cefadroxil 500 mg capsule Take 1 capsule [...] hours by oral route for 10 days. 12/01 completed Not Available Not Available Not Available Lyrica 75 mg capsule Take 1 capsule [...] Updated DateTime 06/02/2024 175.26 cm 32.5 kg/m2 84188.32 g 4 Blanquita Saenz [facility] 06/02/2024 13:49:04 Date Recorded Body height Body mass index (BMI) Body weight Provider Name and Address Organization Details Last Updated DateTime 06/30/2024 175.26 cm 32.5 kg/m2 49095.32 g [facility] 06/30/2024 11:27:20 Date Recorded Body height Body mass index (BMI) Body weight Provider Name and Address Organization Details Last Updated DateTime 07/07/2024 175.26 cm 32.5 kg/m2 55870.32 g [facility] 07/07/2024 14:42:54 Date Recorded Body height Body mass index (BMI) Body weight Pain severity - 0-10 verbal numeric rating [Score] - Reported Provider Name and Address Organization Details Last Updated DateTime 07/30/2024 175.26 cm 32.5 kg/m2 71629.32 g Elzbieta Quan [facility] 07/30/2024 13:49:43 Date Recorded Body height Body mass index (BMI) Body weight Pain severity - 0-10 verbal numeric rating [Score] - Reported Provider Name and Address Organization Details Last Updated DateTime 12/01/2024 175.26 cm 32.5 kg/m2 26536.32 g [address] Blanquita Sa[address] [facility] 12/01/2024 13:28:13 Social History Question Answer Notes LastModified by Organizat ion Details LastModified Time Tobacco Smoking Status Never Smoker Blanquita Saenz [facility] 04/30/2024 08:22:33 What Was The Date Of Your Most Recent Tobacco Screening? 12/01/2024 Information not available 12/01/2024 Has Tobacco Cessation Counseling Been Provided? No [email or web address] Information not available 04/30/2024 Sex: Male Functional Status Question Answer Note LastModified by Organizat ion Details LastModified Time Do you use any illicit or recreational drugs? No [email or web address] Information not available 04/30/2024 Do you or have you ever used any other forms of tobacco or nicotine? No [email or web address] Information not available 04/30/2024 What is your level of alcohol consumption? None [email or web address] Information not available 04/30/2024 Mental Status None recorded. Family History Nothing [...] Pulmonary Embolism N Chicken Pox N Anxiety/Depression Y Thyroid Disease N Hernia N Glaucoma N Lung Disease N Hypothyroidism N Nasal or Sinus Problems N Pacemaker [...] N Immune System Disorder N Heart Attack (AL) N Mental Illness N Neurological Problems N Psychiatric Illness N Diabetes N Seizures/Epilepsy N Hyperlipidemia N Hepatitis B N Rubella N Epilepsy/Seizures N Reflux/GERD Y Sleep Apnea N Heart Disease N Hypertension Y Osteoporosis N Immunizations Vaccine Type Date Status Note Provider Jodran mata and Address Organization Details Recorded Time Tdap 2 completed Blanquita Saenz [facility] 12/01/2024 13:28:18 influenza, seasonal, intradermal, preservative free 5 completed Blanquita Saenz [facility] 12/01/2024 13:28:18 Past Encounters Encounter ID Performer Location Encounter Start Date Encounter Closed Date Diagnosis/Indication Diagnosis SNOMED-CT Code Diagnosis ICD10 Code Diagnosis IMO Codes Diagnosis Note [id number] DULCE MINAYA PA-C [facility] [address] [place] [address] 01/29/2024 10:38:11 01/29/2024 12:14:20 Osteoarthritis of left knee joint [id number] 66249 M17.12 ASSESSMENT : Left knee pain, second opinion. PLAN: Hernán is a very pleasant 58-year-ol d gentleman who presents today for left knee evaluation and a second opinion. He has a rather extensive orthopedic history. He has been under the care at the [facility] with Dr. Lopez where he underwent a left knee arthroscop y with partial medial meniscecto my on 09/18/2023. Following this, he reports that symptoms remained. He was then set to undergo once again a left knee arthroscop y on 01/19/2024 but this was canceled due to insurance purposes. Knee aspiration s with fluid analysis in the past have been unremarkab le. He has underwent multiple MRIs, Synvisc 1 injections , steroid injections , and knee aspiration s. He has also trialed and failed numerous over-the-c ounter medication s, topical regimens, physical therapy, and bracing. He also trialed diclofenac in the past and had to stop this due to GI upset. He reports of primarily medial based knee pain. He has always suffered from significan t swelling. Typically, symptoms are exacerbate d during any type of activity such as walking or standing. He endorses occasional crepitus. He denies pain at rest but does have pain at night that keeps him from sleeping. He is unable to perform his normal activities of daily living and is here today to seek other options. We discussed patients findings of left knee end stage osteoarthr itis (OA) today. We discussed that OA is the most common form of arthritis and the degenerati ve, progressiv e nature of OA that can worsen over time, often resulting in chronic pain and stiffness. We discussed how OA is often known as the wear and tear disease and causes breakdown of the cartilage that cushions the ends ofthe bones in their joints. We discussed common OA symptoms including pain, stiffness, tenderness , aching, loss of flexibilit y, grating sensation, bone spurs, swelling, night time pain, and more. We discussed that we can usually manage them with conservati ve treatments . We discussed these conservati ve treatments today including- staying active, maintainin g a healthy weight, formal physical therapy, exercise, rest/ice/c ompress/el evate (RICE methods), anti- inflammato keanu (NSAIDs), topical gels/cream s, CBD creams/gum mies, natural supplement s, bracing, cortisone injections , and viscosuppl ementation . Additional ly, we discussed a total joint replacemen t and reviewed surgical expectatio ns, physical therapy expectatio ns post operativel y, and reviewed risks and benefits of surgery. Patient verbalized understand ing and elected to proceed with surgical discussion today.I will have him make an appointmen t with Dr. Li to discuss surgery along with risks and benefits. 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 The patient has failed > 3 months of conservati ve measures including NSAIDs, activity modificati on, corticoste roid injections , etc. The patient has pain daily, affecting his/her activities of daily living, and interferin g with sleep. They wish to proceed with total knee arthroplas ty, which I believe to be reasonable . Per ACR/AAHKS guidelines , arthroplas ty in patients with moderate to severe arthritis should not be delayed simply to engage in additional nonoperati ve treatment options. We reviewed the risks, benefits, and alternativ es to knee replacemen t surgery. We discussed the risk of infection, fracture, neurovascu lar injury, chronic pain, stiffness, instabilit y, aseptic loosening, and component wear. We discussed the risk of medical complicati ons, including but not limited to, VTE, pulmonary complicati ons, cardiac complicati ons, and stroke. All questions were answered to the best of my ability. The patient expresses understand ing and awareness of PCM services, including but not limited to potential cost sharing responsibi lities; only one [facility] er can furnish and bill for PCM services during a calendar month, and the patient can stop these services at any time. The patient understand s and has verbally consented to accept PCM services and has been provided a copy of a written explanatio n of this service today. [facility]: [facility] location[facility] ASCSpecial equipment: Robotic Stephen , press-fitP re-op clearance: Ada Simon medical clearance: DVT prophylaxi s: ASA, TEDAdmissi on status: OUTPATIENT Discharge plan: no/SDS admissionP T: KORT Allergies: PCNSkin testing: Yes [id number] EARNESTINE GRADY PA-C [facility] [address] [facility] [place] [address] 03/31/2024 13:49:46 03/31/2024 14:48:45 Pre-surgery evaluation [id number] Z01.818 Chronic conditions appear stable. Preoperati ve lab work reviewed with the patient. Any modifiable risk factors discussed. No indication for any additional labs or testing at this time. Continue with planned joint arthroplas ty. Discussed postoperat viv plan for physical therapy. All questions answered to the best of my ability. Allergy to penicillin 91 717884 Z88.0 Systemic rash after penicillin use when younger. We will send for allergy testing to ensure he is safe for cephalospo rins postoperat ively. Alcohol in take above recommended sensible limits [id number] F10.10 4-5 drinks/day , recommend weaning prior to surgery. We discussed risks of respirator y suppressio n with use of both narcotics and alcohol postoperat ively. Hyponatremia [id number] E8 7.1 Sodium 132, asymptomat ic. Likely related to high alcohol intake. We will notify PCP to understand baseline and see if they have any recommenda tions for adjustment . Essential hypertension 68381500 I10 On enalapril and Norvasc, will hold enalapril the day of surgery. [id number] MACIE AGUIRRE, PT, DPT PHYSICAL THERAPY / HAND THERAPY [facility] [address] [place] [address] 03/31/2024 13:48:23 04/01/2024 04:40:01 Pain of left knee joint 2900185970 09203 M25.562 Osteoarthr itis of left knee joint 4309212751 87460 M17.12 [id number] HAROLDO ASENCIO MD [facility]ER[facility] [address] [facility] ,[address] [place] [address] 04/08/2024 11:28:13 04/14/2024 12:52:05 Allergy to penicillin [id number] T36.0X5A #History of Penicillin Allergy, Resolved- The patient underwent standardiz ed penicillin skin testing today in clinic and was negative to all tested reagents with appropriat e positive and negative controls.- A graded dose challenge was performed to amoxicilli n with 25mg PO, 30 minute wait, 250mg PO, and a 31 minute wait (for a total of 61 minutes) with no signs and symptoms of an allergic reaction.- The patient is not allergic to penicillin . The medical record has been updated reflect this. The patient is clear to receive this medication without further testing, challenge dosing, or desensitiz ation. RTC PRN. Opioid lloyd lgesic adverse reaction [id number] T40.2X5A #Adverse Reaction to Opioid - Percocet- the patient can continue to avoid this particular drug, but I would not prohibit them from other opioids on this basis alone. [id number] JAMES Keller MD [facility] [address] [address] 04/02/2024 14:30:04 04/13/2024 10:35:57 Osteoarthritis of knee [id number] M17.12 Hernán was seen by Dr Ángel keller where surgical plan was discussed and finalized for left total knee arthroplas ty on 04/10/24 [id number] JAMES Keller MD SURGERY SCHEDULE [address] [place] [address] 04/10/2024 10:16:07 04/10/2024 10:16:56 [id number] DULCE MINAYA PA-C [facility] [address] [place] [address] [place] [address] 04/30/2024 08:12:54 04/30/2024 08:52:39 History of total knee arthroplasty [id number] 105 Z96.652 Hernán is now 3 weeks [...] He will transition outpatient physical therapy in [place] . Reviewed 3 weeks instructio ns, answered [...] post op follow up with radiograph s. [id number] DULCE MINAYA PA-C [facility] [address] [place] [address] [place] [address] 05/21/2024 14:25:41 05/21/2024 15:04:17 History of total knee arthroplasty [id number] 105 Z96.652 Hernán is now 6 weeks [...] on. RTC in 6-8 weeks with LLXR. [id number] LISA MCFARLAND PA-C [facility] [address] [place] [address] 06/02/2024 13:39:21 06/02/2024 15:11:13 History of left total knee replacement [id number] 902518 Z96.652 Assessment : LTKA 7 weeks, pinsite infection Continue cephalexin , chrolexhad ine washes, keep dry and clean, scar mobilizati onFollow up in 1 month or sooner if worsening symptoms. I think most will resolve with time and as the suture continues to break down. Radiograph s remain reassuring no fracture or stress fracture at pin sites. [id number] LISA MCFARLAND PA-C [facility] [address] [place] [address] 06/30/2024 11:18:58 06/30/2024 13:13:19 History of left total knee replacement [id number] 593848 Z96.652 Assessment : LTKA 04/10/24 pinsite infection [...] 1 week, repeat tib fib radiograph s [id number] ELLEN MONTANOI MIK[facility] [address] [place] [address] 07/07/2024 14:24:58 07/09/2024 04:18:08 Stress fracture of left tibia [id number] M84.362A Out of extreme precaution and since [...] Li History of left total knee replacement 9402452410 059275 Z96.652 [id number] JAMES Keller MD [facility] [address] [place] [address] 07/30/2024 12:54:21 07/30/2024 14:36:10 History of left total knee replacement [id number] 869969 Z96.652 [id number] ASSESSMENT : 4 months left robotic TKA PLAN: Overall, Hernán is doing very well. TKA appears normal radiograph ically, and clinically . His effusion is fairly normal at this point, we would expect it to resolve with time. Will order some meloxicam to help control those symptoms. He can also try compressio n sleeve. With regards to his tibial pain, multiple imaging modalities do not reveal any evidence of complicati on. His symptoms appear to be improving. There is no clinical evidence of infection. We can consider inflammato ry markers, but my suspicion is so low that I do not even feel compelled to do that today. Hernán is generally in agreement with this plan. No restrictio ns going forward. He may return to work. Follow-up in 1 year for routine clinical and radiograph ic examinatio n. Call earlier with any change or worsening symptoms. [id number] JAMES Keller MD [facility] [address] [facility] [place] [address] 12/01/2024 13:09:08 12/01/2024 13:57:50 History of left total knee replacement [id number] Z96.652 [id number] ASSESSMENT : 8 months left robotic TKA PLAN:Overa ll, Hernán is doing very well. TKA appears normal radiograph ically, and clinically . His effusion is fairly normal at this point, we would expect it to resolve with time. He can continue with ibuprofen as needed, and his compressio n sleeve. With regards to his tibial pain, multiple imaging modalities do not reveal any evidence of complicati on. His symptoms appear to be improving. There is no clinical evidence of infection. We can consider inflammato ry markers, but my suspicion is so low that I do not even feel compelled to do that today. Hernán is generally in agreement with this plan. No restrictio ns going forward. He may return do normal activities without restrictio n. Follow-up in 6 months for routine clinical and radiograph ic examinatio n. Call earlier with any change or worsening symptoms. Health Concerns Section Related Observation LastModified by Organization Detai ls LastModified Time None Recorded Concern Status LastModified by Organization Details LastModified Time None Recorded Advance Directives Directive None Recorded Payers Insurance Date Sequence Insurance Name Policy Number Policy Denis Covered Member ID Denis Member ID Guarantor Name 11/30/2024 1 [place] [id number] [place] [employer] [id number] [employer] Notes Date Note Type Note Provider Name and Address Organization Details Recorded Time 06/02/2024 text/html 06/02/24Patient is 7.5 weeks s/p L TKA. s/p 04/10/24.Pain is worse left lower leg swelling and redness.Currently taking 3-4 doses per day of narcotic, Tramadol 50mg.Ambulating with canePT: outpatient [facility] in [place], [place]. Denies fevers, chills, or wound drainage.They do not request a refill of pain medicine. LISA MCFARLAND PA-C [address] [place] [address], [address], [facility] 06/02/2024 16:33:33 06/30/2024 text/html 06/30/24Patient is 11.5 weeks s/p L TKA on 04/10/24.Pain is worseCurrently taking <3 doses per day of narcotic, Tramadol 50mg.Ambulating with no assistive devicePT: outpatient [facility] in [place]. Denies fevers, chills, or wound drainage.They do request a refill of pain medicine.Patient returns for incision check. 06/02/24Patient is 7.5 weeks s/p L TKA. s/p 04/10/24.Pain is worse left lower leg swelling and redness.Currently taking 3-4 doses per day of narcotic, Tramadol 50mg.Ambulating with canePT: outpatient [facility] in [place], [place]. Denies fevers, chills, or wound drainage.They do not request a refill of pain medicine. 1-74-95Ufnokpa is 6 weeks s/p L TKA. s/p 04/10/24.Pain is sameCurrently taking 4 doses per day of narcotic, Hydrocodone 5/325mg.Ambulating with canePT: outpatient [facility] in [place]. Denies fevers, chills, or wound drainage.They do not request a refill of pain medicine. 5-22-96Urbtbfb is 3 weeks s/p L TKA. s/p 04/10/24.Pain is improvingCurrently taking (q 4 hours) 6 doses per day of narcotic, Hydrocodone 7.5/325mg.Ambulating with canePT: home health starts on Saturday for Outpatient PT at [facility] in [place], [place]. Denies fevers, chills, or wound drainage.They do request a refill of pain medicine. LISA MCFARLAND PA-C [address] [place], [address], [facility] 06/30/2024 12:25:22 07/07/2024 text/html 07/07/24Patient is 13 weeks s/p L TKA on 04/10/24.Pain is sameCurrently taking doses per day of narcotic, Tramadol 50mg.Ambulating with no assistive devicePT: outpatient [facility] in [place], [place]. Denies fevers, chills, or wound drainage.They do request a refill of pain medicine.Patient returns for incision check. 06/30/24Patient is 11.5 weeks s/p L TKA on 04/10/24.Pain is worseCurrently taking <3 doses per day of narcotic, Tramadol 50mg.Ambulating with no assistive devicePT: outpatient [facility] in [place]. Denies fevers, chills, or wound drainage.They do request a refill of pain medicine.Patient returns for incision check. 06/02/24Patient is 7.5 weeks s/p L TKA. s/p 04/10/24.Pain is worse left lower leg swelling and redness.Currently taking 3-4 doses per day of narcotic, Tramadol 50mg.Ambulating with canePT: outpatient [facility] in [place]. Denies fevers, chills, or wound drainage.They do not request a refill of pain medicine. 5-36-74Uifqebq is 6 weeks s/p L TKA. s/p 04/10/24.Pain is sameCurrently taking 4 doses per day of narcotic, Hydrocodone 5/325mg.Ambulating with canePT: outpatient [facility] in [place]. Denies fevers, chills, or wound drainage.They do not request a refill of pain medicine. 8-33-98Rmkuhbn is 3 weeks s/p L TKA. s/p 04/10/24.Pain is improvingCurrently taking (q 4 hours) 6 doses per day of narcotic, Hydrocodone 7.5/325mg.Ambulating with canePT: home health starts on Saturday for Outpatient PT at [facility] in [place], [place]. Denies fevers, chills, or wound drainage.They do request a refill of pain medicine. LISA MCFARLAND PA-C [address] [place], [address], [facility] 07/08/2024 08:32:17 07/30/2024 text/html ROS as noted in the HPI 07-30-24Hernán returns today in follow-up for his robotic left TKA. He is now approaching 4 months out from surgery. He is really doing well, but has struggled with issues over his tibial pin site. His physical therapist opened up what appeared to be either a superficial infection or suture abscess. We have been following him fairly closely since then. We extended his oral antibiotics, but there has generally been no convincing sign of infection. While he continues to do very well in terms of the knee itself, he has struggled a bit with tibial pain. We have gotten multiple images, including full-length tib-fib films, and a CT scan, which have generally been unrevealing. At his last visit, Lisa had also ordered a tall walking boot, which Hernán did try for a couple of weeks. He did not feel that it conferred much benefit. Fortunately today, he states that his symptoms do seem to be improving. He has minimal pain with weightbearing, and is ready get back to work. He does have some effusions with extended activity and near the end of the day, but this is not associated with much pain. He otherwise denies fevers, chills, or wound drainage. Overall, he is pleased with his progress. 07/07/24Patient is 13 weeks s/p L TKA on 04/10/24.Pain is sameCurrently taking doses per day of narcotic, Tramadol 50mg.Ambulating with no assistive devicePT: outpatient [facility] in [place], [place]. Denies fevers, chills, or wound drainage.They do request a refill of pain medicine.Patient returns for incision check. 06/30/24Patient is 11.5 weeks s/p L TKA on 04/10/24.Pain is worseCurrently taking <3 doses per day of narcotic, Tramadol 50mg.Ambulating with no assistive devicePT: [facility] [place] [place]. Denies fevers, chills, or wound drainage.They do request a refill of pain medicine.Patient returns for incision check. 06/02/24Patient is 7.5 weeks s/p L TKA. s/p 04/10/24.Pain is worse left lower leg swelling and redness.Currently taking 3-4 doses per day of narcotic, Tramadol 50mg.Ambulating with canePT: [facility] [place] [place]. Denies fevers, chills, or wound drainage.They do not request a refill of pain medicine. 6-81-14Uboirtj is 6 weeks s/p L TKA. s/p 04/10/24.Pain is sameCurrently taking 4 doses per day of narcotic, Hydrocodone 5/325mg.Ambulating with canePT: [facility] [place]. Denies fevers, chills, or wound drainage.They do not request a refill of pain medicine. 9-81-33Iseagjj is 3 weeks s/p L TKA. s/p 04/10/24.Pain is improvingCurrently taking (q 4 hours) 6 doses per day of narcotic, Hydrocodone 7.5/325mg.Ambulating with canePT: home health starts on Saturday for Outpatient PT at [facility] in [place]. Denies fevers, chills, or wound drainage.They do request a refill of pain medicine. JAMES PEDERSON MD [address] [place], [address], [facility] 08/01/2024 14:12:34 12/01/2024 text/html ROS as noted in the HPI 12-01-24Scott returns today in follow-up. He is now 8 months out from his left robotic TKA. Overall, he is doing well. He still continues to have a fairly persistent effusion, and some mild pain. He feels like this is worse after prolonged periods of sitting. He travels to [place] regularly for work, and uses this is an example of an exacerbating activity. He does use his compression sleeve regularly, which he does admit helps. Otherwise, he is ambulating with no assistive device. He is not taking regular NSAIDs, but does take ibuprofen intermittently. He denies fevers, chills, or wound drainage. He denies any subjective instability. Of note, most of the tibial pain he was having in his pin site has largely dissipated. 07-30-24Scmary kate returns today in follow-up for his robotic left TKA. He is now approaching 4 months out from surgery. He is really doing well, but has struggled with issues over his tibial pin site. His physical therapist opened up what appeared to be either a superficial infection or suture abscess. We have been following him fairly closely since then. We extended his oral antibiotics, but there has generally been no convincing sign of infection. While he continues to do very well in terms of the knee itself, he has struggled a bit with tibial pain. We have gotten multiple images, including full-length tib-fib films, and a CT scan, which have generally been unrevealing. At his last visit, Lisa had also ordered a tall walking boot, which Hernán did try for a couple of weeks. He did not feel that it conferred much benefit. Fortunately today, he states that his symptoms do seem to be improving. He has minimal pain with weightbearing, and is ready get back to work. He does have some effusions with extended activity and near the end of the day, but this is not associated with much pain. He otherwise denies fevers, chills, or wound drainage. Overall, he is pleased with his progress. 07/07/24Patient is 13 weeks s/p L TKA on 04/10/24.Pain is sameCurrently taking doses per day of narcotic, Tramadol 50mg.Ambulating with no assistive devicePT: outpatient [facility] in [place]. Denies fevers, chills, or wound drainage.They do request a refill of pain medicine.Patient returns for incision check. 06/30/24Patient is 11.5 weeks s/p L TKA on 04/10/24.Pain is worseCurrently taking <3 doses per day of narcotic, Tramadol 50mg.Ambulating with no assistive devicePT: outpatient [facility] in [place]. Denies fevers, chills, or wound drainage.They do request a refill of pain medicine.Patient returns for incision check. 06/02/24Patient is 7.5 weeks s/p L TKA. s/p 04/10/24.Pain is worse left lower leg swelling and redness.Currently taking 3-4 doses per day of narcotic, Tramadol 50mg.Ambulating with canePT: [facility] [place]. Denies fevers, chills, or wound drainage.They do not request a refill of pain medicine. 0-02-53Helamel is 6 weeks s/p L TKA. s/p 04/10/24.Pain is sameCurrently taking 4 doses per day of narcotic, Hydrocodone 5/325mg.Ambulating with canePT: [facility] [place]. Denies fevers, chills, or wound drainage.They do not request a refill of pain medicine. 9-25-68Nvrpfir is 3 weeks s/p L TKA. s/p 04/10/24.Pain is improvingCurrently taking (q 4 hours) 6 doses per day of narcotic, Hydrocodone 7.5/325mg.Ambulating with canePT: home health starts on Saturday for Outpatient PT at [facility] in [place], [place]. Denies fevers, chills, or wound drainage.They do request a refill of pain medicine. JAMES PEDERSON MD [address] [place], [address], [place] [facility] 12/01/2024 13:59:50
--- OUTSIDE RECORDS SUMMARY | 2025-03-03 15:16 | XMS_ITS | Clinical Summary ---
[facility] Address [address] [place] [id number] Care Team Providers Care Procedures Rn Name Role Phone Onelia Benavides APRN Primary [...] or Tdap) 11/11/2031 11/10/2021, 03/15/2016, 05/28/2014 Insurance [facility] PPO Care Teams Procedures Rn Relationship Specialty Start Date End Date Onelia Benavides APRN [address] [place], [place] [id number] PCP - General Nurse Practitioner 08/22/22
--- OUTSIDE RECORDS SUMMARY | 2025-03-03 15:16 | XMS_ITS | Encounter Summary ---
Author Organization Healthcare Address [address] [place] [address] Care Team Providers Care Back Tender Paper Machine Name Role Phone Onelia Benavides APRN Primary Care Provider [phone] Leslie Hanna APRN Primary Care Provider [phone] Encounter Details Date Type Department Care Team (Late st Contact Info) Description 03/12/2023 Orders Only External Location [address] [place] [address] Teddy Pierson MD [address] [place] [address] [place] [address] Social History Tobacco Use Types Packs/Day Years [...] 7:10 PM EST us Teddy Pierson MD [facility] PROCEDURES Final Result documented in this encounter Visit Diagnoses Not on filedocumented in this encounter Additional Health Concerns Assessment Noted Time A fall risk assessment has been complete d for the patient 09/28/2021 9:09 AM EDT A Body Mass Index follow-up plan has been documented for the patient 09/18/2022 3:36 PM EDT documented as of this encounter Care Teams Back Tender Paper Machine Relationship Specialty Start Date End Date Onelia Benavides, MONOTYPE OPERATOR [address] [place] [id number] PCP - General Family Medicine 09/28/21 07/10/23 Leslie Hanna APRN [address] [place] [address] PCP - General Family Medicine 07/11/23 documented as of this encounter
--- OUTSIDE RECORDS SUMMARY | 2025-03-03 15:16 | XMS_ITS | Encounter Summary ---
Author Organization [facility] Address [address] [place] [address] Care Team Providers Care Chief Dog License Inspector Name Role Phone Leslie Hanna APRN Primary Care Provider [phone] Reason for Referral * Medications - Authorized Specialty Diagnoses / Procedures Referred By Kayode t Referred To Contact Diagnoses Obesity (BMI 30.0-34.9) Essential (primary) hypertension Hypercholesterolemia Leslie Hanna APRN [address] [place] [address] Phone: tel: fax: Referral ID Status Reason Start Date Expiration Date V isits Requested Visits Authorized [id number] Authorized 01/05/2025 09/02/2025 1 1 Encounter Details Date Type Department Care Team (Late st Contact Info) Description 02/01/2025 Orders Only [facility] [address] [place] [address] Leslie Hanna APRN [address] [place] [address] Obesity (BMI 30.0-34.9) (Primary Dx); Essential (primary) hypertension; Hypercholesterolemia Social History Tobacco Use Types Packs/Day Years [...] time in the past 12 m [facility], were you homeless or living in a skilled nursing (including now)? No 01/26/2025 [facility] Utilities Answer Date Recorded In the past [...] on file documented as of this encounter Visit Diagnoses Diagnosis Obesity (BMI 30.0-34.9)- Primary Essential (primary) hypertension Unspecified essential hypertension Hypercholesterolemia Pure hypercholesterolemia documented in this encounter Additional Health Concerns Assessment Noted Time PHQ-9 Depression Total Score: 6 01/30/20 25 11:41 AM EDT A fall risk assessment has been complete d for the patient 01/10/2024 8:28 AM EDT A Body Mass Index follow-up plan has been documented for the patient 01/31/2025 4:33 PM EST documented as of this encounter Care Teams Chief Dog License Inspector Relationship Specialty Start Date End Date Leslie Hanna APRN [address] [place] [address] PCP - General Family Medicine 07/11/23 documented as of this encounter
--- OUTSIDE RECORDS SUMMARY | 2025-03-03 15:16 | XMS_ITS | Encounter Summary ---
Author Organization Healthcare Address [address] [place] [address] Care Team Providers Care Insurance Loss Control Surveyor Name Role Phone Leslie Hanna APRN Primary Care Provider [phone] Encounter Details Date Type Department Care Team (Latest Contact Info) Description 01/29/2025 Travel Social History Tobacco Use Types Packs/Day Years [...] any time in the past 12 m [facility], were you homeless or living in a longterm (including now)? No 01/26/2025 [facility] Utilities Answer Date Recorded In the past [...] on file documented as of this encounter Functional Status * Over the [...] Health Questionnaire-2 Score 0 01/01 11:41 AM EDRenetta De Dios * Question Answer Date of Assessment Author Trouble falling or staying a sleep, or sleeping too much Several days 01/29/2025 11:41 AM Renetta Cortes Feeling tired or having fernando le energy Several days 01/29/2025 11:41 AM Renetta Cortes Poor appetite or overeating Several days 01/29/2025 11 :41 AM Renetta Cortes Feeling bad about yourself - or that you are a failure or have let yourself or your family down Several days 01/29/2025 11:41 AM Renetta Cortes Trouble concentrating on thi ngs, such as reading the newspaper or watching television Several days 01/29/2025 11:41 AM Renetta Cortes Moving or speaking so slowly that other [...] Wish to be (Past 1 Month) No 11:41 AM Renetta Cortes 2. Non-Specific Active Suici fatmata Thoughts (Past 1 Month) No 01/29/2025 11:41 AM Renetta Cortes 6. Suicidal Behavior (Lifetime) No 11:41 AM Renetta Cortes documented as of this encounter Plan of Treatment Not on file documented as of this encounter Visit Diagnoses Not on filedocumented [...] documented as of this encounter Care Teams Insurance Loss Control Surveyor Relationship Specialty Start Date End Date Leslie Hanna, LOGISTICS PLANNER [address] [place] [id number] PCP - General Family Medicine 07/11/23 documented as of this encounter
--- OUTSIDE RECORDS SUMMARY | 2025-03-03 15:16 | XMS_ITS | Encounter Summary ---
Author Organization Healthcare Address [address] [place] [address] Care Team Providers Care Acute Care Registered Nurse Name Role Phone Leslie Hanna APRN Primary Care Provider [phone] Encounter Details Date Type Department Care Team (Latest Contact Info) Description 01/26/2025 Travel Social History Tobacco Use Types Packs/Day Years Used Date Smoking Tobacco: Never Passive Smoke Exposure: Never Smokeless Tobacco: Current Snuff, Chew Alcohol Use Standard Drinks/Week Comments Yes 4 (1 standard drink = 0.6 oz pur e alcohol) PHQ-2 Answer Date Recorded Patient Health Questionnaire-2 Score 0 04/07/2024 PHQ-9 Answer Date Recorded Patient Health Questionnaire-9 Score 1 04/07/2024 Humiliation, Afraid, Rape, and Kick questionnair e [...] any time in the past 12 m [facility], were you homeless or living in a care home (including now)? No 01/26/2025 [facility] Utilities Answer Date Recorded In the past [...] Assessment Noted Time PHQ-9 Depression Total Score: 1 04/07/19 25 10:50 AM EST A fall risk assessment has been complete d for the patient 01/10/2024 8:28 AM EDT A Body Mass Index follow-up plan has been documented for the patient 10/16/2024 2:13 PM EDT documented as of this encounter Care Teams Acute Care Registered Nurse Relationship Specialty Start Date End Date Leslie Hanna, FUNERAL LIMOUSINE DRIVER [address] [place] [address] PCP - General Family Medicine 07/11/23 documented as of this encounter
--- OUTSIDE RECORDS SUMMARY | 2025-03-03 15:16 | XMS_ITS | Encounter Summary ---
Author Organization Healthcare Address [address] [place] [address] Care Team Providers Care Fire Production Operator Name Role Phone Leslie Hanna APRN Primary Care Provider [phone] Encounter Details Date Type Department Care Team (Late st Contact Info) Description 01/31/2025 Results Follow-Up [facility] [address] [place] [address] Leslie Hanna, JOHN [address] [place] [address] Social History Tobacco Use Types Packs/Day Years [...] any time in the past 12 m [facility], were you homeless or living in a long-term (including now)? No 01/26/2025 [facility] Utilities Answer Date Recorded In the past [...] documented as of this encounter Care Teams Fire Production Operator Relationship Specialty Start Date End Date Leslie Hanna, JOHN [address] [place] [address] PCP - General Family Medicine 07/11/23 documented as of this encounter
--- OUTSIDE RECORDS SUMMARY | 2025-03-03 15:16 | XMS_ITS | Encounter Summary ---
Author Organization Healthcare Address [address] [place] [address] Care Team Providers Care Systems Manager Name Role Phone Leslie Hanna APRN Primary Care Provider [phone] Reason for Visit * Reason Comments Med Refill Encounter Details Date Type Department Care Team (Late st Contact Info) Description 02/27/2025 Refill [facility] [address] [place] [address] Leslie Hanna, JOHN [address] [place] [address] Obesity (BMI 30.0-34.9); Essential (primary) hypertension; Hypercholesterolemia Social History Tobacco [...] time in the past 12 m [facility], were you homeless or living in a longterm (including now)? No 01/26/2025 [facility] Utilities Answer Date Recorded In the [...] on file documented as of this encounter Miscellaneous Notes * Telephone Encounter - Melinda Zurita RN - 03/03/2025 9:14 AM EST Phillipgovy refill: 03/03/2025 9:14 AM RN CLAUDIAOM asking pt to return call re: how tolerating current dose, any side effects, and if he wants to stay at current dose or move up. documented in this encounter Plan of Treatment Not on file documented as of this encounter Visit Diagnoses Diagnosis Obesity (BMI 30.0-34.9) Essential (primary) hypertension Unspecified essential hypertension Hypercholesterolemia [...] documented as of this encounter Care Teams Systems Manager Relationship Specialty Start Date End Date Leslie Hanna, CROZER [address] [place] [address] PCP - General Family Medicine 07/11/23 documented as of this encounter
--- OUTSIDE RECORDS SUMMARY | 2025-03-03 15:16 | XMS_ITS | Encounter Summary ---
Author Organization Healthcare Address [address] [place] [address] Care Team Providers Care Ophthalmic Technician Name Role Phone Onelia Benavides APRN Primary Care Provider [phone] Leslie Hanna ENVIRONMENTAL SERVICE AIDE Primary Care Provider [phone] Encounter Details Date Type Department Care Team (Late st Contact Info) Description 08/22/2022 Orders Only External Location [address] [place] [address] Onelia Benavides, ENVIRONMENTAL SERVICE AIDE [address] [place] [address] Social History Tobacco Use Types Packs/Day Years [...] documented as of this encounter Care Teams Ophthalmic Technician Relationship Specialty Start Date End Date Onelia Benavides APRN [address] [place] [id number] PCP - General Family Medicine 09/28/21 07/10/23 Leslie Hanna APRN [address] [place] [address] PCP - General Family Medicine 07/11/23 documented as of this encounter
--- OUTSIDE RECORDS SUMMARY | 2025-03-03 15:16 | XMS_ITS | Clinical Summary ---
Author Organization Healthcare Address [address] [place] [address] Care Team Providers Care Brick Grader Name Role Phone Leslie Hanna APRN Primary Care Provider [phone] Allergies Active Allergy Reactions Criticality Noted Date [...] mouth daily. 180 tablet 3 5 Active Semaglutide-Weig ht Management (Wegovy) 0.25 MG/0.5ML solution auto-injectorInd ications:Obesity (BMI 30.0-34.9),Essen tial (primary) hypertension,Hyp ercholesterolemi a Inject 0.25 mg under the skin 1 time per week. 2 mL Active Hospital, Clinic, or Other Facility Administered [...] Resolved Date Acute pain of left knee 10/29/2023/04/2024 Insomnia 09/07/2016 12/20/2024 Overview (09/28/2021): Last Assessment [...] Encounters Date Type Department Care Team Description 02/27/2025 Refill [facility] [address] [place] [address] Leslie Hanna APRN Obesity (BMI 30.0-34.9); Essential (primary) hypertension; Hypercholesterolemia 02/01/2025 Orders Only [facility] [address] [place], [place] [address] Leslie Hanna APRN Obesity (BMI 30.0-34.9) (Primary Dx); Essential (primary) hypertension; Hypercholesterolemia 01/31/2025 Results Follow-Up [facility] [address] [place] [address] Lselie Hanna APRN 01/29/2025 11:20 AM EDT Office Visit [facility] [address] [place] [address] Leslie Hanna, JOHN Annual physical exam (Primary Dx); Essential (primary) hypertension; Gastroesophageal reflux disease without esophagitis; Erectile dysfunction, unspecified erectile dysfunction type; Generalized anxiety disorder; Hyponatremia; Tubular adenoma; Encounter for screening for malignant neoplasm of prostate; Need for vaccination; Healthcare maintenance 01/29/2025 Travel 01/26/2025 Travel from Last 3 Months Immunizations Immunization Administration Dates Next Due Influenza, Unspecified 01/17/2018,04/01/2016,10/2009 Influenza, injectable, quadr ivalent, preservative free 01/26/2019 Influenza, seasonal, intrade rmal, preservative free 02/16/2015 Tdap 11/10/2021,03/15/2016,05/28/2014 Zoster, Recombinant 01/29/2025 Family History Medical History Relation Name Comments [...] money to buy more. Never true 01/27/20 Within the past 12 months, t he [...] any time in the past 12 m [facility], were you homeless or living in a [place] facility (including now)? No 01/26/2025 [facility] Utilities Answer Date Recorded In the past 12 months has th e [email or web address], gas, oil, or water company threatened to [...] Mass Index 33.86 01/29/2025 11:40 AM EDT Plan of Treatment Health Maintenance Due Date Last Done Comments [facility]-HIV Screening 1966 [facility]-Hepatitis C Screening 1966 [facility]-Hepatitis B Vaccines (1 of 3 - 19+ 3-dose series) 1985 CT Colonography 07/18/2011 FIT-DNA 07/18/2011 FIT 07/18/2011 FOBT 07/18/2011 Sigmoidoscopy 07/18/2011 [facility]-Pneumococcal Vaccine: 50+ Years (1 of 1 - PCV) 2016 [facility]-Infant/Child/Adol SDOH Screenings 10/05/2024 04/07/2024 [id number] Vaccine (1 - season) 2024 [facility]-Influenza Vaccine (#1) 11/30/202401/26, 01/17/2018, 04/01/2016, Additional history exists [facility]-Zoster Vaccines (2 of 2) 03/26/2025 01/29/2025 [facility]- SDOH Screenings 07/27/2025 [facility]-Adult SDOH Screenings 07/27/2025 01/26/2025 [facility]-Depression Screening 01/29/2026 01/29/2025, 01/01 [facility]-DTaP,Tdap,and Td Vaccines (4 - Td or Tdap) 11/11/2031 11/10/2021, 03/15/2016, 05/28/2014 Colonoscopy 06/10/2033 06/11/2023, 05/30, 06/07/2023 [facility]-Colorectal Cancer Screening 06/10/2033 [facility]-Diabetes: Hemoglobin A1C Discontinued 01/29/2025, 08/21/2022, 09/28/2021 [facility]-Obesity Intervention Completed 025, 01/29/2025, 01/29/2025, Additional history exists HPV Vaccines Aged Out [...] for screening for malignant neoplasm of prostate LIPID PROFILE, PLASMA Routine 01/29/2025 12:47 PM EDT Annual physical exam TSH Routine 01/29/2025 12:47 PM EDT Annual physical exam CBC W/O DIFFERENTIAL Routine 01/29/2025 12:47 PM EDT Annual physical exam COMPREHENSIVE METABOLIC PANEL, PLASMA Routine 01/29/2025 12:47 PM EDT Annual physical exam Essential (primary) hypertension Hyponatremia HEMOGLOBIN A1C Routine 01/29/2025 12:47 PM EDT Annual physical exam COLONOSCOPY EXTERNAL RESULT 06/11/2023 from Last 3 Months or Most Recently Relevant to Health Maintenance Results * Prostate Cancer Screen, Serum (01/29/2025 12:47 PM EDT) Pathologist [facility] [place] Prostate Cancer Screen, Serum 0.55 0.00 - 3.50 ng/mL 01/29/2025 7:10 PM EDT [facility] Blood Venous blood specimen / Unknown Venipuncture / Unknown 01/29/2025 12:47 PM EDT 01/29/2025 12:47 PM EDT Narrative [facility] - 01/29/2025 7:10 PM EDT Performed by Josiah electrochemiluminescent immunoassay which is standardized against the PSA Dilliner Reference Standard (WHO 96/670). Results obtained with different test methods or kits cannot be used interchangeably. us Leslie Hanna APRN LAB BLOOD ORDERABLES Final Result [facility] [address] [place] [address] * (ABNORMAL) CBC W/O Differential (01/29/2025 12:47 PM EDT) [facility] WBC Count 5.58 3.70 - 10.30 10*3/uL LAB HEMATOLOGY METHOD 01/29/2025 6:45 PM EDT [facility] RBC Count 4.62 4.60 - 6.10 10*6/uL LAB HEMATOLOGY METHOD 01/29/2025 6:45 PM EDT [facility] HGB 14.5 13.7 - 17.5 g/dL LAB HEMATOLOGY METHOD 01/29/2025 6:45 PM EDT [facility] HCT 42.6 40.0 - 51.0 % LAB HEMATOLOGY METHOD 01/29/2025 6:45 PM EDT [facility] Platelet Count 413(H) 155 - 369 10*3/uL LAB HEMATOLOGY METHOD 01/29/2025 6:45 PM EDT [facility] MCV 92 79 - 98 fL LAB HEMATOLOGY METHOD 01/29/2025 6:45 PM EDT [facility] MCH 31.4 26.0 - 32.0 pg LAB HEMATOLOGY METHOD 01/29/2025 6:45 PM EDT [facility] MCHC 34.0 30.7 - 35.5 g/dL LAB HEMATOLOGY METHOD 01/29/2025 6:45 PM EDT [facility] RDW 13.5 11.5 - 14.5 % LAB HEMATOLOGY METHOD 01/29/2025 6:45 PM EDT [facility] MPV 9.5 8.8 - 12.5 fL LAB HEMATOLOGY METHOD 01/29/2025 6:45 PM EDT [facility] nRBC 0.0 <=0.0 per 100 WBCs LAB HEMATOLOGY METHOD 01/29/2025 6:45 PM EDT [facility] Blood Venous blood specimen / Unknown Venipuncture / Unknown 01/29/2025 12:47 PM EDT 01/29/2025 12:47 PM EDT us Leslie Hanna APRN LAB BLOOD ORDERABLES Final Result Performing Organization Address City/[facility]/ZIP Co de Phone Number [facility] [address] [place] [address] * Thyroid Stimulating Hormone, Plasma (01/29/2025 12:47 PM EDT) Thyroid Stimulating Hormone, Plasma 1.08 0.40 - 4.20 uIU/mL 01/29/2025 7:01 PM EDT [facility] Blood Venous blood specimen / Unknown Venipuncture / Unknown 01/29/2025 12:47 PM EDT 01/29/2025 12:47 PM EDT us Leslie Hanna APRN LAB BLOOD ORDERABLES Final Result [facility] [address] [place] [address] * Hemoglobin A1c (01/29/2025 12:47 PM EDT) Hemoglobin A1c 5.6 <5.7 % 01/29/2025 10:37 PM EDT [facility] Blood Venous blood specimen / Unknown Venipuncture / Unknown 01/29/2025 12:47 PM EDT 01/29/2025 12:47 PM EDT Narrative [facility] - 01/29/2025 10:37 PM EDT HA1C Interpretive Data: Diagnosis of Diabetes: Diabetic > or = 6.5% Pre-diabetic 5.7 to 6.4% Non-diabetic < or = 5.6% Glycemic Targets for Type I and Type II Diabetics: Non- Adults <7.0% Adults <6.0% Children and Adolescents <7.5% Source: [place] [employer]. Standards of medical care in diabetes,2017. Diabetes Care.2017:40 (suppl 1):S1-S135. Leslie Hanna INVOICE MACHINE OPERATOR LAB BLOOD ORDERABLES Final Result [facility] [address] [place] [address] * (ABNORMAL) Lipid Profile, Plasma (01/29/2025 12:47 PM EDT) Cholesterol, Plasma 184 <200 mg/dL 01/29/2025 7:01 PM EDT [facility] Comment: Cholesterol Reference Range (age >17 years): Desirable <200 mg/dL Borderline 200 to 239 mg/dL Undesirable >239 mg/dL HDL 53 >=40 mg/dL 01/29/2025 7:01 PM EDT [facility] Comment: HDL Cholesterol Reference Ranges (age >17 years): Female, acceptable > or = 50 mg/dL Male, acceptable > or = 40 mg/dL Triglycerides, Plasma 85 <150 mg/dL 01/29/2025 7:01 PM EDT [facility] Comment: Triglyceride Reference Range (age >17 years): Desirable: <150 mg/dL Borderline high: 150 to 199 mg/dL High: 200 to 499 mg/dL Very high: >499 mg/dL Increased risk of pancreatitis: >1000 mg/dL Cholesterol/HDL Ratio 3 01/29/2025 7:01 PM EDT [facility] LDL, Calculated 115(H) <100 mg/dL 7:01 PM EDT [facility] Comment: LDL Cholesterol Reference Range [...] 12 hours? Yes 01/29/2025 7:01 PM EDT [facility] Blood Venous blood specimen / Unknown Venipuncture / Unknown 01/29/2025 12:47 PM EDT 01/29/2025 12:47 PM EDT us Leslie Hanna INVOICE MACHINE OPERATOR LAB BLOOD ORDERABLES Final Result [facility] [address] [place] [address] * (ABNORMAL) Comprehensive Metabolic Panel, Plasma (01/29/2025 12:47 PM EDT) Glucose, Plasma 90 74 - 99 mg/dL 01/29/2025 7:01 PM EDT [facility] BUN, Plasma 10 7 - 21 mg/dL 01/29/2025 7:01 PM EDT [facility] Creatinine, Plasma 0.73 0.70 - 1.20 mg/dL 01/29/2025 7:01 PM EDT [facility] BUN/Creatinine Ratio 14 01/29/2025 7:01 PM EDT [facility] Sodium, Plasma 133(L) 136 - 145 mmol/L 01/29/2025 7:01 PM EDT [facility] Potassium, Plasma 4.1 3.6 - 4.9 mmol/L 01/29/2025 7:01 PM EDT [facility] Chloride, Plasma 93(L) 97 - 107 mmol/L 01/29/2025 7:01 PM EDT [facility] CO2, Plasma 30(H) 22 - 29 mmol/L 01/29/2025 7:01 PM EDT [facility] Anion Gap 10 6 - 16 mmol/L 01/29/2025 7:01 PM EDT [facility] Total Calcium, Plasma 9.5 8.9 - 10.2 mg/dL 01/29/2025 7:01 PM EDT [facility] Total Protein 7.6 6.3 - 7.9 g/dL 01/29/2025 7:01 PM EDT [facility] Albumin, Plasma 4.8 3.5 - 5.2 g/dL 01/29/2025 7:01 PM EDT [facility] AST, Plasma 21 10 - 50 U/L 01/29/2025 7:01 PM EDT [facility] ALT, Plasma 30 10 - 50 U/L 01/29/2025 7:01 PM EDT [facility] Alkaline Phosphatase, Plasma 90 40 - 115 U/L 01/29/2025 7:01 PM EDT [facility] Total Bilirubin, Plasma 0.4 0.2 - 1.1 mg/dL 01/29/2025 7:01 PM EDT [facility] eGFRcr 105.5 mL/min/1.7 3m*2 01/29/2025 7:01 PM EDT [facility] Comment:Reported eGFRcr in m L/min/1.73m2 is based the CKD-EPI 2020 equation that does not use a race coefficient. Blood Venous blood specimen / Unknown Venipuncture / Unknown 01/29/2025 12:47 PM EDT 01/29/2025 12:47 PM EDT Leslie Hanna INVOICE MACHINE OPERATOR LAB BLOOD ORDERABLES Final Result [facility] [address] [place] [address] * COLONOSCOPY EXTERNAL RESULT (06/11/2023) Anatomical Region Laterality Modality Endoscopy Narrative 06/11/2023 Ordered by an unspecified provider. us External Provider GI PROCEDURE ORDERABLES Final Result from Last 3 Months or Most Recently Relevant to Health Maintenance Insurance [employer] Care Teams Brick Grader Relationship Specialty Start Date End Date Leslie Hanna, INVOICE MACHINE OPERATOR [address] [place] [address] PCP - General Family Medicine 07/11/23
--- NOTE | 2025-03-03 15:29 | ED_ITS ---
<Statement entered by Jean Marie Medina MD - 03/03/25 22:45> I was consulted by the GAMALIEL, and we discussed the complexity of the problems being addressed. I approved the treatment and management plan for this patient's care in the emergency department, thus performing a substantive portion of the medical decision making. Jean Marie Medina MD, VERNELL, FACEP Discharge Plan Disposition Patient Disposition: Admitted Condition: Good Clinical Impressions Clinical Impression: BRBPR (bright red blood per rectum) Syncope Qualifiers: Syncope type: vasovagal syncope Qualified Code(s): R55 - Syncope and collapse Discharge ED Provider: Jean Marie Mdeina General Adult HPI <JEANETTE Millan - Last Filed: 03/03/25 19:43> General Chief complaint: Syncope Stated complaint: colonoscopy 12-2 bleeding from rectum Time Seen by Provider: 03/03/25 15:02 Mode of Arrival: Ambulatory Source of Information: Patient, Spouse and Medical Record Limitations: No Limitations History of Present Illness HPI narrative: 59-year-old male presents to the emergency department accompanied by his spouse for an episode of bright red blood per rectum enough to the fill up toilet bowl , that it happened a couple hours prior to arrival, patient then saw the blood and ask his to come and look at it as well, when the patient felt like he was going to pass out and started feeling lightheaded, caught him and eased him down to the ground, did not strike the head. Patient states he had a similar episode in 2012, patient is status post colonoscopy yesterday, where he had what sounds like a sessile polyp removed, patient gets 6 months to yearly colonoscopies, with polyp removal nearly every colonoscopy due to precancerous/high risk polyps. Patient denies any fever chills chest pain shortness of breath nausea vomiting constipation diarrhea no abdominal pain, no lightheadedness no dizziness, no urinary symptomatology, patient denies any tobacco use, occasionally utilizes alcohol, denies any other drug use, other past medical history is consistent with hypertension, MDD/BEAN. Initial triage vitals are unremarkable. Please note that above description of symptoms, in this electronic medical record under categorization of recalled from ER triage doctor by RN are reflective of an initial nursing assessment, however, is not reflective of my full history and physical exam that was personally taken and clarified. Consequentially, this preceding description of symptoms, which may include the patient's categorized chief complaint in the EMR, do not reflect my personal clinical impression, and the ultimate description of history of present illness and patient stated complaints should be deferred to this section of the note. Unless stated otherwise or congruent with this section of the note, additional signs, symptoms, or incongruence should be interpreted as inaccurate with my clinical impression. Onset (ago): hour(s) Related Data Home Medications ?Medication ?Instructions ?Recorded ?Confirmed amlodipine 5 mg tablet 5 mg PO DAILY 03/12/2303/03 enalapril maleate 20 mg tablet 40 mg PO DAILY 03/12/23 03/03/25 lansoprazole 30 mg capsule,delayed 30 mg PO DAILY 03/0103/03/25 release venlafaxine 75 mg capsule,extended 75 mg PO DAILY 03/0103/03/25 release 24 hr Allergies Allergy/AdvReac Type Severity Reaction Status Date / Time Penicillins Allergy Mild Unknown Verified 12/23/24 12:11 allergy reaction [facility] <JEANETTE Millan - Last Filed: 03/03/25 19:43> [facility] Disclaimer: The information contained in this section may have been updated after the patient was seen, as this information can be updated by other users. Medical History History of arthroplasty of right wrist History of gastroesophageal reflux (GERD) Hypertension Surgical History Hx of total knee replacement Family History Brother Anal cancer Grandfather Lung cancer Social History (Updated 03/03/25 @ 21:34 by Lucina Pearson RN) Smoking Status: Never smoker alcohol intake: never current occupational status: employed Travel in the last 8 weeks?: None Have you lived/traveled outside [place] in past 30 days?: No Contact w/someone who lives/traveled outside US past 30 days?: No Exposure to someone with infectious disease in past 14 days?: No Do you have a fever (greater than 100.4 F or 38 C)?: No Have you tested positive for COVID-19?: No Exposed to someone with COVID-19 in past 14 days?: No Do you have a sore throat?: No Do you have a cough?: No Do you have any weakness?: No Do you have any diarrhea?: No Are you experiencing any unusual bleeding?: No Do you have any muscle aches/pain?: No Do you have any abdominal pain?: No Are you experiencing loss of taste or smell?: No Other Medical History Have you received the Flu Vaccine for this season: Yes Have you received the Pneumonia Vaccine: No <JEANETTE Millan - Last Filed: 03/03/25 19:43> ROS Obtained: Yes All systems reviewed & no additional complaints except as documented Physical Exam <JEANETTE Millan - Last Filed: 03/03/25 19:43> General General appearance: alert and in no apparent distress Head Head exam: atraumatic and normocephalic Eye Eye exam: Present PERRL and EOMI ENT ENT exam: Present mucous membranes moist Neck Neck exam: Present normal inspection Chest Chest inspection: Present normal inspection and symmetric chest wall rise Respiratory Respiratory exam: Present normal lung sounds bilaterally; Absent respiratory distress Cardiovascular Cardiovascular exam: Present regular rate and normal rhythm Abdominal Exam Abdominal exam: Present soft; Absent distention, tenderness, guarding, rebound or rigidity Rectal Exam Rectal exam: Present heme (+) stool, bloody stool and hemorrhoids comment: Mild external hemorrhoid that is not bleeding nonincarcerated no strangulated, at around 6 PM. Extremities Exam Extremities exam: Present normal inspection Neurological Exam Neurological exam: Present alert and oriented X3 Psychiatric Psychiatric exam: Present normal affect Skin Skin exam: Present warm and dry Medical Decision Making <JEANETTE Millan - Last Filed: 03/03/25 19:43> Medical Records Medical records reviewed: Yes I reviewed the patient's medical records. Screening: Per USPSTF and CDC recommendations, given the prevalence of disease in our region, it is our hospital?s policy to screen for HIV and viral Hepatitis for all patients aged 18 and over and those with ongoing risk factors. Jimmy Inquiry Pt receiving controlled substance: No Jimmy was queried for this patient: No Vital Signs: 03/03/25 15:00 03/03/25 15:30 03/03/25 16:17 Temperature 98.6 F Temperature Source Oral Pulse Rate 74 81 Pulse Rate [Left Radial] 85 Respiratory Rate 16 Blood Pressure 143/94 H 174/85 H Blood Pressure [Right Arm] 147/95 H Blood Pressure Mean 121 Blood Pressure Mean [Right Arm] 112 Blood Pressure Source Blood Pressure Source [Right Arm] Automatic Cuff Blood Pressure Position Blood Pressure Position [Right Arm] Sitting 02 Sat by Pulse Oximetry 100 97 97 Oxygen Delivery Method Room Air 03/03/25 16:44 03/03/25 17:00 03/03/25 17:30 Temperature Temperature Source Pulse Rate 83 82 95 H Pulse Rate [Left Radial] Respiratory Rate Blood Pressure 156/98 H 152/95 H 131/91 H Blood Pressure [Right Arm] Blood Pressure Mean 130 Blood Pressure Mean [Right Arm] Blood Pressure Source Blood Pressure Source [Right Arm] Blood Pressure Position Blood Pressure Position [Right Arm] 02 Sat by Pulse Oximetry 96 98 97 Oxygen Delivery Method 03/03/25 18:00 03/03/25 19:15 03/03/25 19:30 Temperature Temperature Source Pulse Rate 90 99 H 84 Pulse Rate [Left Radial] Respiratory Rate Blood Pressure 127/87 Blood Pressure [Right Arm] Blood Pressure Mean Blood Pressure Mean [Right Arm] Blood Pressure Source Blood Pressure Source [Right Arm] Blood Pressure Position Blood Pressure Position [Right Arm] 02 Sat by Pulse Oximetry 99 98 98 Oxygen Delivery Method Room Air Room Air 03/03/25 19:30 03/03/25 19:45 03/03/25 20:00 Temperature Temperature Source Pulse Rate 82 Pulse Rate [Left Radial] Respiratory Rate Blood Pressure 165/99 H 130/89 Blood Pressure [Right Arm] Blood Pressure Mean 122 102 Blood Pressure Mean [Right Arm] Blood Pressure Source Blood Pressure Source [Right Arm] Blood Pressure Position Blood Pressure Position [Right Arm] 02 Sat by Pulse Oximetry 99 Oxygen Delivery Method Room Air 03/03/25 20:00 03/03/25 21:00 03/03/25 21:00 Temperature 98.6 F Temperature Source Oral Pulse Rate 84 84 Pulse Rate [Left Radial] Respiratory Rate 18 Blood Pressure 130/89 Blood Pressure [Right Arm] Blood Pressure Mean Blood Pressure Mean [Right Arm] Blood Pressure Source Automatic Cuff Blood Pressure Source [Right Arm] Blood Pressure Position Standing Blood Pressure Position [Right Arm] 02 Sat by Pulse Oximetry 100 Oxygen Delivery Method Room Air Room Air Room Air 03/03/25 21:00 Temperature Temperature Source Pulse Rate 90 Pulse Rate [Left Radial] Respiratory Rate Blood Pressure Blood Pressure [Right Arm] Blood Pressure Mean Blood Pressure Mean [Right Arm] Blood Pressure Source Blood Pressure Source [Right Arm] Blood Pressure Position Blood Pressure Position [Right Arm] 02 Sat by Pulse Oximetry Oxygen Delivery Method Lab Data Lab results reviewed: Yes I reviewed the patient's lab results. Lab Results 03/03/25 15:27: WBC 10.2, RBC 3.54 L, Hgb 11.3 L, Hct 32.3 L, MCV 91.2, MCH 31.9 H, MCHC 35.0, RDW 12.8, Plt Count 308, MPV 8.8, Neut % (Auto) 83.1 H, Lymph % (Auto) 9.1 L, [place] % (Auto) 6.6, Eos % (Auto) 0.6, Baso % (Auto) 0.3, Neut # (Auto) 8.4 H, Lymph # (Auto) 0.9, [place] # (Auto) 0.7, Eos # (Auto) 0.1, Baso # (Auto) 0.0, PT 11.1, INR 1.00, APTT 25.7, Sodium 130 L, Potassium 4.2, Chloride 92 L, Carbon Dioxide 29, Anion Gap 13.2, BUN 11, Creatinine 0.70, Estimated Creat Clear 170, Estimated GFR 116, Est GFR ( Amer) 140, Glucose 112 H, Calcium 8.7, Total Bilirubin 0.2, AST 30, ALT 31, Alkaline Phosphatase 73, Total Protein 6.6, Albumin 4.2, Globulin 2.4, Albumin/Globulin Ratio 1.8, Lipase 57 03/03/25 15:38: Lactate 1.0, Blood Type O Positive, Antibody Screen Negative 03/03/25 18:30: Hgb 11.3 L, Hct 32.5 L 03/03/25 18:30 03/03/25 15:27 Orders (Tests/Meds): ED MEDICATIONS Generic Name Dose Route Start Last Admin Trade Name Freq PRN Reason Stop Dose Admin Acetaminophen 650 mg 03/03/25 19:50 Acetaminophen 325mg Tab PO 04/02/25 19:49 Q4HP PRN Fever or Mild Pain (1-3) Hydrocodone Bitart/Acetaminophen 1 tab 03/03/25 19:50 Hydrocodone/Apap 5/325 Mg Tablet PO 04/02/25 19:49 Q4HP PRN Mild to Moderate Pain (1-6) Sodium Chloride 1,000 mls @ 100 mls/hr 03/03/25 20:00 03/03/25 20:58 Sod Chlor 0.9% 1000ml Bag IV 04/02/25 19:59 100 mls/hr .Q10H CORY Administration Morphine Sulfate 2 mg 03/03/25 19:50 Morphine 2mg/Ml Syringe IV 04/02/25 19:49 Q4HP PRN Severe Pain (7-10) Ondansetron HCl 4 mg 03/03/25 19:50 Ondansetron 4mg/2ml Vial IV 04/02/25 19:49 Q8HP PRN Nausea Sodium Chloride 10 ml 03/03/25 19:50 Sodium Chloride 0.9% 10ml Flush Syringe IV 04/02/25 19:49 NEEDED PRN Maintain IV Site Discontinued Medications Generic Name Dose Route Start Last Admin Trade Name Freq PRN Reason Stop Dose Admin Iopamidol 80 ml 03/03/25 16:34 03/03/25 16:35 Iopamidol-370 (76%);100ml Bottle IV 03/03/25 16:35 80 ml ONCE ONE Administration Sodium Chloride 50 ml 03/03/25 16:34 03/03/25 16:35 0.9 % Sodium Chloride 50 Ml Vial IV 03/03/25 16:35 50 ml ONCE ONE Administration Sodium Chloride 10 ml 03/03/25 16:34 03/03/25 16:35 Sodium Chloride 0.9% 10ml Syr (Rad Only) IV 03/03/25 16:35 10 ml ONCE ONE Administration ORDERS Category Date Time Status Type and Screen Stat BBK 03/03/25 15:[address] angio abd/pel - GI Bleed Stat Cat Scan 03/03/25 15:41 Completed Complete Blood Count Auto Diff Stat Lab 03/03/25 15:27 Completed Comprehensive Metabolic Panel Stat Lab 03/03/25 15:27 Completed Hemoglobin and Hematocrit Stat Lab 03/03/25 18:30 Completed Lactic Acid Stat Lab 03/03/25 15:38 Completed Lipase Stat Lab 03/03/25 15:27 Completed Occult Blood,Stool Stat Lab 03/03/25 Completed PT INR [Prothrombin Time INR] Stat Lab 03/03/25 15:27 Completed PTT [Activated Partial Thrombo Time] Stat Lab 03/03/25 15:27 Completed Medical Decision Narrative: 59-year-old male presents emergency department with rectal bleeding after colonoscopy yesterday, vasovagal episode, differential diagnose include but not limited to symptomatic anemia, external hemorrhoids, internal hemorrhoids, postprocedural bleeding, perforation, lower GI bleed, cardiac arrhythmia, electrolyte disturbance, vasovagal syncope, situational syncope, among others. I discussed this patient's case with the attending physician Dr. Medina. Will obtain basic laboratory studies, EKG, type and screen, coagulation studies, lactic acid lipase level, occult stool, and CT angiogram of the abdomen pelvis. CBC is noted for erythrocyte opinion at 3.54, hemoglobin hematocrit 11.3/32.3 Coags within normal limits CMP is notable for mild hyponatremia 130 Blood type is O+ I was notified by nursing staff that patient did have to defecate, and did have quite significant blood , in the toilet, patient did have quite significant bright blood per rectum, and quite significant blood in the toilet bowl. No lactic acidosis Positive stool occult blood I reviewed the patient's CTA abdomen pelvis with and without contrast GI bleed protocol on the corresponding radiologic reports no evidence of active gastrointestinal bleeding at the time of this exam, bilateral L5 pars defect grade 1 anterior thesis L5-S1, sacrum spina bifida occulta, additional chronic and/or nonacute insert findings are detailed above. Will reach out to patient's GI physician or GI team who performed colonoscopy yesterday for consultation/recommendations. Patient defy nursing staff that he has had approximately 3-4 episodes of bright red blood in the toilet, these had 2 in the emergency department today. Will repeat H&H. I was able to discuss this patient's case with Dr. Naik at approximately 6:30 PM who is a partner of the patient's scrap crusher who performed colonoscopy yesterday, he will reach out to the patient's scrap crusher who performed colonoscopy yesterday to see exactly what type of polyp was removed and the technique. I discussed this patient's case with the on-call GI physician Dr. Marion at approximately 6:42 PM, he recommends following up with the patient's GI physician determining exactly what kind of polyp the patient had removed yesterday via polypectomy and what technique was used. Could consider possible admission for post polypectomy bleed if H&H continues to downtrend depending on what the patient's actual gastroenterology says after callback. H&H remained stable at 11.3/32.5 respectively. I was able to speak to Dr. Naik at approximately 7:15 PM, unfortunately he was not able to contact the patient's GI physician directly, he would recommend potential observation for polypectomy bleed and presyncopal versus syncopal episode, with 3-4 episodes of bright bright red blood per rectum with colonoscopy yesterday. I discussed need for admission for observation with GI consultation and possible intervention tomorrow. Patient and family are in agreement with the current admission plan/treatment plan. I discussed this patient's case with Mj Nunez APRN hospitalist provider who graciously except the patient for admission. Patient be admitted to [facility] telemetry. Dr. Doni munoz GI physician would like the patient to be made n.p.o. after midnight and only clear liquid diet at this time. Patient and family are in agreement with the current admission plan/treatment plan. <Jean Marie Medina MD - Last Filed: 03/03/25 22:46> Vital Signs: 03/03/25 15:00 03/03/25 15:30 03/03/25 16:17 Temperature 98.6 F Temperature Source Oral Pulse Rate 74 81 Pulse Rate [Left Radial] 85 Respiratory Rate 16 Blood Pressure 143/94 H 174/85 H Blood Pressure [Right Arm] 147/95 H Blood Pressure Mean 121 Blood Pressure Mean [Right Arm] 112 Blood Pressure Source Blood Pressure Source [Right Arm] Automatic Cuff Blood Pressure Position Blood Pressure Position [Right Arm] Sitting 02 Sat by Pulse Oximetry 100 97 97 Oxygen Delivery Method Room Air 03/03/25 16:44 03/03/25 17:00 03/03/25 17:30 Temperature Temperature Source Pulse Rate 83 82 95 H Pulse Rate [Left Radial] Respiratory Rate Blood Pressure 156/98 H 152/95 H 131/91 H Blood Pressure [Right Arm] Blood Pressure Mean 130 Blood Pressure Mean [Right Arm] Blood Pressure Source Blood Pressure Source [Right Arm] Blood Pressure Position Blood Pressure Position [Right Arm] 02 Sat by Pulse Oximetry 96 98 97 Oxygen Delivery Method 03/03/25 18:00 03/03/25 19:15 03/03/25 19:30 Temperature Temperature Source Pulse Rate 90 99 H 84 Pulse Rate [Left Radial] Respiratory Rate Blood Pressure 127/87 Blood Pressure [Right Arm] Blood Pressure Mean Blood Pressure Mean [Right Arm] Blood Pressure Source Blood Pressure Source [Right Arm] Blood Pressure Position Blood Pressure Position [Right Arm] 02 Sat by Pulse Oximetry 99 98 98 Oxygen Delivery Method Room Air Room Air 03/03/25 19:30 03/03/25 19:45 03/03/25 20:00 Temperature Temperature Source Pulse Rate 82 Pulse Rate [Left Radial] Respiratory Rate Blood Pressure 165/99 H 130/89 Blood Pressure [Right Arm] Blood Pressure Mean 122 102 Blood Pressure Mean [Right Arm] Blood Pressure Source Blood Pressure Source [Right Arm] Blood Pressure Position Blood Pressure Position [Right Arm] 02 Sat by Pulse Oximetry 99 Oxygen Delivery Method Room Air 03/03/25 20:00 03/03/25 21:00 03/03/25 21:00 Temperature 98.6 F Temperature Source Oral Pulse Rate 84 84 Pulse Rate [Left Radial] Respiratory Rate 18 Blood Pressure 130/89 Blood Pressure [Right Arm] Blood Pressure Mean Blood Pressure Mean [Right Arm] Blood Pressure Source Automatic Cuff Blood Pressure Source [Right Arm] Blood Pressure Position Standing Blood Pressure Position [Right Arm] 02 Sat by Pulse Oximetry 100 Oxygen Delivery Method Room Air Room Air Room Air 03/03/25 21:00 Temperature Temperature Source Pulse Rate 90 Pulse Rate [Left Radial] Respiratory Rate Blood Pressure Blood Pressure [Right Arm] Blood Pressure Mean Blood Pressure Mean [Right Arm] Blood Pressure Source Blood Pressure Source [Right Arm] Blood Pressure Position Blood Pressure Position [Right Arm] 02 Sat by Pulse Oximetry Oxygen Delivery Method Lab Data Lab Results 03/03/25 15:27: WBC 10.2, RBC 3.54 L, Hgb 11.3 L, Hct 32.3 L, MCV 91.2, MCH 31.9 H, MCHC 35.0, RDW 12.8, Plt Count 308, MPV 8.8, Neut % (Auto) 83.1 H, Lymph % (Auto) 9.1 L, [place] % (Auto) 6.6, Eos % (Auto) 0.6, Baso % (Auto) 0.3, Neut # (Auto) 8.4 H, Lymph # (Auto) 0.9, [place] # (Auto) 0.7, Eos # (Auto) 0.1, Baso # (Auto) 0.0, PT 11.1, INR 1.00, APTT 25.7, Sodium 130 L, Potassium 4.2, Chloride 92 L, Carbon Dioxide 29, Anion Gap 13.2, BUN 11, Creatinine 0.70, Estimated Creat Clear 170, Estimated GFR 116, Est GFR ( Amer) 140, Glucose 112 H, Calcium 8.7, Total Bilirubin 0.2, AST 30, ALT 31, Alkaline Phosphatase 73, Total Protein 6.6, Albumin 4.2, Globulin 2.4, Albumin/Globulin Ratio 1.8, Lipase 57 03/03/25 15:38: Lactate 1.0, Blood Type O Positive, Antibody Screen Negative 03/03/25 18:30: Hgb 11.3 L, Hct 32.5 L Orders (Tests/Meds): ED MEDICATIONS Generic Name Dose Route Start Last Admin Trade Name Freq PRN Reason Stop Dose Admin Acetaminophen 650 mg 03/03/25 19:50 Acetaminophen 325mg Tab PO 04/02/25 19:49 Q4HP PRN Fever or Mild Pain (1-3) Hydrocodone Bitart/Acetaminophen 1 tab 03/03/25 19:50 Hydrocodone/Apap 5/325 Mg Tablet PO 04/02/25 19:49 Q4HP PRN Mild to Moderate Pain (1-6) Sodium Chloride 1,000 mls @ 100 mls/hr 03/03/25 20:00 03/03/25 20:58 Sod Chlor 0.9% 1000ml Bag IV 04/02/25 19:59 100 mls/hr .Q10H CORY Administration Morphine Sulfate 2 mg 03/03/25 19:50 Morphine 2mg/Ml Syringe IV 04/02/25 19:49 Q4HP PRN Severe Pain (7-10) Ondansetron HCl 4 mg 03/03/25 19:50 Ondansetron 4mg/2ml Vial IV 04/02/25 19:49 Q8HP PRN Nausea Sodium Chloride 10 ml 03/03/25 19:50 Sodium Chloride 0.9% 10ml Flush Syringe IV 04/02/25 19:49 NEEDED PRN Maintain IV Site Discontinued Medications Generic Name Dose Route Start Last Admin Trade Name Freq PRN Reason Stop Dose Admin Iopamidol 80 ml 03/03/25 16:34 03/03/25 16:35 Iopamidol-370 (76%);100ml Bottle IV 03/03/25 16:35 80 ml ONCE ONE Administration Sodium Chloride 50 ml 03/03/25 16:34 03/03/25 16:35 0.9 % Sodium Chloride 50 Ml Vial IV 03/03/25 16:35 50 ml ONCE ONE Administration Sodium Chloride 10 ml 03/03/25 16:34 03/03/25 16:35 Sodium Chloride 0.9% 10ml Syr (Rad Only) IV 03/03/25 16:35 10 ml ONCE ONE Administration ORDERS Category Date Time Status Type and Screen Stat BBK 03/03/25 15:[address] angio abd/pel - GI Bleed Stat Cat Scan 03/03/25 15:41 Completed Complete Blood Count Auto Diff Stat Lab 03/03/25 15:27 Completed Comprehensive Metabolic Panel Stat Lab 03/03/25 15:27 Completed Hemoglobin and Hematocrit Stat Lab 03/03/25 18:30 Completed Lactic Acid Stat Lab 03/03/25 15:38 Completed Lipase Stat Lab 03/03/25 15:27 Completed Occult Blood,Stool Stat Lab 03/03/25 Completed PT INR [Prothrombin Time INR] Stat Lab 03/03/25 15:27 Completed PTT [Activated Partial Thrombo Time] Stat Lab 03/03/25 15:27 Completed Critical Care <JEANETTE Millan - Last Filed: 03/03/25 19:43> Critical Care Time Critical Care Time: No <Jean Marie Medina MD - Last Filed: 03/03/25 22:46> Critical Care Time Critical Care Time: Yes Attestation: On 03/03/25, the high probability of a clinically significant, sudden or life threatening deterioration of the following system(s) required my full and direct attention, intervention and personal management. The time I documented below is in addition to time spent performing reported procedures but includes the following listed in this critical care notation. Total Time Total Critical Care Time: 35
[2025-03-03 15:37] LABS: Hematocrit 32.3 % (42.0-52.0); Hemoglobin 11.3 g/dL (14.1-18.0); Immature Granulocytes % 0.3 %; Mean Corpuscular HGB Conc 35.0 g/dL (31.8-35.4); Mean Corpuscular Hemoglobin 31.9 pg (27.0-31.2); Mean Corpuscular Volume 91.2 fl (80-94); Nucleated Red Blood Cells % 0 %; Platelet Count 308 K/mm3 (142-424); Red Blood Count 3.54 M/mm3 (4.60-6.20); Red Cell Distribution Width-SD 42.9 fL; White Blood Count 10.2 K/mm3 (4.8-10.8)
--- NOTE | 2025-03-03 15:41 | CT_ITS ---
PROCEDURE INFORMATION: Exam: CTA Abdomen and Pelvis With Contrast Exam date and time: 03/03/2025 4:30 PM Age: 59 years old Clinical indication: Other: Brbpr; Additional info: Colonoscopy yesterday, brbpr TECHNIQUE: Imaging protocol: Computed tomographic angiography of the abdomen and pelvis with contrast. Exam focused on the arteries. 3D rendering (Not supervised by radiologist): MIP and/or 3D reconstructed images were created by the technologist. Radiation optimization: All CT scans at this facility use at least one of these dose optimization techniques: automated exposure control; mA and/or kV adjustment per patient size (includes targeted exams where dose is matched to clinical indication); or iterative reconstruction. Contrast material: ISOVUE 370; Contrast volume: 80 ml; Contrast route: INTRAVENOUS (IV); COMPARISON: US TESTICULAR 03/12/2023 7:10 PM FINDINGS: Aorta: No aortic aneurysm or dissection. 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 No occlusion or significant stenosis. Renal arteries: No aneurysm, occlusion, or significant stenosis. Right iliac arteries: No aneurysm, occlusion, or significant stenosis. Left iliac arteries: No aneurysm, occlusion, or significant stenosis. Liver: Unremarkable. Gallbladder and biliary ducts: Unremarkable. Pancreas: Unremarkable. Spleen: Unremarkable. Adrenal glands: Unremarkable. Kidneys and ureters: Unremarkable. Stomach and bowel: No evidence of active contrast extravasation, hematoma, bowel wall mass or perforation. Appendix: Appendix is visualized and is normal. Intraperitoneal space: No free fluid. No pneumoperitoneum. Lymph nodes: Unremarkable. Urinary bladder: Unremarkable. Reproductive: Unremarkable. Bones/joints: No acute osseous abnormality. Bilateral L5 pars defects with grade 1 anterolisthesis of L5 on S1. Severe degenerative disc disease in the lumbar spine. No evidence of meningocele. Incomplete fusion of the sacral spines consistent with congenital spina bifida occulta. Soft tissues: Unremarkable. IMPRESSION: 1. No evidence of active gastrointestinal bleeding at the time of this exam. 2. Bilateral L5 pars defects with grade 1 anterolisthesis of L5 on S1. 3. Sacrum spina bifida occulta. 4. Additional chronic and/or non-acute ancillary findings are detailed above.
--- NOTE | 2025-03-03 15:43 | ECG_ITS ---
APPROVED REPORT Exam: Resting ECG HR:72 bpm ECG Measurements Heart Rate 72 AXES NM 153 P 24 QRSd 113 QRS -16 QT 381 T 5 QTc 405 Conclusion SINUS RHYTHM LOW QRS VOLTAGE IN PRECORDIAL LEADS [QRS DEFLECTION < 1.0 mV IN CHEST LEADS] INCOMPLETE RIGHT BUNDLE BRANCH BLOCK [90+ ms QRS DURATION, TERMINAL R IN V1/V2, 40+ ms S IN I/aVL/V4/V5/V6] BORDERLINE ECG UNCONFIRMED REPORT Electronically signed by : Devang Medina, 03/03/2025 23:27:30
[2025-03-03 15:52] LABS: Albumin Level 4.2 g/dl (3.5-5.0); Chloride 92 mmol/L (98-107); Potassium 4.2 mmoL/L (3.5-5.1); Sodium 130 mmol/L (136-145)
[2025-03-03 15:55] LABS: Alanine Aminotransferase 31 U/L (12-78); Albumin/Globulin Ratio 1.8 (1.1-1.8); Alkaline Phosphatase 73 U/L (38-126); Anion Gap 13.2 mEq/L (5-15); Aspartate Amino Transferase 30 U/L (17-59); Bilirubin,Total 0.2 mg/dl (0.2-1.3); Blood Urea Nitrogen 11 mg/dl (9-20); Calcium 8.7 mg/dl (8.4-10.2); Carbon Dioxide 29 mmol/L (22.0-30.0); Creatinine Clearance Estimated 170 mL/min (50-200); Creatinine,Serum 0.70 mg/dl (0.66-1.25); Estimated Glomerular Filt Rate 116 ml/min (>60); GFR (African American) 140 ML/MIN (>60); Globulin 2.4 g/dL (1.3-3.2); Glucose 112 mg/dl (74-100); Lipase 57 U/L (23-300); Total Protein,Serum 6.6 g/dl (6.3-8.2)
[2025-03-03 15:56] LABS: Activated Partial Thrombo Time 25.7 seconds (22.8-30.6); INR 1.00 (0.9-1.1); Prothrombin Time 11.1 seconds (10.1-12.5)
[2025-03-03] MEDS: 0.9 % SODIUM CHLORIDE 50 ML VIAL IV (16:35)
[2025-03-03] MEDS: SODIUM CHLORIDE 0.9% 10ML SYR (RAD ONLY) 10 ML IV (16:35)
[2025-03-03] MEDS: IOPAMIDOL-370 (76%);100ML BOTTLE 80 ML IV (16:35)
[2025-03-03 16:46] LABS: Occult Blood,Stool Positive (Negative)
--- NOTE | 2025-03-03 17:36 | PC.NURSE ---
called [facility] in [place] per JEANETTE Appiah to get information for retail inventory control clerk physician and which hospital physician is retail inventory control clerk at. was directed to call [place] [facility] per voice recording at [facility]. [facility] society exchange then directed me to call buddhist. [employer] was called and hospitalist will be calling back.
--- NOTE | 2025-03-03 18:27 | PC.NURSE ---
Karin spoke with muslim, they do not cover Dr Andrea. so they can not consult him. they are going to reach out to someone and see if it is possible. advised they will call back.
[2025-03-03 19:03] LABS: Hematocrit 32.5 % (42.0-52.0); Hemoglobin 11.3 g/dL (14.1-18.0)
--- NOTE | 2025-03-03 19:55 | P.HP_ITS ---
<Statement entered by Froilan Lisa MD - 03/09/25 15:52> Agree with plan of care as outlined by the LIGHT EQUIPMENT OPERATOR. History of Present Illness *Admission Date: 03/03/25 *Reason for visit:: Bright red blood per rectum *History of present illness: This is a 59-year-old male who has a past medical history significant for right wrist pain, GERD, and hypertension who presents with a chief complaint of bright red blood per rectum. Due to patient's symptoms, he presented to the emergency room for evaluation. While in the emergency room, CTA of the abdomen and pelvis revealed no evidence of acute gastrointestinal bleeding, bilateral L5 parous defects with grade 1 anterolisthesis of L5 on S1, and sacrum spina bifida occulta. Patient recently underwent colonoscopy with removal of polyp. His primary GI specialist was contacted and recommended patient be monitored. GI specialist in house voiced willingness to evaluate patient for potential flex sigmoidoscopy. As result of his recommendation, hospital medicine was consulted. During my evaluation of the patient, patient states that he had a colonoscopy performed yesterday with removal polyp. Patient states he has these performed every 6 months due to increased risk for colon cancer. With each colonoscopy, patient has had to have a polyp removed. He had a similar incident in 2013 with bright red blood per rectum post colonoscopy and polyp removal. Patient voices having multiple stools of bright red blood that filled the toilet bowl. He also had an incident where he became lightheaded and passed out. He is currently denying any lightheadedness, dizziness, fever, chills, rigors, nausea, vomiting, shortness of breath, hematemesis, melena stools, hematuria, or diarrhea. Additional pertinent vitals obtained include a red blood cell count of 3.54, hemoglobin 11.3 32.3, neutrophils 83.1%, sodium 130, chloride 92, blood glucose 112, and patient's stool was positive for occult blood. [facility] Disclaimer: The information contained in this section may have been updated after the patient was seen, as this information can be updated by other users. Medical History History of arthroplasty of right wrist History of gastroesophageal reflux (GERD) Hypertension Surgical History Hx of total knee replacement Social History Smoking Status: Never smoker alcohol intake: never current occupational status: other Travel in the last 8 weeks?: None Have you lived/traveled outside US in past 30 days?: No Contact w/someone who lives/traveled outside US past 30 days?: No Exposure to someone with infectious disease in past 14 days?: No Do you have a fever (greater than 100.4 F or 38 C)?: No Have you tested positive for COVID-19?: No Exposed to someone with COVID-19 in past 14 days?: No Do you have a sore throat?: No Do you have a cough?: No Do you have any weakness?: No Do you have any diarrhea?: No Are you experiencing any unusual bleeding?: No Do you have any muscle aches/pain?: No Do you have any abdominal pain?: No Are you experiencing loss of taste or smell?: No Other Medical History Have you received the Flu Vaccine for this season: Yes Have you received the Pneumonia Vaccine: No Review of Systems Review of Systems Review of systems:: pertinent systems reviewed and negative unless documented below Constitutional Constitutional: Reports system reviewed and no additional complaints, except as documented Eyes Eyes: Reports system reviewed and no additional complaints, except as documented ENT Ears, Nose, Mouth, and Throat: Reports system reviewed and no additional complaints, except as documented *Cardiovascular Cardiovascular: Reports system reviewed and no additional complaints, except as documented *Respiratory Respiratory: Reports system reviewed and no additional complaints, except as documented *Gastrointestinal Gastrointestinal: Reports hematochezia *Genitourinary Genitourinary: Reports system reviewed and no additional complaints, except as documented *Musculoskeletal Musculoskeletal: Reports system reviewed and no additional complaints, except as documented Integumentary/Breasts Skin/Breast: Reports system reviewed and no additional complaints, except as documented *Neurologic Neurologic: Reports system reviewed and no additional complaints, except as documented Psychiatric Psychiatric: Reports system reviewed and no additional complaints, except as documented Endocrine Endocrine: Reports system reviewed and no additional complaints, except as documented Hematologic/Lymphatic Hematologic/Lymphatic: Reports system reviewed and no additional complaints, except as documented Allergic/Immunologic Allergic/Immunologic: Reports system reviewed and no additional complaints, except as documented Meds Home Medications and Allergies Home Medications ?Medication ?Instructions ?Recorded ?Confirmed ?Type amlodipine 5 mg tablet 5 mg PO DAILY 03/12/2312/23 History enalapril maleate 20 mg tablet 40 mg PO DAILY 03/12/23 12/23/24 History lansoprazole 30 mg capsule,delayed 30 mg PO DAILY 03/0112/23/24 History release venlafaxine 75 mg capsule,extended 75 mg PO DAILY 03/0112/23/24 History release 24 hr guaifenesin 600 mg tablet, 600 mg PO Q12H PRN congesti on #30 12/23/24 12/23/24 Rx extended release 12 hr tabs tadalafil 5 mg tablet mg PO 12/23/24 12/23/24 Hist ory New Prescriptions to Start Prescriptions: Allergies Allergy/AdvReac Type Severity Reaction Status Date / Time Penicillins Allergy Mild Unknown Verified 12/23/24 12:11 allergy reaction Exam Data for Last 24 hours Vital signs and Labs for Last 24 Hours: Temp Pulse Resp BP Pulse Ox O2 Del Method 98.6 F 90 16 127/87 99 Room Air 03/03/25 15:00 03/03/25 18:00 03/03/25 15:00 03/03/25 18:00 03/03/25 18:00 03/03/25 15:00 Laboratory Results - last 24 hr 03/03/25 15:27: WBC 10.2, RBC 3.54 L, Hgb 11.3 L, Hct 32.3 L, MCV 91.2, MCH 31.9 H, MCHC 35.0, RDW 12.8, Plt Count 308, MPV 8.8, Neut % (Auto) 83.1 H, Lymph % (Auto) 9.1 L, [place] % (Auto) 6.6, Eos % (Auto) 0.6, Baso % (Auto) 0.3, Neut # (Auto) 8.4 H, Lymph # (Auto) 0.9, [place] # (Auto) 0.7, Eos # (Auto) 0.1, Baso # (Auto) 0.0, PT 11.1, INR 1.00, APTT 25.7, Sodium 130 L, Potassium 4.2, Chloride 92 L, Carbon Dioxide 29, Anion Gap 13.2, BUN 11, Creatinine 0.70, Estimated Creat Clear 170, Estimated GFR 116, Est GFR ( Amer) 140, Glucose 112 H, Calcium 8.7, Total Bilirubin 0.2, AST 30, ALT 31, Alkaline Phosphatase 73, Total Protein 6.6, Albumin 4.2, Globulin 2.4, Albumin/Globulin Ratio 1.8, Lipase 57 03/03/25 15:38: Lactate 1.0, Blood Type O Positive, Antibody Screen Negative 03/03/25 18:30: Hgb 11.3 L, Hct 32.5 L 03/03/25 : Stool Occult Blood Positive A I & O for Last 24 hours: Intake & Output 02/28/25 03/01/25 03/02/25 03/03/25 23:59 23:59 23:59 23:59 Weight 104.326 kg Constitutional Constitutional: no acute distress, obese and cooperative *Routine HEENT Exam Head: Present normocephalic and atraumatic Eye: Present EOMI, PERRL and normal accommodation ENT: Present mucous membranes moist *Routine Neck Exam Neck: Present supple, full ROM and trachea midline *Routine Respiratory Exam Respiratory: Present CTA bilaterally, normal respiratory effort, able to speak in complete sentences and symmetric chest movement *Routine Cardiovascular Exam Cardiovascular: Present RRR, Normal S1 and Normal S2 *Routine Abdominal Exam Abdominal: Present soft, normoactive bowel sounds and obese *Routine Rectal Exam Rectal:: deferred *Routine Genitalia Exam Genitalia:: deferred *Routine Extremities Exam Extremities: Present full ROM, pulses intact and normal capillary refill Routine Back/Spine/Pelvis Exam Back/Spine: Present full ROM *Routine Skin Exam Skin: Present intact, dry, warm and normal turgor *Routine Neurological Exam Neurological: Present alert, oriented X3, CN II-XII intact, moving all extremities and normal speech Routine Psychiatric Exam Psychiatric: Present normal affect, normal thought process, cooperative, good insight and good judgment H&P: Result Impressions 59-year-old male who is status post colonoscopy with polyp removal yesterday presents with bright red blood per rectum with stable hemoglobin Assessment and Plan *Assessment and plan (1) BRBPR (bright red blood per rectum): Status: Acute Category: Medical Code(s): K62.5 - Hemorrhage of anus and rectum (2) Hematochezia: Status: Acute Category: Medical Code(s): K92.1 - Melena (3) Syncope: Status: Acute Qualifiers: Syncope type: vasovagal syncope Qualified Code(s): R55 - Syncope and collapse Category: Medical Code(s): R55 - Syncope and collapse Plan Assessment: GI bleed Bright red blood per rectum/hematochezia Status post colonoscopy with polyp removal: Postop day 1 Surgical complication - Currently patient has stable hemoglobin hematocrit - Will trend hemoglobin hematocrit every 6 hours - Follow the recommendations of GI specialist in house and make patient n.p.o. after midnight clear liquids now - If patient hemoglobin and hematocrit diminished significantly, will type and screen and transfuse packed red blood cells Near syncope versus syncope - More than likely patient's syncopal episode was due to vasovagal - Will place patient on cardiac monitoring - Will consider 2D echo - Will consider job analyst consultation Plan: Admit patient to the MedSurg unit on telemetry Vital signs every 4 hours SCDs to bilateral lower extremity Consult Dr. Marion in a.m. Clear liquid diet CBC/BMP daily Normal saline at 100 mL an hour 5 mg [place] p.o. every 4 hours PMR pain 2 mg morphine IV push every 4 hours as needed severe pain 4 mg Zofran IV push 3 hours pain nausea vomit Full code I discussed this case with attending physician Dr. Lsia and I look forward to more input
--- NOTE | 2025-03-03 20:13 | PC.NURSE ---
Report called to Lucina RAMÍREZ on [facility]
[2025-03-03] MEDS: 0.9 % SODIUM CHLORIDE 1000ML 1,000 ML 100 ML IV (20:58)
--- NOTE | 2025-03-03 21:00 | PC.NURSE ---
Patient arrived to floor via wheelchair from ED at 20:49.
[2025-03-04] VITALS (7 sets, daily range): BP systolic 106–150; BP diastolic 64–82; PULSE 70–90; RESP 14–18; TEMP 36.5–36.9; O2SAT 95–99; BMI 33.9
[2025-03-04 01:48] LABS: Hematocrit 27.9 % (42.0-52.0)
[2025-03-04 01:51] LABS: Hemoglobin 9.6 g/dL (14.1-18.0)
[2025-03-04] MEDS: ACETAMINOPHEN 325MG TAB 650 MG PO (03:55)
--- NOTE | 2025-03-04 04:15 | PC.NURSE ---
Mr Bao Johnson was newly admitted this shift on behalf of the documented diagnoses bleeding from rectum and syncopal episode. Admission assessments and home medication reconciliation were completed by me. Physical assessment was performed (see nursing shift biophysical intervention) as appropriately for this shift. He is pleasantly alert and oriented x4. Patient has not had any complaints of abdominal pain, dizziness, lightheadedness, shortness of breath, etc. this shift. Patient did complain of having constant, chronic knee pain (history of replacement) this morning of which Tylenol was given per MAY. He ambulates independently with standby assistance as needed in his room/to the bathroom. Patient has had multiple voids and passed a smear of dark red stool in lumps. Monitoring hemoglobin/hematocrit trends. Vital signs stable. On telemetry. Tolerated a clear liquid diet, has remained NPO since midnight pending gastroenterology consult recommendations. Normal saline is infusing at 100 mL/hr. At this time, the patient remains resting in bed without any further complaints. No acute changes noted thus far. Call light within reach.
[2025-03-04 06:21] LABS: Hematocrit 26.0 % (42.0-52.0); Hemoglobin 9.1 g/dL (14.1-18.0); Immature Granulocytes % 0.2 %; Mean Corpuscular HGB Conc 35.0 g/dL (31.8-35.4); Mean Corpuscular Hemoglobin 31.7 pg (27.0-31.2); Mean Corpuscular Volume 90.6 fl (80-94); Nucleated Red Blood Cells % 0 %; Platelet Count 272 K/mm3 (142-424); Red Blood Count 2.87 M/mm3 (4.60-6.20); Red Cell Distribution Width-SD 42.6 fL; White Blood Count 5.9 K/mm3 (4.8-10.8)
[2025-03-04 06:26] LABS: Chloride 96 mmol/L (98-107); Potassium 3.9 mmoL/L (3.5-5.1); Sodium 133 mmol/L (136-145)
[2025-03-04 06:29] LABS: Anion Gap 10.9 mEq/L (5-15); Blood Urea Nitrogen 8 mg/dl (9-20); Carbon Dioxide 30 mmol/L (22.0-30.0); Creatinine Clearance Estimated 169 mL/min (50-200); Creatinine,Serum 0.70 mg/dl (0.66-1.25); Estimated Glomerular Filt Rate 116 ml/min (>60); GFR (African American) 140 ML/MIN (>60)
[2025-03-04 07:01] LABS: Calcium 8.2 mg/dl (8.4-10.2); Glucose 105 mg/dl (74-100)
--- NOTE | 2025-03-04 07:21 | P.CONS_ITS ---
History of Present Illness *Admission Date: 03/03/25 *History of present illness: Mr. Johnson is a 59-year-old gentleman who is admitted secondary to post colonoscopy post polypectomy lower GI bleed. The patient did have a colonoscopy on Saturday around 1030?11 AM (David Andrea MD at [facility]) and this was a surveillance colonoscopy after having a colonoscopy a year ago at which time he had a more advanced adenoma of the cecum that was removed via endoscopic mucosal resection. At that time he states that endoclips were placed. This time, there was scar tissue identified at the base of the previous EMR in the cecum and this was resected via cold snare. No clips were placed. There was also a 20 mm broad-based subtle lesion seen in the ascending colon and submucosal injection and endoscopic snare resection was performed. The procedure report does not state whether this was done cold or hot and it does not show whether endoclips were placed. The patient does state that his hematochezia began yesterday and he had 3 bouts in total. His last bout was in the ED last evening. He did have passage of a very small amount of clot later in the evening. He does have some gas discomfort in the lower abdomen. He is not on any anticoagulation and has not taken any aspirin or NSAIDs. He reports no heavy lifting or exercise after the colonoscopy. [facility] Disclaimer: The information contained in this section may have been updated after the patient was seen, as this information can be updated by other users. Medical History History of arthroplasty of right wrist History of gastroesophageal reflux (GERD) Hypertension Surgical History Hx of total knee replacement Family History Brother Anal cancer Grandfather Lung cancer Social History (Updated 03/03/25 @ 21:34 by Lucina Pearson RN) Smoking Status: Never smoker alcohol intake: never current occupational status: employed Travel in the last 8 weeks?: None Have you lived/traveled outside US in past 30 days?: No Contact w/someone who lives/traveled outside US past 30 days?: No Exposure to someone with infectious disease in past 14 days?: No Do you have a fever (greater than 100.4 F or 38 C)?: No Have you tested positive for COVID-19?: No Exposed to someone with COVID-19 in past 14 days?: No Do you have a sore throat?: No Do you have a cough?: No Do you have any weakness?: No Do you have any diarrhea?: No Are you experiencing any unusual bleeding?: No Do you have any muscle aches/pain?: No Do you have any abdominal pain?: No Are you experiencing loss of taste or smell?: No Review of Systems *Neurologic Neurologic: Reports system reviewed and no additional complaints, except as documented Meds Home Medications and Allergies Home Medications ?Medication ?Instructions ?Recorded ?Confirmed ?Type amlodipine 5 mg tablet 5 mg PO DAILY 03/12/2303/03 History enalapril maleate 20 mg tablet 40 mg PO DAILY 03/12/23 03/03/25 History lansoprazole 30 mg capsule,delayed 30 mg PO DAILY 03/0103/03/25 History release venlafaxine 75 mg capsule,extended 75 mg PO DAILY 03/0103/03/25 History release 24 hr New Prescriptions to Start Prescriptions: Allergies Allergy/AdvReac Type Severity Reaction Status Date / Time Penicillins Allergy Mild Unknown Verified 12/23/24 12:11 allergy reaction Exam (Inpt) Vital signs and Labs for Last 24 Hours: Temp Pulse Resp BP Pulse Ox O2 Del Method 97.7 F 76 14 115/64 97 Room Air 03/04/25 04:00 03/04/25 04:00 03/04/25 04:00 03/04/25 04:00 03/04/25 04:00 03/04/25 06:40 Laboratory Results - last 24 hr 03/03/25 15:27: WBC 10.2, RBC 3.54 L, Hgb 11.3 L, Hct 32.3 L, MCV 91.2, MCH 31.9 H, MCHC 35.0, RDW 12.8, Plt Count 308, MPV 8.8, Neut % (Auto) 83.1 H, Lymph % (Auto) 9.1 L, [place] % (Auto) 6.6, Eos % (Auto) 0.6, Baso % (Auto) 0.3, Neut # (Auto) 8.4 H, Lymph # (Auto) 0.9, Christian # (Auto) 0.7, Eos # (Auto) 0.1, Baso # (Auto) 0.0, PT 11.1, INR 1.00, APTT 25.7, Sodium 130 L, Potassium 4.2, Chloride 92 L, Carbon Dioxide 29, Anion Gap 13.2, BUN 11, Creatinine 0.70, Estimated Creat Clear 170, Estimated GFR 116, Est GFR ( Amer) 140, Glucose 112 H, Calcium 8.7, Total Bilirubin 0.2, AST 30, ALT 31, Alkaline Phosphatase 73, Total Protein 6.6, Albumin 4.2, Globulin 2.4, Albumin/Globulin Ratio 1.8, Lipase 57 03/03/25 15:38: Lactate 1.0, Blood Type O Positive, Antibody Screen Negative 03/03/25 18:30: Hgb 11.3 L, Hct 32.5 L 03/03/25 : Stool Occult Blood Positive A 03/04/25 01:42: Hgb 9.6 L D, Hct 27.9 L 03/04/25 05:46: WBC 5.9 D, RBC 2.87 L, Hgb 9.1 L, Hct 26.0 L, MCV 90.6, MCH 31.7 H, MCHC 35.0, RDW 12.9, Plt Count 272, MPV 8.9, Neut % (Auto) 69.1, Lymph % (Auto) 19.1, Christian % (Auto) 9.1, Eos % (Auto) 2.2, Baso % (Auto) 0.3, Neut # (Auto) 4.1, Lymph # (Auto) 1.1, Christian # (Auto) 0.5, Eos # (Auto) 0.1, Baso # (Auto) 0.0, Sodium 133 L, Potassium 3.9, Chloride 96 L, Carbon Dioxide 30, Anion Gap 10.9, BUN 8 L D, Creatinine 0.70, Estimated Creat Clear 169, Estimated GFR 116, Est GFR ( Amer) 140, Glucose 105 H, Calcium 8.2 L I & O for Labs for Last 24 Hours: Intake & Output 03/01/25 03/02/25 03/03/25 03/04/25 23:59 23:59 23:59 23:59 Intake Total 710 / 710 Output Total 0 / 0 0 / 0 Balance 0 / 710 710 / 710 Weight 229 lb 1.6 oz 229 lb 1.6 oz Comments:: Normoactive bowel sounds, soft, nondistended, nontender, benign abdomen Results Labs 03/04/25 05:46 03/04/25 05:46 Labs: Laboratory Results - last 24 hr 03/03/25 15:27: WBC 10.2, RBC 3.54 L, Hgb 11.3 L, Hct 32.3 L, MCV 91.2, MCH 31.9 H, MCHC 35.0, RDW 12.8, Plt Count 308, MPV 8.8, Neut % (Auto) 83.1 H, Lymph % (Auto) 9.1 L, [place] % (Auto) 6.6, Eos % (Auto) 0.6, Baso % (Auto) 0.3, Neut # (Auto) 8.4 H, Lymph # (Auto) 0.9, Christian # (Auto) 0.7, Eos # (Auto) 0.1, Baso # (Auto) 0.0, PT 11.1, INR 1.00, APTT 25.7, Sodium 130 L, Potassium 4.2, Chloride 92 L, Carbon Dioxide 29, Anion Gap 13.2, BUN 11, Creatinine 0.70, Estimated Creat Clear 170, Estimated GFR 116, Est GFR ( Amer) 140, Glucose 112 H, Calcium 8.7, Total Bilirubin 0.2, AST 30, ALT 31, Alkaline Phosphatase 73, Total Protein 6.6, Albumin 4.2, Globulin 2.4, Albumin/Globulin Ratio 1.8, Lipase 57 03/03/25 15:38: Lactate 1.0, Blood Type O Positive, Antibody Screen Negative 03/03/25 18:30: Hgb 11.3 L, Hct 32.5 L 03/03/25 : Stool Occult Blood Positive A 03/04/25 01:42: Hgb 9.6 L D, Hct 27.9 L 03/04/25 05:46: WBC 5.9 D, RBC 2.87 L, Hgb 9.1 L, Hct 26.0 L, MCV 90.6, MCH 31.7 H, MCHC 35.0, RDW 12.9, Plt Count 272, MPV 8.9, Neut % (Auto) 69.1, Lymph % (Auto) 19.1, [place] % (Auto) 9.1, Eos % (Auto) 2.2, Baso % (Auto) 0.3, Neut # (Auto) 4.1, Lymph # (Auto) 1.1, Christian # (Auto) 0.5, Eos # (Auto) 0.1, Baso # (Auto) 0.0, Sodium 133 L, Potassium 3.9, Chloride 96 L, Carbon Dioxide 30, Anion Gap 10.9, BUN 8 L D, Creatinine 0.70, Estimated Creat Clear 169, Estimated GFR 116, Est GFR ( Amer) 140, Glucose 105 H, Calcium 8.2 L Assessment and Plan *Assessment and plan (1) Hematochezia: Status: Acute Category: Medical Code(s): K92.1 - Melena (2) Post-polypectomy bleeding: Status: Acute Category: Medical Plan 1. Lower GI bleed/hematochezia and this is post colonoscopy/post polypectomy bleeding. I did state that blood is a cathartic and if he has not had blood now in 8 to 10 hours, this may have stopped on its own without intervention. If the patient has any further hematochezia today, we will plan repeat bowel preparation and colonoscopy with plans for control of the hemorrhage at the polypectomy site with epinephrine or Endo Clip placement. I have discussed this plan with the patient.
[2025-03-04] MEDS: 0.9 % SODIUM CHLORIDE 1000ML 1,000 ML 100 ML IV (07:30)
[2025-03-04] MEDS: LISINOPRIL 20MG TABLET 40 MG PO (09:56)
[2025-03-04] MEDS: AMLODIPINE 5MG TABLET 5 MG PO (09:57)
[2025-03-04] MEDS: VENLAFAXINE XR 75MG CAPSULE 75 MG PO (09:57)
[2025-03-04 12:05] LABS: Hematocrit 26.9 % (42.0-52.0); Hemoglobin 9.0 g/dL (14.1-18.0)
--- NOTE | 2025-03-04 13:35 | P.PN_ITS ---
<Statement entered by Froilan Lisa MD - 03/09/25 15:51> Agree with plan of care as outlined by the COUNTY BAILIFF. Subjective *Date: 03/04/25 *Time: 13:46 Interval history: Patient is doing well, sitting up in bed. Tolerating clear liquid diet without issues. Denies abdominal pain, nausea, vomiting, diarrhea. Patient states he did have a bowel movement last night around 11 PM containing blood clots. He has had no bowel movements today. Continuing IV fluids at this time, interactive discussion with GI?recommends monitoring for 24 hours from post hematochezia, advancing diet to full liquids for dinner. Medical Exam Vital signs and Labs for Last 24 Hours: Vital Signs Temp Pulse Pulse Pulse Pulse Pulse Pulse 03/04/25 12:32 03/04/25 12:00 98 F 74 03/04/25 10:05 03/04/25 09:00 03/04/25 08:30 74 78 80 03/04/25 08:00 03/04/25 08:00 98 F 74 03/04/25 06:40 03/04/25 05:00 03/04/25 04:00 70 03/04/25 04:00 97.7 F 76 03/04/25 03:00 03/04/25 01:00 03/04/25 00:00 70 03/03/25 23:55 97.8 F 72 03/03/25 23:00 03/03/25 21:20 03/03/25 21:06 97.6 F 93 H 03/03/25 21:00 90 03/03/25 21:00 03/03/25 21:00 98.6 F 84 03/03/25 20:00 84 03/03/25 20:00 03/03/25 19:45 82 03/03/25 19:30 03/03/25 19:30 84 03/03/25 19:15 99 H 03/03/25 18:00 90 03/03/25 17:30 95 H 03/03/25 17:00 82 03/03/25 16:44 83 03/03/25 16:17 81 03/03/25 15:30 74 03/03/25 15:00 98.6 F 85 Resp BP BP BP BP BP Pulse Ox 03/04/25 12:32 03/04/25 12:00 16 110/70 96 03/04/25 10:05 03/04/25 09:00 03/04/25 08:30 106/69 L 120/77 137/76 03/04/25 08:00 03/04/25 08:00 16 119/73 96 03/04/25 06:40 03/04/25 05:00 03/04/25 04:00 03/04/25 04:00 14 115/64 97 03/04/25 03:00 03/04/25 01:00 03/04/25 00:00 03/03/25 23:55 16 132/80 98 03/03/25 23:00 03/03/25 21:20 03/03/25 21:06 18 144/79 H 94 L 03/03/25 21:00 03/03/25 21:00 03/03/25 21:00 18 130/89 03/03/25 20:00 100 03/03/25 20:00 130/89 03/03/25 19:45 99 03/03/25 19:30 165/99 H 03/03/25 19:30 98 03/03/25 19:15 98 03/03/25 18:00 127/87 99 03/03/25 17:30 131/91 H 97 03/03/25 17:00 152/95 H 98 03/03/25 16:44 156/98 H 96 03/03/25 16:17 174/85 H 97 03/03/25 15:30 143/94 H 97 03/03/25 15:00 16 147/95 H 100 O2 Del Method 03/04/25 12:32 Room Air 03/04/25 12:00 03/04/25 10:05 Room Air 03/04/25 09:00 Room Air 03/04/25 08:30 03/04/25 08:00 Room Air 03/04/25 08:00 Room Air 03/04/25 06:40 Room Air 03/04/25 05:00 Room Air 03/04/25 04:00 03/04/25 04:00 Room Air 03/04/25 03:00 Room Air 03/04/25 01:00 Room Air 03/04/25 00:00 03/03/25 23:55 Room Air 03/03/25 23:00 Room Air 03/03/25 21:20 Room Air 03/03/25 21:06 Room Air 03/03/25 21:00 03/03/25 21:00 Room Air 03/03/25 21:00 Room Air 03/03/25 20:00 Room Air 03/03/25 20:00 03/03/25 19:45 Room Air 03/03/25 19:30 03/03/25 19:30 Room Air 03/03/25 19:15 Room Air 03/03/25 18:00 03/03/25 17:30 03/03/25 17:00 03/03/25 16:44 03/03/25 16:17 03/03/25 15:30 03/03/25 15:00 Room Air Intake and Output 03/03/25 03/04/25 03/04/25 23:59 07:59 15:59 Intake Total 1710 / 1950 240 / 1950 Output Total 0 / 0 0 / 0 Balance 0 / 710 1710 / 1950 240 / 1950 Intake: Intake, Oral Amount 710 / 950 240 / 950 Intake, Total IV Amount 1000 / 1000 0.9 % Sodium Chloride 1000ML 1, 1000 / 1000 000 ml @ 100 mls/hr IV .Q10H [facility] Rx#:[id number] Output: Output, Urine Amount 0 / 0 0 / 0 Other: Number of Unmeasured Voids 1 1 Number of Bowel Movements 1 Weight 103.918 kg 103.918 kg Patient Weight 03/04/25 23:59 Weight 103.918 kg Laboratory Results - last 24 hr 03/03/25 15:27: WBC 10.2, RBC 3.54 L, Hgb 11.3 L, Hct 32.3 L, MCV 91.2, MCH 31.9 H, MCHC 35.0, RDW 12.8, Plt Count 308, MPV 8.8, Neut % (Auto) 83.1 H, Lymph % (Auto) 9.1 L, [place] % (Auto) 6.6, Eos % (Auto) 0.6, Baso % (Auto) 0.3, Neut # (Auto) 8.4 H, Lymph # (Auto) 0.9, [place] # (Auto) 0.7, Eos # (Auto) 0.1, Baso # (Auto) 0.0, PT 11.1, INR 1.00, APTT 25.7, Sodium 130 L, Potassium 4.2, Chloride 92 L, Carbon Dioxide 29, Anion Gap 13.2, BUN 11, Creatinine 0.70, Estimated Creat Clear 170, Estimated GFR 116, Est GFR ( Amer) 140, Glucose 112 H, Calcium 8.7, Total Bilirubin 0.2, AST 30, ALT 31, Alkaline Phosphatase 73, Total Protein 6.6, Albumin 4.2, Globulin 2.4, Albumin/Globulin Ratio 1.8, Lipase 57 03/03/25 15:38: Lactate 1.0, Blood Type O Positive, Antibody Screen Negative 03/03/25 18:30: Hgb 11.3 L, Hct 32.5 L 03/03/25 : Stool Occult Blood Positive A 03/04/25 01:42: Hgb 9.6 L D, Hct 27.9 L 03/04/25 05:46: WBC 5.9 D, RBC 2.87 L, Hgb 9.1 L, Hct 26.0 L, MCV 90.6, MCH 31.7 H, MCHC 35.0, RDW 12.9, Plt Count 272, MPV 8.9, Neut % (Auto) 69.1, Lymph % (Auto) 19.1, [place] % (Auto) 9.1, Eos % (Auto) 2.2, Baso % (Auto) 0.3, Neut # (Auto) 4.1, Lymph # (Auto) 1.1, [place] # (Auto) 0.5, Eos # (Auto) 0.1, Baso # (Auto) 0.0, Sodium 133 L, Potassium 3.9, Chloride 96 L, Carbon Dioxide 30, Anion Gap 10.9, BUN 8 L D, Creatinine 0.70, Estimated Creat Clear 169, Estimated GFR 116, Est GFR ( Amer) 140, Glucose 105 H, Calcium 8.2 L 03/04/25 11:58: Hgb 9.0 L, Hct 26.9 L I & O for Labs for Last 24 Hours: Intake & Output 03/01/25 03/02/25 03/03/25 03/04/25 23:59 23:59 23:59 23:59 Intake Total 1949 Output Total 0 / 0 0 / 0 Balance 0 710 1949 Weight 103.918 kg 103.918 kg Constitutional: Present no acute distress, obese and cooperative Head: Present atraumatic Eyes: Present as per HPI ENT: Present normal exam Neck: Present normal inspection Respiratory: Present CTA bilaterally and normal respiratory effort; Absent wheezes or crackles Cardiac: Present Reg Rate and Rhythm GI: Present soft and normal bowel sounds; Absent distention or tenderness Rectal (male): Present deferred (male): Present deferred Extremities: Present normal inspection and full ROM Skin: Present intact, dry and warm; Absent erythema Neuro: Present Grossly Intact, alert, awake, oriented x 3 and moves all extremities Assessment and Plan *Assessment and plan (1) BRBPR (bright red blood per rectum): Status: Acute Category: Medical Code(s): K62.5 - Hemorrhage of anus and rectum (2) Hematochezia: Status: Acute Category: Medical Code(s): K92.1 - Melena (3) Syncope: Status: Acute Qualifiers: Syncope type: vasovagal syncope Qualified Code(s): R55 - Syncope and collapse Category: Medical Code(s): R55 - Syncope and collapse Plan Mr. Johnson is a 59-year-old male who presented to the emergency department yesterday afternoon after multiple episodes of bloody bowel movements. Patient states that he noticed quite a bit of blood in the toilet bowl and proceeded to have a syncopal episode. No notable injuries from fall. Patient states he had a colonoscopy the day before and has been experiencing bloody bowel movements since. He states he has had a similar episode with a previous colonoscopy after they removed polyps. The emergency department attempted to contact his GI physician but were unable to reach him. GI, Dr. Marion with our facility was contacted for recommendations, recommended patient be observed, regular H&H, and possible colonoscopy if bleeding continues. Patient remained hemodynamically stable in the emergency department and was ultimately admitted to the medical surgical floor for continued monitoring. Plan of care as follows: #BRB [place]/hematochezia #Gastrointestinal bleeding #S/p colonoscopy with polypectomy ?Patient placed in observation on medical surgical floor, vital signs remained stable during admission. Dr. Marion with GI consulted recommendations for serial H&H's and clear liquid diet. ?Patient initial hemoglobin 11.3, trended downward to 9.6 but has been stable at 9. Interactive discussion with Dr. Marion who recommends patient remain in observation for at least 24 hours post last bloody bowel movement, will keep patient overnight for continued monitoring at this time. Plans to advance patient's diet to full liquids for dinner. ?Patient did have abdomen/pelvis CTA which did not reveal any active gastrointestinal bleeding at the time of exam. ?Patient received IV fluids throughout the day NS 100 mL/H, will discontinue fluids as we advance diet. ?CBC, BMP ordered for the a.m. #Near syncope versus syncope ?Patient states he did have a syncopal possible vasovagal episode at home. Patient denies dizziness, lightheadedness, unsteadiness at this time. Orthostatic vitals unremarkable. ?Cardiac monitoring unremarkable, patient has been nontachycardic and in sinus rhythm during admission. #HTN: Continue home medication of amlodipine 5 mg daily, enalapril 40 mg daily. #GERD: Continue lansoprazole 30 mg daily. #MDD continue venlafaxine 75 mg daily. Full code VTE?SCDs Clears advancing to fulls Ambulate as tolerated
[2025-03-04] MEDS: PANTOPRAZOLE 40MG TABLET 40 MG PO (20:10)
[2025-03-05] VITALS (19 sets, daily range): BP systolic 118–155; BP diastolic 71–95; PULSE 62–112; RESP 16–20; TEMP 36.3–36.9; O2SAT 93–100; BMI 34.1
--- NOTE | 2025-03-05 00:23 | PC.NURSE ---
Notified Mayra hospitalist, of pt passing blood clots in stool. Provider stated that there has been no change since his last bowel movement and no further orders are needed at this time. Pt is currently resting in bed with eyes open. Respirations even and unlabored. Bed is low, locked, and call light is in reach.
[2025-03-05] MEDS: ACETAMINOPHEN 325MG TAB 650 MG PO ×2 (03:29→18:55)
[2025-03-05 06:48] LABS: Hematocrit 26.1 % (42.0-52.0); Hemoglobin 9.1 g/dL (14.1-18.0); Immature Granulocytes % 0.2 %; Mean Corpuscular HGB Conc 34.9 g/dL (31.8-35.4); Mean Corpuscular Hemoglobin 31.4 pg (27.0-31.2); Mean Corpuscular Volume 90.0 fl (80-94); Nucleated Red Blood Cells % 0 %; Platelet Count 298 K/mm3 (142-424); Red Blood Count 2.90 M/mm3 (4.60-6.20); Red Cell Distribution Width-SD 40.7 fL; White Blood Count 4.5 K/mm3 (4.8-10.8)
[2025-03-05] MEDS: AMLODIPINE 5MG TABLET 5 MG PO (08:17)
[2025-03-05] MEDS: VENLAFAXINE XR 75MG CAPSULE 75 MG PO (08:17)
[2025-03-05] MEDS: LISINOPRIL 20MG TABLET 40 MG PO (08:18)
[2025-03-05] MEDS: PEG-ELECTROLYTE SOLN 4000ML BOTTLE 4000 ML PO (08:18)
[2025-03-05 08:27] LABS: Chloride 96 mmol/L (98-107); Potassium 3.8 mmoL/L (3.5-5.1); Sodium 133 mmol/L (136-145)
[2025-03-05 08:30] LABS: Anion Gap 12.8 mEq/L (5-15); Blood Urea Nitrogen 5 mg/dl (9-20); Calcium 8.3 mg/dl (8.4-10.2); Carbon Dioxide 28 mmol/L (22.0-30.0); Creatinine Clearance Estimated 149 mL/min (50-200); Creatinine,Serum 0.80 mg/dl (0.66-1.25); Estimated Glomerular Filt Rate 99 ml/min (>60); GFR (African American) 120 ML/MIN (>60); Glucose 101 mg/dl (74-100)
--- NOTE | 2025-03-05 09:11 | P.DS_ITS ---
General Admission date:: 03/03/25 Discharge date: 03/05/25 HPI HPI HPI: Mr. Johnson is a 59-year-old gentleman who is admitted secondary to post colonoscopy post polypectomy lower GI bleed. The patient did have a colonoscopy on Saturday around 1030?11 AM (David Andrea MD at [facility]) and this was a surveillance colonoscopy after having a colonoscopy a year ago at which time he had a more advanced adenoma of the cecum that was removed via endoscopic mucosal resection. At that time he states that endoclips were placed. This time, there was scar tissue identified at the base of the previous EMR in the cecum and this was resected via cold snare. No clips were placed. There was also a 20 mm broad-based subtle lesion seen in the ascending colon and submucosal injection and endoscopic snare resection was performed. The procedure report does not state whether this was done cold or hot and it does not show whether endoclips were placed. The patient does state that his hematochezia began yesterday and he had 3 bouts in total. His last bout was in the ED last evening. He did have passage of a very small amount of clot later in the evening. He does have some gas discomfort in the lower abdomen. He is not on any anticoagulation and has not taken any aspirin or NSAIDs. He reports no heavy lifting or exercise after the colonoscopy. Hospital Course Hospital Course Hospital Course: Mr. Johnson is a 59-year-old male who presented to the emergency department Saturday afternoon after multiple episodes of bloody bowel movements. Patient states that he noticed quite a bit of blood in the toilet bowl and proceeded to have a syncopal episode. No notable injuries from fall. Patient states he had a colonoscopy the day before and has been experiencing bloody bowel movements since. He states he has had a similar episode with a previous colonoscopy after they removed polyps. The emergency department attempted to contact his GI physician but were unable to reach him. GI, Dr. Marion with our facility was contacted for recommendations, recommended patient be observed, regular H&H, and possible colonoscopy if bleeding continues. Patient remained hemodynamically stable in the emergency department and was ultimately admitted to the medical surgical floor for continued monitoring. Hospital course as follows: #BRB [place]/hematochezia #Gastrointestinal bleeding #S/p colonoscopy with polypectomy ?Initially patient placed on MedSurg for continued observation of hematochezia, patient had multiple episodes during admission. After lengthy discussion with GI, Dr. Marion, it was determined that patient should undergo colonoscopy to assess bleeding. Patient agreeable, tolerated bowel prep well. ?Patient initial hemoglobin 11.3, trended downward to 9.6 but has been stable at 9. ?Patient did have abdomen/pelvis CTA which did not reveal any active gastrointestinal bleeding at the time of exam. ?Patient received IV fluids throughout the day NS 100 mL/H, will discontinue fluids as we advance diet. #Near syncope versus syncope ?Patient states he did have a syncopal possible vasovagal episode at home. Patient denies dizziness, lightheadedness, unsteadiness at this time. Orthostatic vitals unremarkable. ?Cardiac monitoring unremarkable, patient has been nontachycardic and in sinus rhythm during admission. #HTN: Continue home medication of amlodipine 5 mg daily, enalapril 40 mg daily. #GERD: Continue lansoprazole 30 mg daily. #MDD continue venlafaxine 75 mg daily. Total time spent on discharge 32 minutes in counseling, documentation, chart review, and direct care with patient. Exam Data for Last 24 hours Vital signs and Labs for Last 24 Hours: Temp Pulse Resp BP Pulse Ox O2 Del Method 97.8 F 71 18 139/71 97 Room Air 03/05/25 08:00 03/05/25 08:00 03/05/25 08:00 03/05/25 08:00 03/05/25 08:00 03/05/25 08:00 Laboratory Results - last 24 hr 03/04/25 11:58: Hgb 9.0 L, Hct 26.9 L 03/05/25 05:57: WBC 4.5 L, RBC 2.90 L, Hgb 9.1 L, Hct 26.1 L, MCV 90.0, MCH 31.4 H, MCHC 34.9, RDW 12.4, Plt Count 298, MPV 9.1, Neut % (Auto) 61.4, Lymph % (Auto) 24.4, [place] % (Auto) 10.4 H, Eos % (Auto) 2.9, Baso % (Auto) 0.7, Neut # (Auto) 2.8, Lymph # (Auto) 1.1, [place] # (Auto) 0.5, Eos # (Auto) 0.1, Baso # (Auto) 0.0, Sodium 133 L, Potassium 3.8, Chloride 96 L, Carbon Dioxide 28, Anion Gap 12.8, BUN 5 L D, Creatinine 0.80, Estimated Creat Clear 149, Estimated GFR 99, Est GFR ( Amer) 120, Glucose 101 H, Calcium 8.3 L I & O for Last 24 hours: Intake & Output 03/02/25 03/03/25 03/04/25 03/05/25 23:59 23:59 23:59 23:59 Intake Total 4310 / 4310 0 / 0 Output Total 0 / 0 0 / 0 0 / 0 Balance 0 / 710 4310 / 4310 0 / 0 Weight 103.918 kg 103.918 kg 104.644 kg Constitutional Constitutional: no acute distress, obese and cooperative *Routine HEENT Exam Head: Present normocephalic Eye: Present EOMI and PERRL ENT: Present mucous membranes moist *Routine Neck Exam Neck: Present supple; Absent lymphadenopathy *Routine Respiratory Exam Respiratory: Present CTA bilaterally *Routine Cardiovascular Exam Cardiovascular: Present RRR *Routine Abdominal Exam Abdominal: Present soft, normoactive bowel sounds and tenderness *Routine Extremities Exam Extremities: Absent cyanosis, clubbing or edema *Routine Skin Exam Skin: Present warm; Absent rash *Routine Neurological Exam Neurological: Present alert and oriented X3 Results Data Completed and Pending Labs on day of discharge: Labs from last 24 hours 03/05/25 03/04/25 05:57 11:58 WBC 4.5 L RBC 2.90 L Hgb 9.1 L 9.0 L Hct 26.1 L 26.9 L MCV 90.0 MCH 31.4 H MCHC 34.9 RDW 12.4 Plt Count 298 MPV 9.1 Neut % (Auto) 61.4 Lymph % (Auto) 24.4 [place] % (Auto) 10.4 H Eos % (Auto) 2.9 Baso % (Auto) 0.7 Neut # (Auto) 2.8 Lymph # (Auto) 1.1 [place] # (Auto) 0.5 Eos # (Auto) 0.1 Baso # (Auto) 0.0 Sodium 133 L Potassium 3.8 Chloride 96 L Carbon Dioxide 28 Anion Gap 12.8 BUN 5 L D Creatinine 0.80 Estimated Creat Clear 149 Estimated GFR 99 Est GFR ( Amer) 120 Glucose 101 H Calcium 8.3 L DS: Diagnosis Discharge Diagnosis (1) BRBPR (bright red blood per rectum): Status: Acute Code(s): K62.5 - Hemorrhage of anus and rectum (2) Hematochezia: Status: Acute Code(s): K92.1 - Melena (3) Syncope: Status: Acute Code(s): R55 - Syncope and collapse Qualifiers: Syncope type: vasovagal syncope Qualified Code(s): R55 - Syncope and collapse Meds Home Medications and Allergies Home Medications ?Medication ?Instructions ?Recorded ?Confirmed ?Type amlodipine 5 mg tablet 5 mg PO DAILY 03/12/2303/03 History enalapril maleate 20 mg tablet 40 mg PO DAILY 03/12/23 03/03/25 History lansoprazole 30 mg capsule,delayed 30 mg PO DAILY 03/0103/03/25 History release venlafaxine 75 mg capsule,extended 75 mg PO DAILY 03/0103/03/25 History release 24 hr New Prescriptions to Start Prescriptions: Allergies Allergy/AdvReac Type Severity Reaction Status Date / Time Penicillins Allergy Mild Unknown Verified 12/23/24 12:11 allergy reaction Discharge Plan Disposition Patient Disposition: Home, Self-Care Condition: Good Discharge Order Discharge Orders: Discharge Order (Routine); Ordered 03/06/25 Ordered By: Froilan Lisa Follow up Plan Follow up with: Fermin Marion II, MD [Staff Physician, Gastroenterology] - 04/27/25 9:30 am Leslie Hanna APRN [Primary Care Provider, Medical] - 03/09/25 9:40 am Prescriptions/Medication Reconciliation: Continued venlafaxine 75 mg capsule,extended release 24hr 75 mg PO DAILY Patient Comments: TAKE 1 CAPSULE BY MOUTH ONCE DAILY, DO NOT CRUSH OR CHEW enalapril maleate 20 mg tablet 40 mg PO DAILY Patient Comments: TAKE 2 TABLETS BY MOUTH ONCE DAILY amlodipine 5 mg tablet 5 mg PO DAILY Patient Comments: TAKE 1 TABLET BY MOUTH ONCE DAILY lansoprazole 30 mg capsule,delayed release(DR/EC) 30 mg PO DAILY Problem Reconciliation Problems Reviewed?: Yes Patient Discharge Instructions ACTIVITY: No heavy lifting DIET: other Patient Instructions: DI for Colonoscopy, DI for Gastrointestinal Bleeding Print Language: Danish Providers Primary Care Provider: Leslie Hanna Admit Provider: Froilan Lisa Attending Provider: Froilan Lisa
[2025-03-05] MEDS: ONDANSETRON 4MG/2ML VIAL 4 MG IV (09:44)
--- NOTE | 2025-03-05 13:13 | P.PNANES_ITS ---
[facility] Disclaimer: The information contained in this section may have been updated after the patient was seen, as this information can be updated by other users. Medical History History of arthroplasty of right wrist History of gastroesophageal reflux (GERD) Hypertension Surgical History Hx of total knee replacement Family History Brother Anal cancer Grandfather Lung cancer Social History (Updated 03/03/25 @ 21:34 by Lucina Pearson RN) Smoking Status: Never smoker alcohol intake: never substance use type: denies use current occupational status: employed Travel in the last 8 weeks?: None [facility] Anesthesia Checklist Patient Identification Patient Identification: Arm Band and Verbal (Name & ) Structural Data Admitted From: Home Planned Operative Procedure/s: Colonoscopy Consent for Planned Operative Procedure(s) Verified: Yes Verified Documents: Surgical Consent NPO Status Verified Time NPO: 00:00 Chart Verification Results Verified: CBC and BMP Additional verifications Anesthesia Reactions: No Airway Assessment Mallampati Score:: Class II C-Spine Mobility Assessed: Yes TMJ Mobility Assessed: Yes Dentition: Good Dentition Neurological Assessment Level of Consciousness: Awake, Alert and Appropriate Hx Seizures: No Numbness or tingling in extremities: No Anesthesia Plan Anesthesia Risk discussed: Yes Anesthesia Plan: Verified ASA Class: II Anesthesia Type: MAC
--- NOTE | 2025-03-05 13:14 | PC.NURSE ---
Pt. off the floor for colonoscopy.
--- NOTE | 2025-03-05 13:22 | P.PCN_ITS ---
[facility] Procedure Note Date: 03/05/25 Time: 14:00 Procedure Note:: Colonoscopy Procedure Report: Colonoscopy with epinephrine injection and Endo Clip placement (Mantis and regular) Endoscopist: Fermin Marion II, MD Referring physician: MARIE Robb Date of Procedure: March 05, 2025 Equipment: Olympus [id number] adult colonoscope Sedation: MAC sedation Indication: Mr. Johnson is a 59-year-old inpatient gentleman for diagnostic/therapeutic colonoscopy. He was admitted for post colonoscopy post polypectomy lower GI bleed. The patient did have a colonoscopy on Saturday around 1030?11 AM (David Andrea MD at [facility]) and this was a surveillance colonoscopy after having a colonoscopy a year ago at which time he had a more advanced adenoma of the cecum that was removed via endoscopic mucosal resection. At that time he states that endoclips were placed. This time, there was scar tissue identified at the base of the previous EMR in the cecum and this was resected via cold snare. No clips were placed. There was also a 20 mm broad- based subtle lesion seen in the ascending colon and submucosal injection and endoscopic snare resection was performed. The procedure report does not state whether this was done cold or hot and it does not show whether endoclips were placed. On discussion with GI provider, no clips were placed. The patient does state that his hematochezia began Saturday and he had 3 bouts in total. Yesterday, he kept passing clots that would pass every few hours. Bowel preparation was started this morning and there was still a lot of blood and clot with the bowel preparation. Hemoglobin and hematocrit were 11.3 and 32.3 on 03/03 and today his most recent hemoglobin hematocrit were 9.1 and 26.1. He is not on any anticoagulation and has not taken any aspirin or NSAIDs. He reports no heavy lifting or exercise after the colonoscopy. Procedure: Prior to the procedure, a history and physical exam was performed, and patient's medications and allergies were reviewed. The risks, benefits and alternatives of the sedation and procedure were discussed with the patient. All questions were answered and informed consent was obtained. The patient was brought to the procedure room. Patient identification and proposed procedure were verified by the physician and the nurse. The patient was placed in a left lateral decubitus position and the scope was passed under direct vision. Throughout the procedure, the patient's blood pressure, pulse, and oxygen saturations were monitored continuously. The colonoscopy was accomplished without difficulty. The patient tolerated the procedure well. Findings: On digital rectal examination there was normal rectal tone. There were no external hemorrhoids. The colonoscope was introduced through the anal canal to the rectum and advanced to the cecum. The ileocecal valve and appendiceal orifice were identified. The scope was advanced a short distance into the ileum which appeared grossly normal. The scope was then withdrawn into the colon. There was blood and clot identified throughout the colon. Within the cecum there was a postpolypectomy ulceration that was fairly wide based and measured about 20 mm in width. There was clot adjacent. The clot was cleared and epinephrine was injected into the ulceration although there were no visible vessels and active heme identified. There was blanching. 5 cc of 1-10,000 epinephrine were injected submucosally with the injector needle. Subsequently, the Mantis clip/larger clip was utilized to close the main body of the post polypectomy ulcer and then a another Endo Clip was utilized to seal towards the edge with complete closure. Next, the second larger polypectomy site was located behind the haustral fold and was best visualized in the retroflexed position. This was even longer in size and there was some adjacent clot. Again another 5 cc of 1-10,000 epinephrine was injected into 3 aliquots at different locations. There was no visible vessel or active heme. The Mantis clip was used to close the main body of the post polypectomy ulcer and then 2 additional regular clips were utilized to close the edges. Upon withdrawal there was a lot of blood and clot throughout and this was suctioned and the mucosa was inspected carefully. There was extensive diverticulosis throughout the descending and sigmoid colon. Upon retroflexion within the rectum there were grade 1-2 nonbleeding internal hemorrhoids. Impression: 1. Post colonoscopy polypectomy bleed?status post epinephrine injection and Endo Clip placement on 2 sites of larger mucosal removal (cecum and ascending) 2. Extensive left-sided diverticulosis Plan: I will discuss the findings with the patient and family. I would recommend keeping the patient for another 12 hours with IV octreotide (to reduce splanchnic flow).
[2025-03-05] MEDS: EPINEPHrine 0.1 MG/ML 10ML SYRINGE (CRASH CART) 0.8 MG IV (13:48)
--- NOTE | 2025-03-05 17:06 | PC.NURSE ---
Aox 4, up ad leeann, 20g L AC, on RA, on a clear liquid diet, Colonoscopy done today see notes.
[2025-03-05] MEDS: PANTOPRAZOLE 40MG TABLET 40 MG PO (20:43)
[2025-03-06] VITALS: BP 141/93; PULSE 68; PULSE 75; RESP 16; TEMP 36.6; O2SAT 98
[2025-03-06] MEDS: HYDROCODONE/APAP 5/325 MG TABLET 1 TAB PO (01:05)
--- NOTE | 2025-03-06 03:53 | PC.NURSE ---
Pt has remained A&OX4 and has tolerated room air. Tolerating diet well. He did complain of pain in his left knee once and was medicated per MAR. Octreotide has remained infusing at 25.5ml/ hr. No other complaints at this time, call light within reach.
[2025-03-06 04:00] VITALS: BP 130/80; PULSE 65; PULSE 73; RESP 16; TEMP 36.7; O2SAT 98; BMI 34.1
[2025-03-06 07:41] LABS: Hematocrit 25.6 % (42.0-52.0); Hemoglobin 9.0 g/dL (14.1-18.0); Immature Granulocytes % 0.2 %; Mean Corpuscular HGB Conc 35.2 g/dL (31.8-35.4); Mean Corpuscular Hemoglobin 31.8 pg (27.0-31.2); Mean Corpuscular Volume 90.5 fl (80-94); Nucleated Red Blood Cells % 0 %; Platelet Count 294 K/mm3 (142-424); Red Blood Count 2.83 M/mm3 (4.60-6.20); Red Cell Distribution Width-SD 40.7 fL; White Blood Count 4.3 K/mm3 (4.8-10.8)
[2025-03-06 07:55] LABS: Anion Gap 8.9 mEq/L (5-15); Blood Urea Nitrogen 2 mg/dl (9-20); Carbon Dioxide 27 mmol/L (22.0-30.0); Chloride 93 mmol/L (98-107); Creatinine Clearance Estimated 149 mL/min (50-200); Creatinine,Serum 0.80 mg/dl (0.66-1.25); Potassium 3.9 mmoL/L (3.5-5.1); Sodium 125 mmol/L (136-145)
[2025-03-06 07:56] LABS: Calcium 8.6 mg/dl (8.4-10.2); Estimated Glomerular Filt Rate 99 ml/min (>60); GFR (African American) 120 ML/MIN (>60); Glucose 118 mg/dl (74-100)
[2025-03-06 08:00] VITALS: BP 128/84; PULSE 60; PULSE 74; RESP 12; TEMP 36.6; O2SAT 97
[2025-03-06] MEDS: AMLODIPINE 5MG TABLET 5 MG PO (08:13)
[2025-03-06] MEDS: VENLAFAXINE XR 75MG CAPSULE 75 MG PO (08:13)
[2025-03-06] MEDS: LISINOPRIL 20MG TABLET 40 MG PO (08:13)
--- NOTE | 2025-03-06 11:43 | EXP.DC.SUM ---
General Admission date:: 03/03/25 HPI HPI HPI: Mr. Johnson is a 59-year-old gentleman who is admitted secondary to post colonoscopy post polypectomy lower GI bleed. The patient did have a colonoscopy on Saturday around 1030?11 AM (David Andrea MD at [facility]) and this was a surveillance colonoscopy after having a colonoscopy a year ago at which time he had a more advanced adenoma of the cecum that was removed via endoscopic mucosal resection. At that time he states that endoclips were placed. This time, there was scar tissue identified at the base of the previous EMR in the cecum and this was resected via cold snare. No clips were placed. There was also a 20 mm broad-based subtle lesion seen in the ascending colon and submucosal injection and endoscopic snare resection was performed. The procedure report does not state whether this was done cold or hot and it does not show whether endoclips were placed. The patient does state that his hematochezia began yesterday and he had 3 bouts in total. His last bout was in the ED last evening. He did have passage of a very small amount of clot later in the evening. He does have some gas discomfort in the lower abdomen. He is not on any anticoagulation and has not taken any aspirin or NSAIDs. He reports no heavy lifting or exercise after the colonoscopy. Exam Data for Last 24 hours Vital signs and Labs for Last 24 Hours: Temp Pulse Resp BP Pulse Ox O2 Del Method O2 Flow Rate 97.8 F 74 12 128/84 97 Room Air 3 03/06/25 08:00 03/06/25 08:00 03/06/25 08:00 03/06/25 08:00 03/06/25 08:00 03/06/25 11:00 03/05/25 14:15 Laboratory Results - last 24 hr 03/06/25 06:40: WBC 4.3 L, RBC 2.83 L, Hgb 9.0 L, Hct 25.6 L, MCV 90.5, MCH 31.8 H, MCHC 35.2, RDW 12.3, Plt Count 294, MPV 9.1, Neut % (Auto) 61.0, Lymph % (Auto) 23.9, Haines % (Auto) 10.6 H, Eos % (Auto) 3.8, Baso % (Auto) 0.5, Neut # (Auto) 2.6, Lymph # (Auto) 1.0, Haines # (Auto) 0.5, Eos # (Auto) 0.2, Baso # (Auto) 0.0, Sodium 125 L, Potassium 3.9, Chloride 93 L, Carbon Dioxide 27, Anion Gap 8.9, BUN 2 L D, Creatinine 0.80, Estimated Creat Clear 149, Estimated GFR 99, Est GFR ( Amer) 120, Glucose 118 H, Calcium 8.6 I & O for Last 24 hours: Intake & Output 03/03/25 03/04/25 03/05/25 03/06/25 23:59 23:59 23:59 23:59 Intake Total 4310 / 4310 1040 / 1040 709.15 / 709.15 Output Total 0 / 0 0 / 0 500 / 500 0 / 0 Balance 0 / 710 4310 / 4310 540 / 540 709.15 / 709.15 Weight 103.918 kg 103.918 kg 104.644 kg 104.553 kg Results Data Completed and Pending Labs on day of discharge: Labs from last 24 hours 03/06/25 06:40 WBC 4.3 L RBC 2.83 L Hgb 9.0 L Hct 25.6 L MCV 90.5 MCH 31.8 H MCHC 35.2 RDW 12.3 Plt Count 294 MPV 9.1 Neut % (Auto) 61.0 Lymph % (Auto) 23.9 Haines % (Auto) 10.6 H Eos % (Auto) 3.8 Baso % (Auto) 0.5 Neut # (Auto) 2.6 Lymph # (Auto) 1.0 Haines # (Auto) 0.5 Eos # (Auto) 0.2 Baso # (Auto) 0.0 Sodium 125 L Potassium 3.9 Chloride 93 L Carbon Dioxide 27 Anion Gap 8.9 BUN 2 L D Creatinine 0.80 Estimated Creat Clear 149 Estimated GFR 99 Est GFR ( Amer) 120 Glucose 118 H Calcium 8.6 DS: Diagnosis Discharge Diagnosis (1) BRBPR (bright red blood per rectum): Status: Acute Code(s): K62.5 - Hemorrhage of anus and rectum (2) Hematochezia: Status: Acute Code(s): K92.1 - Melena (3) Syncope: Status: Acute Code(s): R55 - Syncope and collapse Qualifiers: Syncope type: vasovagal syncope Qualified Code(s): R55 - Syncope and collapse Meds Home Medications and Allergies Home Medications ?Medication ?Instructions ?Recorded ?Confirmed ?Type amlodipine 5 mg tablet 5 mg PO DAILY 03/12/23 03/03/25 History enalapril maleate 20 mg tablet 40 mg PO DAILY 03/12/23 03/03/25 History lansoprazole 30 mg capsule,delayed 30 mg PO DAILY 03/12/23 03/03/25 History release venlafaxine 75 mg capsule,extended 75 mg PO DAILY 03/12/23 03/03/25 History release 24 hr New Prescriptions to Start Prescriptions: Allergies Allergy/AdvReac Type Severity Reaction Status Date / Time Penicillins Allergy Mild Unknown Verified 12/23/24 12:11 allergy reaction Discharge Plan Disposition Patient Disposition: Home, Self-Care Condition: Good Discharge Order Discharge Orders: Discharge Order (Routine); Ordered 03/06/25 Ordered By: Froilan Lisa Follow up Plan Follow up with: Fermin Marion II, MD [Staff Physician, Gastroenterology] - 04/27/25 9:30 am Leslie Hanna APRN [Primary Care Provider, Medical] - 03/09/25 9:40 am Prescriptions/Medication Reconciliation: Continued venlafaxine 75 mg capsule,extended release 24hr 75 mg PO DAILY Patient Comments: TAKE 1 CAPSULE BY MOUTH ONCE DAILY, DO NOT CRUSH OR CHEW enalapril maleate 20 mg tablet 40 mg PO DAILY Patient Comments: TAKE 2 TABLETS BY MOUTH ONCE DAILY amlodipine 5 mg tablet 5 mg PO DAILY Patient Comments: TAKE 1 TABLET BY MOUTH ONCE DAILY lansoprazole 30 mg capsule,delayed release(DR/EC) 30 mg PO DAILY Problem Reconciliation Problems Reviewed?: Yes Patient Discharge Instructions ACTIVITY: No heavy lifting DIET: other Patient Instructions: DI for Colonoscopy, DI for Gastrointestinal Bleeding Print Language: Frisian Providers Primary Care Provider: Leslie Hanna Admit Provider: Froilan Lisa Attending Provider: Froilan Lisa
[2025-03-06 12:00] VITALS: PULSE 60
--- NOTE | 2025-03-08 11:51 | SW/DCPLANNER ---
Spoke with patient on the phone. Patient stated that he is doing good. Patient stated that he is aware of his upcoming appointments. Patient stated that he was not prescribed any new medicine. Patient stated that he has no concerns or questions at this time. Cristina Suggs
== END 2025-03-06 12:44 | disposition home or self-care (01) | DRG 908 ==
LOC: ER 19:41 → 2ND 20:10
PROVIDERS: Internal Medicine Gastroenterology; Nurse Practitioner Family; Physician Assistant; Admitting Provider Student in an Organized Health Care Education/Training Program; Emergency Provider Student in an Organized Health Care Education/Training Program; PCP Nurse Practitioner Family; Visit Provider Student in an Organized Health Care Education/Training Program
PROC: 0DJD8ZZ Inspection of Lower Intestinal Tract, Via Natural or Artificial Opening Endoscopic (ICD-10-PCS; CPT 45378; principal; 2025-03-05 13:30)
DX: K91.840 Postprocedural hemorrhage of a digestive system organ or structure following a digestive system procedure (principal); D62 Acute posthemorrhagic anemia; K92.1 Melena; E87.1 Hypo-osmolality and hyponatremia; R55 Syncope and collapse; I10 Essential (primary) hypertension; K21.9 Gastro-esophageal reflux disease without esophagitis; F32.9 Major depressive disorder, single episode, unspecified; K57.30 Diverticulosis of large intestine without perforation or abscess without bleeding; K64.8 Other hemorrhoids; Y83.8 Other surgical procedures as the cause of abnormal reaction of the patient, or of later complication, without mention of misadventure at the time of the procedure; Y73.2 Prosthetic and other implants, materials and accessory gastroenterology and urology devices associated with adverse incidents; Z88.0 Allergy status to penicillin; Z79.899 Other long term (current) drug therapy
CPT/HCPCS: 36415; 74174; 80048; 80053; 82272; 83605; 83690; 85014; 85018; 85025; 85610; 85730; 86850; 93005; 99285; C1760; G0328; J0169; J2003; J2354; J2405; J2704; J7030; J7050; Q9967